=== PATIENT | female | born 1955 | race Two or more races ===

== ENCOUNTER 2024-04-14 12:42 | Emergency (ER) | payer OTHER, SELFPAY ==
--- NOTE | ~2024-04-14 | XR_ITS ---
EXAMINATION: XR CHEST CLINICAL INFORMATION: chest pain COMPARISON: None available. TECHNIQUE: Frontal view of the chest was obtained. FINDINGS: No significant abnormality is noted involving the heart, lungs, mediastinum, bony thorax or soft tissues. XR/XR chest 1V IMPRESSION: Unremarkable examination. Electronically signed by: Luis Flores MD 04/14/2024 04:04 PM [facility]
--- NOTE | ~2024-04-14 | XR_ITS ---
EXAMINATION: XR ABDOMEN KUB CLINICAL INDICATION: constipation COMPARISON: None available. TECHNIQUE: AP view of the abdomen. FINDINGS: The bowel gas pattern is normal with no evidence of ileus or obstruction. Minimal gaseous distention of the transverse colon. Moderate stool in the colon with very little stool in the rectum. No unusual soft tissue calcifications are noted. The bones are unremarkable. XR/XR KUB IMPRESSION: Moderate stool burden. No evidence of bowel obstruction. Electronically signed by: Richie Dahl MD 04/14/2024 07:40 PM [facility]
[2024-04-14 13:29] VITALS: BP 106/54; PULSE 66; RESP 18; TEMP 36.8; O2SAT 96; BMI 23.6
--- NOTE | 2024-04-14 13:37 | ECG_ITS ---
Test Reason : DIZZINESS Blood Pressure : / mmHG Vent. Rate : 060 BPM Atrial Rate : 060 BPM P-R Int : 144 ms QRS Dur : 086 ms QT Int : 396 ms P-R-T Axes : 065 013 017 degrees QTc Int : 396 ms Normal sinus rhythm Normal ECG No previous ECGs available Referred By: Generic ED Physician Electronically Signed By:BEN RIVAS MD
[2024-04-14 14:31] LABS: MANUAL DIFF FLAG NO
[2024-04-14 14:34] LABS: Basophils Percent Auto 0.6 % (0-2); Eosinophils Percent Auto 0.6 % (0-4); Hematocrit 33.6 % (37.0-47.0); Hemoglobin 11.8 g/dl (12.0-16.0); Imm Gran Abs Auto 0.02 X10*3/uL (0.00-0.03); Imm Gran Pct Auto 0.3 % (0.0-0.4); Lymphocytes Absolute Auto 1.7 X10*3/uL (1.2-4.9); Mean Corpuscular HGB Conc 35.1 g/dl (31.0-35.0); Mean Corpuscular Hemoglobin 31.1 pg (27.0-33.0); Mean Corpuscular Volume 88.4 fL (80.0-98.0); Monocytes Absolute Auto 0.6 X10*3/uL (0.1-1.2); Monocytes Percent Auto 8.6 % (2-11); Neutrophils Absolute Auto 4.4 x10*3/uL (2.0-8.3); Neutrophils Percent Auto 64.9 % (45-73); Platelet Count 246 X10*3/uL (160-400); Red Cell Distribution Width 12.9 % (11.0-16.0); White Blood Count 6.7 X10*3/uL (4.8-10.8)
[2024-04-14 14:49] LABS: Alanine Aminotransferase 20 U/L (0-31); Albumin Level 4.4 g/dL (3.5-5.0); Alkaline Phosphatase 87 U/L (39-117); Anion Gap 12 (12-20); Aspartate Amino Transferase 32 U/L (5-31); Bilirubin Total 0.3 mg/dL (0.0-1.0); Blood Urea Nitrogen 18 mg/dL (9-16); Calcium 10.1 mg/dL (8.4-10.2); Carbon Dioxide 26 mmol/L (22-29); Chloride 94 mmol/L (96-108); Estimated Glomerular Filt Rate 45; Glucose Random 99 mg/dL (60-115); Lipase 35 U/L (8-78); Magnesium 1.7 mg/dL (1.6-2.6); Potassium 3.9 mmol/L (3.3-5.1); Sodium 128 mmol/L (135-145); Total Protein 7.2 g/dL (6.5-8.0)
[2024-04-14 14:52] LABS: Troponin-I High Sensitivity 5.6 ng/L (<3.5-17.0)
[2024-04-14 15:14] LABS: Influenza A PCR NEGATIVE (Negative); Influenza B PCR NEGATIVE (Negative); Resp Syncy Virus RNA Qual PCR NEGATIVE (Negative); SARS COV2 PCR INHOUSE NEGATIVE (Negative)
[2024-04-14 18:18] VITALS: BP 122/59; PULSE 62; RESP 16; TEMP 36.1; O2SAT 98
--- NOTE | 2024-04-14 18:18 | ED_ITS ---
HPI - General Adult General Chief complaint: General Medical Stated complaint: headache, bp problem Time Seen by Provider: 04/14/24 20:55 Source: patient, family and old records reviewed Mode of arrival: ambulatory Limitations: no limitations History of Present Illness ED Provider: KVNG HARRELL narrative: 68 yo female with PMH of HLD, HTN managed by Lisinopril / HCTZ, metoprolol, amlodipine, edema on lasix 20mg, anxiety on lorazepam who has been dealing with headaches for months top of head and tingling. No associated n/v. She has been having issues where BP is fine during the day then up at night and family thought this was causing her headache. Her BP was low at a PCP appointment so 3 weeks ago they cut metoprololto 25mg daily. She still has the high BP at night but in the AM it is fine. Her headaches are at night - she has seen her PCP and has been given meds for it but it does not help she even had normal brain MRI. Family here today as they are worried about the BP also they tell me on average she drinks 5 bottles of 16 oz water a day to stay hydrated complaint: BP Onset (ago): month(s) Location: head Radiation: non-radiation Severity: moderate Quality: other Pain Consistency: intermittent Relieving factors: none Exacerbating factors: other (nighttime) Associated symptoms: denies other symptoms Treatments prior to arrival: other Related Data Allergies Allergy/AdvReac Type Severity Reaction Status Date / Time No Known Allergies Allergy Verified 04/14/24 13:37 Review of Systems 2 Review of Systems: Constitutional : No Fever, No Chills, No Fatigue ENT/Mouth : No sore throat, No Rhinorrhea Eyes: No Eye Pain, No Swelling, No Redness Cardiovascular : No Chest Pain, No SOB, No Dyspnea on Exertion Respiratory : No Cough, No Sputum Gastrointestinal : No Nausea, No Vomiting, No Diarrhea, No abdominal Pain Genitourinary : No Dysuria, No Urinary Frequency, No Hematuria, Musculoskeletal : No joint pain, No Myalgias, No Joint Swelling Skin : No Skin Lesions, No rash Neuro : No Weakness, No Numbness, No Dizziness, positive Headache All other systems reviewed and are negative PMFSH Social History Social History Smoked in Last 30 Days: No Use of substances other than those prescribed or required for medical reasons: No Advance Directives: No Advance Directives Information Provided: Yes Physical Exam ED Vital Signs: Vital Signs - 24 hr 04/14/24 13:29 04/14/24 18:18 04/14/24 20:58 Temperature 98.2 F 97 F 97.6 F Pulse Rate 66 62 61 Respiratory Rate 18 16 18 Blood Pressure 106/54 L 122/59 L 169/50 H Pulse Oximetry 96 98 98 Oxygen Delivery Method Room Air Room Air Room Air BMI result Body Mass Index 23.6 Appearance: Alert. Oriented X3. No acute distress. Eyes: Pupils equal, round and reactive to light. ENT: Pharynx normal. Neck: Normal inspection. Neck supple. CVS: Normal heart rate and rhythm. Pulses normal. Respiratory: No respiratory distress. Breath sounds normal. Abdomen: Soft and nontender. Skin: Skin warm and dry. Normal skin color. Normal skin turgor. Extremities: No lower extremity edema. No calf ttp Neuro: Oriented X 3. No motor deficit. No sensory deficit. Course Course Course Narrative: This is an RME: Additional HPI, ROS, PE not included below will be deferred to primary provider. RME assessment and note performed by: Mecca Ervin PA-C This is a 88-fcwn-fal-female, with hx of arthitis, HLD, HTN, peripheral edema, who presents to the ER with complaints of decreased appetite, dizziness, headaches fluctuation in blood pressure. Plan: Labs, UA, EKG, further ER evaluation needed. Medications Administered Generic Name Dose Route Start Last Admin Trade Name Freq PRN Reason Stop Dose Admin Sodium Chloride 500 mls @ 500 mls/hr 04/14/24 21:17 04/14/24 22:07 Ns IV 04/14/24 22:16 Not Given .Q1H ONE Medical Decision Making Medical Decision Making MDM Narrative: 68 yo female with PMH of HLD, HTN managed by Lisinopril / HCTZ, metoprolol, amlodipine, edema on lasix 20mg, anxiety on lorazepam here with c/o chronic headache though no fevers and given chronicity doubt SAH or mass or BAND SHOVER infection - she had normal MRI during the episodes. She also has fluctuating BP and I am concerned about her water intake. At this time her Na is low at 128 but she has no symptoms and I think just holding her water will correct it. She is not altered or clinically dry on exam. I am not going to repeat imaging given her MRI. I think cutting her water intake down and repeating Na in 2 days as well as taking amlodipine at dinner time might help Differential Diagnosis Differential Diagnoses: The differential diagnosis associated with the presentation includes too much water intake, med reconciliation, HTN Admission/Observation Consideration of admission/observation: Escalation of care including admission/observation considered no drop in NA can be managed closely as outpatient Lab Data MDM Lab Attestation statement: I reviewed the patient's lab results. 04/14/24 14:27 04/14/24 21:40 Labs: Lab Results 04/14/24 04/14/24 04/14/24 Range/Units 14:27 19:48 21:40 WBC 6.7 (4.8-10.8) X10*3/uL RBC 3.80 L (4.20-5.50) X10*6/uL Hgb 11.8 L (12.0-16.0) g/dl Hct 33.6 L (37.0-47.0) % MCV 88.4 (80.0-98.0) fL MCH 31.1 (27.0-33.0) pg MCHC 35.1 H (31.0-35.0) g/dl RDW 12.9 (11.0-16.0) % Plt Count 246 (160-400) X10*3/uL MPV 10.0 (9.4-12.3) fL Immature Gran % (Auto) 0.3 (0.0-0.4) % Neut % (Auto) 64.9 (45-73) % Lymph % (Auto) 25.0 (20-40) % [place] % (Auto) 8.6 (2-11) % Eos % (Auto) 0.6 (0-4) % Baso % (Auto) 0.6 (0-2) % Lymph # (Auto) 1.7 (1.2-4.9) X10*3/uL [place] # (Auto) 0.6 (0.1-1.2) X10*3/uL Eos # (Auto) 0.0 (0.0-0.4) X10*3/uL Baso # (Auto) 0.0 (0.0-0.2) X10*3/uL Abs Immat Gran (auto) 0.02 (0.00-0.03) X10*3/uL Absolute Neuts (auto) 4.4 (2.0-8.3) x10*3/uL Absolute Nucleated RBC 0.000 (0.0-0.012) X10*3/uL Nucleated RBC % (auto) 0.0 (0.0-0.2) /100WBC Sodium 128 L 128 L (135-145) mmol/L Potassium 3.9 (3.3-5.1) mmol/L Chloride 94 L (96-108) mmol/L Carbon Dioxide 26 (22-29) mmol/L Anion Gap 12 (12-20) BUN 18 H (9-16) mg/dL Creatinine 1.18 (0.5-1.4) mg/dL Estim Creat Clear Calc 35.0 Estimated GFR 45 Random Glucose 99 (60-115) mg/dL Calcium 10.1 (8.4-10.2) mg/dL Magnesium 1.7 (1.6-2.6) mg/dL Total Bilirubin 0.3 (0.0-1.0) mg/dL AST 32 H (5-31) U/L ALT 20 (0-31) U/L Alkaline Phosphatase 87 (39-117) U/L Troponin I High Sens 5.6 (<3.5-17.0) ng/L Total Protein 7.2 (6.5-8.0) g/dL Albumin 4.4 (3.5-5.0) g/dL Lipase 35 (8-78) U/L Urine Color Yellow Urine Appearance Clear Urine pH 5.0 (5.0-9.0) Ur Specific [place] 1.025 (1.005-1.025) Urine Protein Negative (Neg-Trace) mg/dL Urine Glucose (UA) Negative (Negative) mg/dL Urine Ketones Negative (Negative) mg/dL Urine Blood Negative (Negative) Urine Nitrite Negative (Negative) Ur Leukocyte Esterase Moderate (2+) H (Negative) Urine RBC 0-2 (0-2) /HPF Urine WBC 6-10 H (0-5) /HPF Ur Squamous Epith Cells 0-2 (0-2) /HPF Urine Bacteria None Seen (None Seen) Hyaline Casts 3-5 (0-2) /LPF Influenza Type A (PCR) NEGATIVE (Negative) Influenza Type B (PCR) NEGATIVE (Negative) RSV RNA Qual (PCR) NEGATIVE (Negative) SARS-CoV-2 RNA (RT-PCR) NEGATIVE (Negative) Independent Interpretation I performed an independent interpretation of an: EKG and Plain X-Ray (constipated) Interpretation: Rate: 60 Rhythm: NSR [place]: normal Normal P waves. Normal KRISTY. Normal QRS complex. ST T wave : inverted t waves V1 and III no ENDY qTC: 396 prior studies: no acute ischemia The study has been interpreted contemporaneously by me. . Radiology Impression Discussion of test interpretation with radiology: I have reviewed the radiologist's reading. Independent Historian Clinical information obtained from an independent historian. History obtained from or confirmed by: Other (daughter) External Record Review External record reviewed: Outpatient record Discharge Plan Discharge Clinical Impression: Fluctuating blood pressure, Acute hyponatremia Chronic headache Qualifiers: Headache type: unspecified Intractability: not intractable Qualified Code(s): R 51.9 - Headache, unspecified Patient Disposition: Home, Self-Care Instructions: Hyponatremia (ED), Chronic Hypertension (ED) Additional Instructions: labs other than drop in sodium which is due to your water intake ONLY DRINK 3 BOTTLES OF 16 OUNCES OF WATER START TAKING AMLODIPINE 5MG AT DINNER TIME FOLLOW UP WITH YOUR DOCTOR AND REPEAT YOUR SODIUM LEVEL ON FRIDAY PLEASE RETURN HERE FOR ANY WORSENING SYMPTOMS OR CONCERNS. Print Language: Tongan
[2024-04-14 19:58] LABS: Appearance Urine Clear; Color Urine Yellow; Glucose Urine UA Negative (Negative); Leukocyte Esterase Urine Moderate (2+) (Negative); Nitrite Urine Negative (Negative); Specific Gravity - Urine 1.025 (1.005-1.025); UMIC TRIGGER UACC YES; Urine Blood Negative (Negative); Urine Ketones Negative (Negative); Urine Protein Negative (Neg-Trace)
[2024-04-14 20:10] LABS: Bacteria Urine None Seen (None Seen); RBC Urine 0-2 /HPF (0-2); Squamous Epithelial Cell Urine 0-2 /HPF (0-2); UACC Culture Trigger YES
[2024-04-14 20:58] VITALS: BP 169/50; PULSE 61; RESP 18; TEMP 36.4; O2SAT 98
[2024-04-14 21:57] LABS: Sodium 128 mmol/L (135-145)
[2024-04-14 22:25] VITALS: BP 143/56; PULSE 62; RESP 18; TEMP 36.4; O2SAT 97
[2024-04-14 22:32] VITALS: BP 143/56; PULSE 62; RESP 18; TEMP 36.4; O2SAT 97
== END 2024-04-14 22:39 | disposition home or self-care (01) ==
PROVIDERS: Physician Assistant Medical; Emergency Provider Emergency Medicine; PCP Physician Assistant
DX: R51.9 Headache, unspecified (principal); E87.1 Hypo-osmolality and hyponatremia; I99.8 Other disorder of circulatory system; R60.0 Localized edema; Z03.818 Encounter for observation for suspected exposure to other biological agents ruled out; I10 Essential (primary) hypertension; E78.5 Hyperlipidemia, unspecified; Z79.899 Other long term (current) drug therapy
CPT/HCPCS: 0241U; 36415; 71045; 74018; 80053; 81001; 81003; 83690; 83735; 84295; 84484; 85025; 87086; 93005; 99283; 99284

== ENCOUNTER → 2024-04-14 13:37 | Outpatient (BNV) | payer OTHER, SELFPAY | PROVIDERS: PCP Physician Assistant; Visit Provider Internal Medicine Cardiovascular Disease | DX: R42 Dizziness and giddiness (principal) | CPT/HCPCS: 93010 ==

== ENCOUNTER 2024-04-19 12:23 | Outpatient (AMB) | payer OTHER, SELFPAY ==
--- NOTE | 2024-04-19 12:29 | MHC.OFFVIS ---
Vital Signs 04/19/24 12:34 Height 5 ft 2 in Weight 132 lb BMI 24.1 BP 98/60 Blood Pressure Location Lt brachial Position Sitting Pulse 77 Pulse Source Pulse Oximeter Pulse Oximetry (%) 98 Oxygen Delivery Method Room Air Intake Visit Reasons: [id number] / BP problem Ostomy Rn Required: No Accompanied by: Daughter Allergies No Known Allergies Allergy (Verified 04/19/24 12:35) Do you need a note to return to daycare/school/sports/work: No HPI Comments Details: 68y/o female comes here for evaluation of headaches and dizziness. It started about 4 - 6months ago. she describes the headaches are tingling in the parietal region and strong pressure . she saw her PCP at that time . MRI brain was normal as per patient.she says the headaches lasts the whole day. she has light sensitivity and nausea. she takes tylenol- helps for 2 hrs and recurs again.she was taking tylenol 1300mg q 2 hrs and has decreased to q 3 hrs. She was given sumatriptan but it makes her dizzy. she was recently in ER for hyponatremia . Her furosemide was stopped. Her sodium was 128 . she also had fluctuating BP as per ER notes. [facility] Medical History (Updated 04/19/24 @ 13:04 by Nadja Alcantara MD) Headache Cervicalgia Insomnia Depression Arthritis HTN (hypertension) Physical Exam Vital Signs: Last Vital Signs Pulse 77 04/19/24 12:34 BP 98/60 04/19/24 12:34 Pulse Ox 98 04/19/24 12:34 Oxygen Delivery Method Room Air 04/19/24 12:34 BMI result Body Mass Index 24.1 Const Other: patient has cough and clod. she says she was tested for COVID and was negative. General: cooperative and comfortable Nutritional Appearance: average body habitus Orientation/consciousness: patient oriented x3 Eyes Pupils: Equal, round and reactive pupils present Neuro Other: Neck - pain in the right splenius, occipitalis, semispinalis and trapezius. General: patient oriented x3, gait normal, tone normal, moves all extremities and no focal motor deficits Cranial nerves: Yes Facial sensation intact/muscles of mastication intact, Yes Equal, round and reactive pupils present, Yes Bilaterally intact EOM present, Yes Nystagmus not present, Yes Normal facial strength present, Yes Midline tongue present, Yes Symmetric palate elevation present and Yes Ability to bilaterally elevate shoulders present Cognition (Neuro): normal cognition Gait exam (Neuro): Normal gait present Motor exam (neuro): 5/5 motor strength present throughout and Normal motor muscle tone present throughout Deep tendon reflexes (DTR's): Right triceps reflex intensity grade: 1+, Left triceps reflex intensity grade: 1+, Rt Biceps (C5, C6): 1+, Left biceps reflex intensity grade: 1+, Right brachioradialis reflex intensity grade: 1+, Left brachioradialis reflex intensity grade: 1+, Right patellar reflex intensity grade: 1+ and Left patellar reflex intensity grade: 1+ Coordination: [id number] test normal Assessment & Plan Assessment & Plan (1) Cervicalgia: Code(s): M54.2 - Cervicalgia Category: Medical (2) Headache: Code(s): R51.9 - Headache, unspecified Category: Medical Qualifiers: Headache type: cervicogenic headache Qualified Code(s): G44.86 - Cervicogenic headache Plan Suggested to decrease tylenol use as it may be causing rebound headaches Increase baclofen 10 mg bid PT for myofascial release. will cosnider sleep study F/u PCP for her flu like symptoms Orders: Orders PT Evaluation and Treatment Today M54.2 - Cervicalgia Medications: New baclofen 10 mg PO BID 60 tabs 2RF Coding Level of Care Code New Pt Level 4 (28340) Diagnoses Cervicalgia M54.2 Cervicogenic headache G44.86 Headache type: cervicogenic headache
[2024-04-19 12:34] VITALS: BP 98/60; PULSE 77; O2SAT 98; BMI 24.1
== END 2024-04-19 13:15 | disposition home or self-care (01) ==
PROVIDERS: PCP Physician Assistant; Visit Provider Psychiatry & Neurology Neurology
DX: M54.2 Cervicalgia (principal); G44.86 Cervicogenic headache
CPT/HCPCS: 99204

== ENCOUNTER → 2024-04-19 12:23 | Outpatient (BNVA) | payer OTHER, SELFPAY | PROVIDERS: PCP Physician Assistant; Visit Provider Psychiatry & Neurology Neurology | DX: G44.86 Cervicogenic headache (principal); M54.2 Cervicalgia; R42 Dizziness and giddiness | CPT/HCPCS: 99202 ==

== ENCOUNTER 2024-07-22 09:33 | Outpatient (AMB) | payer OTHER, SELFPAY ==
--- NOTE | 2024-07-22 09:38 | MHC.OFFVIS ---
Vital Signs 07/22/24 09:39 Height 5 ft 2 in Weight 135 lb BMI 24.7 BP 140/78 H Blood Pressure Location Rt brachial Position Sitting Pulse 57 Pulse Source Pulse Oximeter Pulse Oximetry (%) 97 Oxygen Delivery Method Room Air Intake Visit Reasons: 3 mo follow up Intake Note: Patient presents for follow up med trial Baclofen and PT not done (daughter informed) Allergies No Known Allergies Allergy (Verified 07/22/24 09:40) Medication List - Last Reconciled 07/22/24 by Nadja Alcantara MD amlodipine 2.5 mg PO DAILY aspirin 81 mg PO DAILY baclofen 10 mg PO BID candesartan 16 mg PO DAILY diclofenac sodium 1% (Arthritis Pain (diclofenac)) 4 grams topical QID ferrous sulfate 325 mg PO DAILY fluoxetine 60 mg PO DAILY fluticasone furoate 50 mcg/actuation inhalation furosemide 20 mg PO DAILY hydrocortisone 2.5% 1 appl topical BID PRN hydroxyzine HCl 25 mg PO TID PRN metoprolol succinate ER 25 mg PO BID plecanatide (Trulance) 3 mg PO DAILY sumatriptan succinate 25 mg PO Q2-4H PRN zolpidem 5 mg PO BEDTIME HPI Comments Details: 69y/o female comes here for follow up of headaches and dizziness.She decreased tylenol use to 4 tablets a day. SHe did not do PT and her daughter was not able to take her.she was doing well until 2 weeks ago she started getting headaches again Dizziness improved with electrolyte water. History from initial visit-It started about 4 - 6months ago. she describes the headaches are tingling in the parietal region and strong pressure . she saw her PCP at that time . MRI brain was normal as per patient.she says the headaches lasts the whole day. she has light sensitivity and nausea. she takes tylenol- helps for 2 hrs and recurs again.she was taking tylenol 1300mg q 2 hrs and has decreased to q 3 hrs. She was given sumatriptan but it makes her dizzy. she was recently in ER for hyponatremia . Her furosemide was stopped. Her sodium was 128 . she also had fluctuating BP as per ER notes. [facility] Medical History (Updated 04/19/24 @ 13:04 by Nadja Alcantara MD) Headache Cervicalgia Insomnia Depression Arthritis HTN (hypertension) Physical Exam Vital Signs: Last Vital Signs Pulse 57 07/22/24 09:39 BP 140/78 H 07/22/24 09:39 Pulse Ox 97 07/22/24 09:39 Oxygen Delivery Method Room Air 07/22/24 09:39 BMI result Body Mass Index 24.7 Const Other: patient has cough and clod. she says she was tested for COVID and was negative. General: cooperative and comfortable Nutritional Appearance: average body habitus Orientation/consciousness: patient oriented x3 Eyes Pupils: Equal, round and reactive pupils present Neuro Other: Neck - pain in the right splenius, occipitalis, semispinalis and trapezius. General: patient oriented x3, gait normal, tone normal, moves all extremities and no focal motor deficits Cranial nerves: Yes Facial sensation intact/muscles of mastication intact, Yes Equal, round and reactive pupils present, Yes Bilaterally intact EOM present, Yes Nystagmus not present, Yes Normal facial strength present, Yes Midline tongue present, Yes Symmetric palate elevation present and Yes Ability to bilaterally elevate shoulders present Cognition (Neuro): normal cognition Gait exam (Neuro): Normal gait present Motor exam (neuro): 5/5 motor strength present throughout and Normal motor muscle tone present throughout Coordination: [id number] test normal Assessment & Plan Assessment & Plan (1) Cervicalgia: Code(s): M54.2 - Cervicalgia Category: Medical (2) Headache: Code(s): R51.9 - Headache, unspecified Category: Medical Qualifiers: Headache type: cervicogenic headache Qualified Code(s): G44.86 - Cervicogenic headache Plan Suggested to decrease tylenol use as it may be causing rebound headaches Increase baclofen 10 mg 2 tabs qhs Magnesium 250mg qhs PT for myofascial release. will consider sleep study F/u PCP for her flu like symptoms Medications: Changed From baclofen 10 mg PO BID 60 tabs 0RF To baclofen 20 mg (2 x 10 mg) PO .qhs 60 tabs 1RF Coding Level of Care Code Est Pt Level 4 (89207) Complex EM visit Add On G2211 Diagnoses Cervicalgia M54.2 Cervicogenic headache G44.86 Headache type: cervicogenic headache
[2024-07-22 09:39] VITALS: BP 140/78; PULSE 57; O2SAT 97; BMI 24.7
--- OUTSIDE RECORDS SUMMARY | 2024-07-22 10:31 | XMS_ITS | Encounter Summary ---
Author Organization [facility] Address [address] [place] [address] Care Team Providers Care Nuclear Licensing Engineer Name Role Phone Peter Evans PA-C Primary Care Provider + [phone] Reason for Referral * Care Coordination (Routine) - Authorized Specialty Diagnoses / Procedures Referred By Contjose t Referred To Contact Diagnoses Encounter for screening mammogram for malignant neoplasm of breast Procedures SCREENING MAMMOGRAM BILATERAL Peter Evans PA-C [address] [place] [address] Phone: tel: fax: [facility], [facility] Breast And [address] [place], [place] Phone: tel: fax: Referral ID Status Reason Start Date Expiration Date Visits Requested Visits Authorized [id number] Authorized Diagnostic Imaging 06/16/2024 06/16/2025 1 1 Reason for Visit * Reason Comments Coronary Artery Disease Encounter Details Date Type Department Care Team ([facility] st Contact Info) Description 06/16/2024 11:00 AM EST Office Visit [facility] [address] [place] [phone] Peter Evans PA-C [address] [place] [phone] Mixed headache (Primary Dx); Coronary artery disease involving [place] coronary artery of [place] heart with other form of angina pectoris (HCC-CMS); Hyperlipemia, mixed; Mild anemia; Encounter for screening mammogram for malignant neoplasm of breast; Mild vitamin D deficiency; Hypertension, essential, benign Social History Tobacco Use Types Packs/Day Years Used Date Smoking Tobacco: Former Cigarettes Q uit: 04/07/2013 Smokeless Tobacco: Never Tobacco Cessation:Counseling Given: Not Answered Alcohol Use Standard Drinks/Week Comments No 0 (1 standard drink = 0.6 oz pur e alcohol) Social Connections Answer Date Recorded Connectedness 1 10/29/2023 Financial Resource Strain Answer Date R ecorded Financial Resource Strain 1 2023 Stress Answer Date Recorded Stress 1 10/29/2023 Physical Activity Answer Date Recorded Physical Activity 0 12/26/2018 Food Insecurity Answer Date Recorded Food 1 10/29/2023 Transportation Needs Answer Date Record ed Transportation 1 10/29/2023 Housing Stability Answer Date Recorded Housing 1 10/29/2023 Safety and Environment Answer Date Ric rded Safety 1 10/29/2023 Utilities Answer Date Recorded Utilities 1 10/29/2023 Employment Answer Date Recorded Stress 0 10/02/2022 Comments No Sex and Gender Information Value Date Recorded Sex Assigned at Female 04/23/2017 5:41 PM PST Legal Sex Female 11:36 AM PDT Gender Identity Female 04/23/2017 5:41 PM PST Sexual Orientation Straight 04/23/2017 5: 41 PM PST documented as of this encounter Last Filed Vital Signs Vital Sign Reading Time Taken Comments Blood Pressure 112/60 06/16/2024 10:57 AM EST Pulse 80 06/16/2024 10:57 AM EST Temperature 36.5 ??C (97.7 ??F) 06/16/2024 10:[address] Respiratory Rate 16 06/16/2024 10:57 AM EST Oxygen Saturation 97% 06/16/2024 10:57 AM EST Inhaled Oxygen Concentration - - Weight 60.8 kg (134 lb) 06/16/2024 10:57 AM EST Height 157.5 cm (5' 2 ) 06/16/2024 10:57 AM EST Body Mass Index 24.51 06/16/2024 10:57 AM EST documented in this encounter Progress Notes * Peter Evans PA-C - 07/06/2024 10:13 AM ESTAddended by: PETER EVANS on: 07/06/2024 10:13 AM Modules accepted: Orders * Peter Evans PA-C - 06/16/2024 12:41 PM EST Subjective HPI Latricia Fernandes is a 69 year old female who presents for routine follow up on chronic conditions C/o DAILY headaches since Nov Reports that she usually has a headache 3 times of head Tends to be over the top of the head Mild alleviation with Tylenol Objective Vitals: 06/16/24 1057 BP: 112/60 BP Site: Right Arm BP Position: Sitting BP Cuff Size: Regular Adult Pulse: 80 Resp: 16 Temp: 97.7 ??F (36.5 ??C) TempSrc: Oral SpO2: 97% Weight: 134 lb (60.8 kg) Height: 5' 2 (1.575 m) Estimated body mass index is 24.51 kg/m?? as calculated from the following: Height as of this encounter: 5' 2 (1.575 m). Weight as of this encounter: 134 lb (60.8 kg). Facility age limit for growth %babar is 20 years. Physical Exam Vitals and nursing note reviewed. Constitutional: General: She is not in acute distress. Appearance: Normal appearance. She is well-developed. She is not ill-appearing or diaphoretic. HENT: Head: Normocephalic and atraumatic. Not macrocephalic. Right Ear: Tympanic membrane, ear canal and external ear normal. Left Ear: Tympanic membrane, ear canal and external ear normal. Nose: Nose normal. Mouth/Throat: Pharynx: Uvula midline. No oropharyngeal exudate. Eyes: General: Lids are normal. Right eye: No discharge. Left eye: No discharge. Conjunctiva/sclera: Conjunctivae normal. Pupils: Pupils are equal, round, and reactive to light. Neck: Thyroid: No thyroid mass or thyromegaly. Trachea: Trachea normal. No tracheal deviation. Cardiovascular: Rate and Rhythm: Normal rate and regular rhythm. Chest Wall: PMI is not displaced. Pulses: Normal pulses. Heart sounds: Normal heart sounds. No murmur heard. No friction rub. No gallop. Pulmonary: Effort: Pulmonary effort is normal. No accessory muscle usage or respiratory distress. Breath sounds: Normal breath sounds. No decreased breath sounds, wheezing, rhonchi or rales. Abdominal: General: Bowel sounds are normal. There is no distension. Palpations: Abdomen is soft. There is no hepatomegaly, splenomegaly or mass. Tenderness: There is no abdominal tenderness. There is no guarding or rebound. Musculoskeletal: General: No tenderness or deformity. Normal range of motion. Cervical back: Full passive range of motion without pain, normal range of motion and neck supple. No edema. Normal range of motion. Lymphadenopathy: Cervical: No cervical adenopathy. Skin: General: Skin is warm and dry. Coloration: Skin is not pale. Findings: No abrasion, erythema or rash. Neurological: Mental Status: She is alert and oriented to person, place, and time. Motor: No tremor, atrophy, abnormal muscle tone or seizure activity. Gait: Gait normal. Psychiatric: Speech: Speech normal. Behavior: Behavior normal. Behavior is cooperative. Assessment and Plan R51.9 Mixed headache (primary encounter diagnosis)--d/c lisinopril, start candesartan, rtc in 1 month. 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-CMS) Plan : BLOOD COUNT COMPLETE AUTO&AUTO DIFRNTL WBC COMPREHENSIVE METABOLIC PANEL TSH W/RFLX FREE T4 SEDIMENTATION RATE RBC AUTOMATED VITAMIN B12 & FOLATE ASSAY OF MAGNESIUM 25 HYDROXY INCLUDES FRACTIONS IF PERFORMED E78.2 Hyperlipemia, mixed Plan : BLOOD COUNT COMPLETE AUTO&AUTO DIFRNTL WBC COMPREHENSIVE METABOLIC PANEL TSH W/RFLX FREE T4 SEDIMENTATION RATE RBC AUTOMATED VITAMIN B12 & FOLATE ASSAY OF MAGNESIUM 25 HYDROXY INCLUDES FRACTIONS IF PERFORMED D64.9 Mild anemia Plan : BLOOD COUNT COMPLETE AUTO&AUTO DIFRNTL WBC COMPREHENSIVE METABOLIC PANEL TSH W/RFLX FREE T4 SEDIMENTATION RATE RBC AUTOMATED VITAMIN B12 & FOLATE ASSAY OF MAGNESIUM 25 HYDROXY INCLUDES FRACTIONS IF PERFORMED Z12.31 Encounter for screening mammogram for malignant neoplasm of breast Plan : SCREENING MAMMOGRAM BILATERAL BLOOD COUNT COMPLETE AUTO&AUTO DIFRNTL WBC COMPREHENSIVE METABOLIC PANEL TSH W/RFLX FREE T4 SEDIMENTATION RATE RBC AUTOMATED VITAMIN B12 & FOLATE ASSAY OF MAGNESIUM 25 HYDROXY INCLUDES FRACTIONS IF PERFORMED E55.9 Mild vitamin D deficiency Plan : BLOOD COUNT COMPLETE AUTO&AUTO DIFRNTL WBC COMPREHENSIVE METABOLIC PANEL TSH W/RFLX FREE T4 SEDIMENTATION RATE RBC AUTOMATED VITAMIN B12 & FOLATE ASSAY OF MAGNESIUM 25 HYDROXY INCLUDES FRACTIONS IF PERFORMED I10 Hypertension, essential, benign-- monitor for HYPOTENSION Plan : CANDESARTAN 16 MG TABLET - Take 1 Tablet by mouth nightly at bedtime D/c lisinopril documented in this encounter Miscellaneous Notes * Result Encounter Note - Peter Evans PA-C - 07/06/2024 10:13 AM EST Please let her know her labs show a mild anemia, I sent iron tabs to take together with vit C dailyto help with this. * Patient Instructions - Peter Evans PA-C - 06/16/2024 10:56 AM EST If you are not able to keep your appointment please call 24-48 hours before your appointment to cancel or reschedule. documented in this encounter Plan of Treatment Upcoming Encounters Date Type Department Care Team (Late st Contact Info) Description 09/29/2024 10:00 AM EDT Office Visit [address] [phone] Peter Evans PA-C [address] [place] [phone] Scheduled Orders Name Type Priority Associated Diagnoses Orde r Schedule SCREENING MAMMOGRAM BILATERAL Imaging Routine Encounter for screening mammogram for malignant neoplasm of breast Ordered: 06/16/2024 documented as of this encounter Goals Goal Patient Goal Type Associated Problems Recent Progress Patient-Stated? Author Blood Pressure < 130/80 Blood Pressure Hypertension, essential, benign 130/62( 025 10:10 AM EDT) No Brandin Fuentes, PharmD documented as of this encounter Procedures Procedure Name Priority Date/Time Associated Diagnosis Comments TSH W/RFLX FREE T4 Routine 06/16/2024 11 :21 AM EST Coronary artery disease involving [place] coronary artery of [place] heart with other form of angina pectoris (HCC-CMS) Hyperlipemia, mixed Mild anemia Encounter for screening mammogram for malignant neoplasm of breast Mixed headache Mild vitamin D deficiency VITAMIN B12 & FOLATE Routine 06/16/2024 11:21 AM EST Coronary artery disease involving [place] coronary artery of [place] heart with other form of angina pectoris (HCC-CMS) Hyperlipemia, mixed Mild anemia Encounter for screening mammogram for malignant neoplasm of breast Mixed headache Mild vitamin D deficiency SEDIMENTATION RATE RBC AUTOMATED Routine 06/16/2024 11:21 AM EST Coronary artery disease involving [place] coronary artery of [place] heart with other form of angina pectoris (HCC-CMS) Hyperlipemia, mixed Mild anemia Encounter for screening mammogram for malignant neoplasm of breast Mixed headache Mild vitamin D deficiency BLOOD COUNT COMPLETE AUTO&AUTO DIFRNTL WBC Routine 06/16/2024 11:21 AM EST Coronary artery disease involving [place] coronary artery of [place] heart with other form of angina pectoris (HCC-CMS) Hyperlipemia, mixed Mild anemia Encounter for screening mammogram for malignant neoplasm of breast Mixed headache Mild vitamin D deficiency ASSAY OF MAGNESIUM Routine 06/16/2024 11 :21 AM EST Coronary artery disease involving [place] coronary artery of [place] heart with other form of angina pectoris (HCC-CMS) Hyperlipemia, mixed Mild anemia Encounter for screening mammogram for malignant neoplasm of breast Mixed headache Mild vitamin D deficiency 25 HYDROXY INCLUDES FRACTIONS IF PERFORMED Routine 06/16/2024 11:21 AM EST Coronary artery disease involving [place] coronary artery of [place] heart with other form of angina pectoris (HCC-CMS) Hyperlipemia, mixed Mild anemia Encounter for screening mammogram for malignant neoplasm of breast Mixed headache Mild vitamin D deficiency COMPREHENSIVE METABOLIC PANEL Routine 06/16/2024 11:21 AM EST Coronary artery disease involving [place] coronary artery of [place] heart with other form of angina pectoris (HCC-CMS) Hyperlipemia, mixed Mild anemia Encounter for screening mammogram for malignant neoplasm of breast Mixed headache Mild vitamin D deficiency documented in this encounter Results * 25 HYDROXY INCLUDES FRACTIONS IF PERFORMED (06/16/2024 11:21 AM EST) VITAMIN D, 25-OH, TOTAL 36 30 - 100 ng/mL [facility] Comment: Vitamin D Status ? 25-OH Vitamin D: Deficiency: ?<20 ng/mL Insufficiency: ? 20 - 29 ng/mL Optimal: ? > or = 30 ng/mL For 25-OH Vitamin D testing on patients on D2-supplementation and patients for whom quantitation of D2 and D3 fractions is required, the QuestAssureD(TM) 25-OH VIT D, (D2,D3), LC/MS/MS is recommended: order code [id number] (patients >2yrs). COMMENT [facility] Blood Blood / Unknown 06/16/2024 1 1:21 AM EST 06/16/2024 11:22 AM EST Narrative [facility] - 06/17/2024 4:51 AM EST See Note 1 Note 1 For additional information, please refer to http://education.[employer]/faq/SRX189 (This link is being provided for informational/ educational purposes only.) us Peter Evans PA-C LAB - BLOOD DRAW Final Resul t [facility] [address] [address], [facility] [address] [place] [address] * ASSAY OF MAGNESIUM (06/16/2024 11:21 AM EST) [facility] MAGNESIUM 1.7 1.5 - 2.5 mg/dL [facility] Blood Blood / Unknown 06/16/2024 1 1:21 AM EST 06/16/2024 11:22 AM EST Peter Evans PA-C LAB - BLOOD DRAW Edited Resu lt - Final [facility] [address] [address], [facility] [address] [place] [address] * VITAMIN B12 & FOLATE (06/16/2024 11:21 AM EST) [facility] VITAMIN B12 357 200 - 1,100 pg/mL [facility] Comment: Please Note: Although the reference range for vitamin B12 is 200-1100 pg/mL, it has been reported that between 5 and 10% of patients with values between 200 and 400 pg/mL may experience neuropsychiatric and hematologic abnormalities due to occult B12 deficiency; less than 1% of patients with values above 400 pg/mL will have symptoms. FOLATE, SERUM 14.3 5.5 ng/mL [facility] Comment: ? Reference Range ? Low: ? <3.4 ? Borderline: ?3.4-5.4 ? Normal: ?>5.4 Blood Blood / Unknown 06/16/2024 1 1:21 AM EST 06/16/2024 11:22 AM EST Peter VALLEJO-C LAB - BLOOD DRAW Final Resul t Performing Organization Address [facility] [address]/[facility] Co de Phone Number [facility] [address] [address], [email or web address] [address] [phone] * SEDIMENTATION RATE RBC AUTOMATED (06/16/2024 11:21 AM EST) SED RATE BY MODIFIED WESTERGREN 17 0 - 30 mm/h [facility] Blood Blood / Unknown 06/16/2024 1 1:21 AM EST 06/16/2024 11:22 AM EST Peter VALLEJO-C LAB - BLOOD DRAW Final Resul t Performing Organization Address [facility] [address]/[facility] de Phone Number [facility] [place] [employer] [address] [place] [id number], [email or web address] [address] [phone] * TSH W/RFLX FREE T4 (06/16/2024 11:21 AM EST) TSH W/REFLEX TO FT4 1.65 0.40 - 4.50 mIU/L [facility] Blood Blood / Unknown 06/16/2024 1 1:21 AM EST 06/16/2024 11:22 AM EST Peter VALLEJO-C LAB - BLOOD DRAW Final Resul t Performing Organization Address [facility] [address]/[facility] de Phone Number [facility] [address] [address], [email or web address] [address] [phone] * (ABNORMAL) COMPREHENSIVE METABOLIC PANEL (06/16/2024 11:21 AM EST) GLUCOSE 100(H) 65 - 99 mg/dL [facility] Comment: ?Fasting reference interval For someone without known diabetes, a glucose value between 100 and 125 mg/dL is consistent with prediabetes and should be confirmed with a follow-up test. UREA NITROGEN (BUN) 18 7 - 25 mg/dL [facility] CREATININE (blood) 0.90 0.60 - 1.00 mg/dL [facility] EGFR 68 > OR = 60 mL/min/1. 73m2 [facility] BUN/CREATININE RATIO SEE NOTE: [facility] Comment: ?? Not Reported: BUN and Creatinine are within ?? reference range. ? SODIUM 137 135 - 146 mmol/L [facility] POTASSIUM 4.0 3.5 - 5.3 mmol/L [facility] CHLORIDE 98 98 - 110 mmol/L [facility] CARBON DIOXIDE 30 20 - 32 mmol/L [facility] CALCIUM 9.5 8.6 - 10.4 mg/dL [facility] PROTEIN, TOTAL 6.7 6.1 - 8.1 g/dL [facility] ALBUMIN 4.6 3.6 - 5.1 g/dL [facility] GLOBULIN 2.1 1.9 - 3.7 g/dL (calc) [facility] ALBUMIN/GLOBULI N RATIO 2.2 1.0 - 2.5 (calc) [facility] BILIRUBIN, TOTAL 0.4 0.2 - 1.2 mg/dL [facility] ALKALINE PHOSPHATASE 80 37 - 153 U/L [facility] AST 21 10 - 35 U/L [facility] ALT 10 6 - 29 U/L [facility] Blood Blood / Unknown 06/16/2024 1 1:21 AM EST 06/16/2024 11:22 AM EST us Peter Evans PA-C LAB - BLOOD DRAW Edited Resu lt - Final [facility] [address] [address], [facility] [address] [address] * (ABNORMAL) BLOOD COUNT COMPLETE AUTO&AUTO DIFRNTL WBC (06/16/2024 11:21 AM EST) WHITE BLOOD CELL COUNT 6.1 3.8 - 10.8 Thousand/ uL [facility] RED BLOOD CELL COUNT 3.46(L) 3.80 - 5.10 Million/u L [facility] HEMOGLOBIN 10.9(L) 11.7 - 15.5 g/dL [facility] HEMATOCRIT 32.8(L) 35.0 - 45.0 % [facility] MCV 94.8 80.0 - 100.0 fL [facility] MCH 31.5 27.0 - 33.0 pg [facility] MCHC 33.2 32.0 - 36.0 g/dL [facility] Comment: For adults, a slight decrease in the calculated MCHC value (in the range of 30 to 32 g/dL) is most likely not clinically significant; however, it should be interpreted with caution in correlation with other red cell parameters and the patient's clinical condition. RDW 12.9 11.0 - 15.0 % [facility] PLATELET COUNT 244 140 - 400 Thousand/ uL [facility] [place] [employer] MPV 10.7 7.5 - 12.5 fL [facility] ABSOLUTE NEUTROPHILS 4,502 1,500 - 7,800 cells/uL [facility] ABSOLUTE LYMPHOCYTES 1,141 850 - 3,900 cells/uL [facility] ABSOLUTE MONOCYTES 354 200 - 950 cells/uL [facility] ABSOLUTE EOSINOPHILS 61 15 - 500 cells/uL [facility] ABSOLUTE BASOPHILS 43 0 - 200 cells/uL [facility] NEUTROPHILS PCT 73.8 % QUES T [employer] [facility] LYMPHOCYTES 18.7 % [place] [facility] AGNFanplayr [facility] MONOCYTES 5.8 % [facility] [employer] [facility] EOSINOPHILS 1.0 % [place] [facility] [employer] [facility] BASOPHILS 0.7 % 66. com DIAG [employer] [facility] Blood Blood / Unknown 06/16/2024 1 1:21 AM EST 06/16/2024 11:22 AM EST us Peter Evans PA-C LAB - BLOOD DRAW Edited Resu lt - Final [employer] [address] [address], [facility] [address] [phone] documented in this encounter Visit Diagnoses Diagnosis Mixed headache- Primary Headache Coronary artery disease involving [place] coronary artery of [place] heart with other form of angina pectoris (HCC-CMS) Hyperlipemia, mixed Mixed hyperlipidemia Mild anemia Anemia, unspecified Encounter for screening mammogram for malignant neoplasm of breast Other screening mammogram Mild vitamin D deficiency Unspecified vitamin D deficiency Hypertension, essential, benign Essential hypertension, benign documented in this encounter Additional Health Concerns Assessment Noted Time PHQ-9 Depression Total Score: 0 06/16/19 25 10:57 AM PST documented as of this encounter Care Teams Nuclear Licensing Engineer Relationship Specialty Start Date End Date Peter Evans PA-C [address] [place] [phone] PCP - General 02/12/13 documented as of this encounter
--- OUTSIDE RECORDS SUMMARY | 2024-07-22 10:31 | XMS_ITS | Encounter Summary ---
Author Organization [facility] Address [address] [place] [address] Care Team Providers Care Ecological Technical Officer Name Role Phone JamRaymondDebbie PA-C Primary Care Provider + [phone] Reason for Visit * Reason Comments Correspondence Encounter Details Date Type Department Care Team (Late st Contact Info) Description 07/12/2024 Interim Notes [address] [phone] [address] Social History Tobacco Use Types Packs/Day Years Used Date Smoking Tobacco: Former Cigarettes Q uit: 04/07/2013 Smokeless Tobacco: Never Alcohol Use Standard Drinks/Week Comments No 0 [...] PM PST documented as of this encounter Progress Notes * Bess Cisneros MA - 07/12/2024 9:05 AM EDT Faxed to [facility] Rx: 4 wheel rollator with seat documented in this encounter Plan of Treatment Upcoming Encounters Date Type Department Care Team (Late st Contact Info) Description 09/29/2024 10:00 AM EDT Office Visit [facility] [address] [place] [phone] Debbie Polk PA-C [address] [place] [phone] documented as of this encounter Goals Goal Patient Goal Type Associated Problems Recent Progress Patient-Stated? Author Blood Pressure < 130/80 Blood Pressure Hypertension, essential, benign 130/62( 025 10:10 AM EDT) No Branidn Fuentes, PharmD documented as of this encounter Visit Diagnoses Not on filedocumented in this encounter Additional Health Concerns Assessment Noted Time PHQ-9 Depression Total Score: 0 06/16/19 25 10:57 AM PST documented as of this encounter Care Teams Ecological Technical Officer Relationship Specialty Start Date End Date Debbie Polk PA-C [address] [place] [phone] PCP - General 02/12/13 documented as of this encounter
--- OUTSIDE RECORDS SUMMARY | 2024-07-22 10:31 | XMS_ITS | Clinical Summary ---
Author Organization [facility] Address [address] [place] [address] Care Team Providers Care Cheese Cook Name Role Phone Debbie Polk PA-C Primary Care Provider [phone] Source Comments PLEASE NOTE, if this patient is a minor, it may be UNLAWFUL to discuss sensitive information that is contained in these records (such as FAMILY PLANNING, MENTAL HEALTH or SUBSTANCE ABUSE) with the minor patient's parent or other person without the patient's specific authorization.[facility] Allergies Active Allergy Reactions Criticality Noted Date Comments Varicella-Zoster [id number]-[id number] (Pf) Rash High 04/29/2023 SHINGRIX vaccine: rash Medications hydrocortisone 2.5 % creamIndicatio ns:Rash APLIQUE AL AREA AFECTADA DOS VECES AL WILDER 28 g 022 Active acetaminophen (MAPAP ARTHRITIS PAIN) 650 mg CR tabletIndicati ons:Thoracic disc disease TOME DENNY TABLETA ANDREW VECES AL WILDER 90 Tablet 6 022 Active diclofenac sodium (VOLTAREN) 1 % gelIndications :Arthritis of knee, right APPLY 4 GM TWICE DAILY TO BOTH KNEES 300 g 11 022 Active zolpidem (AMBIEN) 5 mg tablet Take 5 mg by mouth Active fluticasone (FLONASE) 50 mcg/actuation nasal sprayIndicatio ns:Viral upper respiratory tract infection TOME DENNY INHALACION INTO EACH NOSTRIL TODOS LOS FRYE 48 mL 1 022 Active LORazepam (ATIVAN) 1 mg tabletIndicati ons:Primary insomnia 023 Active MISCELLANEOUS MEDICAL SUPPLY MISCIndication s:Coronary artery disease involving [place] coronary artery of [place] heart with other form of angina pectoris (HCC-CMS) by miscellaneous route daily. Cool mist humidifier, disp 1, lifetime need, dx CAD 1 Each 023 Active diphenhydrAMIN E (BENADRYL) 25 mg capsuleIndicat ions:Adverse effect of vaccine, initial encounter,Xavi rgic reaction, initial encounter Take 1 Capsule by mouth every 6 (six) hours as needed for itching 15 Capsule 023 Active hydrOXYzine HCL (ATARAX) 25 mg tabletIndicati ons:Adverse effect of vaccine, initial encounter,Xavi rgic reaction, initial encounter TAKE 1 TABLET BY MOUTH 3 TIMES A DAY EVERY DAY. USE THIS MEDICINE NEEDED FOR ITCHING. 90 Tablet 2 024 Active melatonin 3 mg tabletIndicati ons:Primary insomnia Take 1 Tablet by mouth nightly at bedtime as needed for sleep 90 Tablet 1 024 Active aspirin [address] tabletIndicati ons:Coronary artery disease involving [place] coronary artery of [place] heart with other form of angina pectoris (HCC-CMS) TAKE 1 TABLET BY MOUTH DAILY 90 Tablet 3 024 Active atorvastatin (LIPITOR) 80 mg tabletIndicati ons:Hyperlipem ia, mixed TAKE 1 TABLET BY MOUTH DAILY AT BEDTIME 90 Tablet 3 024 Active pantoprazole (PROTONIX) 40 mg EC tabletIndicati ons:Epigastric pain,Nausea TAKE 1 TABLET BY MOUTH DAILY 90 Tablet 3 024 Active furosemide (LASIX) 20 mg tabletIndicati ons:Coronary artery disease involving [place] coronary artery of [place] heart with other form of angina pectoris (HCC-CMS),MALDONADO (dyspnea on exertion) TAKE 1 TABLET BY MOUTH DAILY. 90 Tablet 2 024 Active plecanatide (TRULANCE) 3 mg tab Take 1 Tablet by mouth daily. For constipation 90 Tablet 3 024 Active metoprolol succinate XL (TOPROL-XL) 25 mg 24 hr tabletIndicati ons:Coronary artery disease involving [place] coronary artery of [place] heart with other form of angina pectoris ([facility]-CMS) Take 1 Tablet by mouth 2 (two) times daily 180 Tablet 2 024 Active loratadine (CLARITIN) 10 mg tabletIndicati ons:Non-season al allergic rhinitis, unspecified trigger TOME DENNY TABLETA POR VIA ORAL TODOS LOS FRYE CUANDO SEA NECESARIO FOR ALLERGIES 90 Tablet 2 024 Active baclofen (LIORESAL) 10 mg tabletIndicati ons:Chronic midline low back pain without sciatica TAKE (12) TABLET BY MOUTH DAILY AT BEDTIME. 30 Tablet 2 024 Active MISCELLANEOUS MEDICAL SUPPLY MISC by miscellaneous route daily. OMRON automatic blood pressure monitor, disp1,lifetime need, dx labile BP, HTn 1 Each 025 Active gabapentin (NEURONTIN) 300 mg capsuleIndicat ions:Primary insomnia TAKE 1 CAPSULE BY MOUTH AT BEDTIME. 90 Capsule 1 025 Active candesartan (ATACAND) 16 mg tabletIndicati ons:Mixed headache,Hyper tension, essential, benign Take 1 Tablet by mouth nightly at bedtime 90 Tablet 3 025 Active ferrous sulfate 325 mg (65 mg iron) EC tabletIndicati ons:Mild anemia Take 1 Tablet by mouth once daily with breakfast 90 Tablet 1 025 Active ascorbic acid, vitamin C, (VITAMIN C) 250 mg tabletIndicati ons:Mild anemia Take 1 Tablet by mouth once daily with breakfast Take with the IRON tabs 90 Tablet 1 025 Active MISCELLANEOUS MEDICAL SUPPLY MISC by miscellaneous route daily 4 wheel rollator with seat, disp1, lifetime need, knee arthritis 1 Each 025 Active MISCELLANEOUS MEDICAL SUPPLY MISC by miscellaneous route daily SALONPAS, disp 90/month, dx low back pain 90 Each 11 025 Active amLODIPine (NORVASC) 2.5 mg tabletIndicati ons:Hypertensi on, essential, benign Take 1 Tablet by mouth once daily 90 Tablet 3 025 Active FLUoxetine (PROZAC) 20 mg capsuleIndicat ions:Primary insomnia TAKE 3 CAPSULES BY MOUTH DAILY IN THE MORNING FOR MMD/ANXIETY. 90 Capsule 025 Active MISCELLANEOUS MEDICAL SUPPLY MISC by miscellaneous route daily. SALONPAS, disp 90/month, dx low back pain 90 Each 11 023 2024 Discontinued(R eorder (E-Cancel Not Sent)) amLODIPine (NORVASC) 5 mg tabletIndicati ons:Hypertensi on, unspecified type TAKE 1 TABLET BY MOUTH DAILY. 90 Tablet 2 024 2024 Discontinued(R eorder (E-Cancel Not Sent)) FLUoxetine (PROZAC) 20 mg capsuleIndicat ions:Primary insomnia TAKE 3 CAPSULES BY MOUTH DAILY IN THE MORNING FOR MMD/ANXIETY. 90 Capsule 3 024 2024 Discontinued Active Problems Problem Noted Date Diagnosed Date Mixed headache 06/16/2024 Thoracic disc disease 01/26/2021 Right facial numbness 01/26/2021 01/26/2021 Mild anemia 01/13/2020 Functional constipation 11/10/2018 Hepatic cyst 08/2018, no follow up is needed Overview (07/02/2019): Result type: MRI Abdomen W+W/O Contrast Result date: August 29, 2018 10:55 EDT Result status: Auth (Verified) Result title: MRI Abdomen W+W/O Contrast Performed by: Carlos Shields MD on August 31, 2018 10:05 EDT Verified by: Carlos Shields MD on August 31, 2018 10:05 EDT Encounter info: [id number], [facility], One Time OP, 08/29/2018 - 08/29/2018 * Final Report * Reason For Exam LVIER LESION RESULT: MRI Abdomen W+W/O Contrast MRI Abdomen W+W/O Contrast CLINICAL INDICATION: Subcentimeter abnormality seen left lobe of liver on ultrasound examination 07/23/2018.. PRIOR EXAMS: No prior MRI.. TECHNIQUE: T1 fat saturation, in and out of phase, T2, T2 fat saturation, and DWI images. Coronal T2 images. Following intravenous administration of 17 cc Dotarem contrast, sequential T1 fat saturation images were obtained. FINDINGS: There is no pleural effusion. There is no pericardial effusion. LIVER: Diffuse fatty change. Normal morphology. A solitary 4 mm abnormality noted medial segment left lobe of liver. It is of low T1 signal and high T2 signal. It shows no enhancement. No other focal liver abnormality is seen. HEPATIC VEINS AND PORTAL VENOUS SYSTEM: The hepatic veins, portal veins, superior mesenteric vein, splenic vein are patent. GALLBLADDER: Normal including no gallstones. BILE DUCTS: No biliary dilatation. SPLEEN: Normal. PANCREAS: Normal. ADRENALS: Normal. RIGHT KIDNEY: Normal. LEFT KIDNEY: Normal. AORTA: Normal. LYMPH NODES: There is no adenopathy.. PERITONEUM, MESENTERY, AND RETROPERITONEUM: There is no ascites. BOWEL: There is no bowel dilatation. IMPRESSION: 1. Fatty liver. 2. Solitary left lobe abnormality seen measuring 4 mm and corresponding with the finding on ultrasound. MRI characteristics shown to be a cyst of no significance. 3. No focal worrisome abnormality seen. WSN: [id number] Signature Line Dictated By: Carlos Shields MD Dictated Date/Time: 08/31/18 10:05 a Reviewed By: Carlos Shields MD Signed By: Carlos Shields MD Signed Date/Time: 08/31/18 10:05 am Transcribed By: MARYSE Transcribed Date/Time: 08/31/18 9:44 am MRI Abdomen W+W/O Contrast This document has an image Primary insomnia 06/11/2018 History of echocardiogram 11/18/2016 02/03/2017 Overview (02/03/2017): Result type: Echocardiogram - Complete Result date: November 18, 2016 9:50 Result status: Modified Result title: Echo Complete Performed by: Joseph Chacko MD on November 18, 2016 9:50 Verified by: Joseph Chacko MD on November 18, 2016 9:50 Encounter info: [id number], [facility], One Time OP, 11/18/2016 - 11/18/2016 Contributor system: Anaplan * Final Report * Echo Complete-Doppler, Colorflow, M-Mode Transthoracic Echocardiography Report (TTE) Patient Demographics Patient Name PLACIDO FULLER Date of Study 11/18/2016 Corporate Gender Female Facility Race Ethnicity or Date of 1955 Height: 62 inches Age 61 year(s) Weight: 145 pounds Accession Number [id number] BSA: 1.67 m2 Room Number BMI: 26.52 kg/m2 Referring Physician Nayely VALLEJO Interpreting Joseph Chacko MD Physician Lock Installer Loyd Marquez RCS Indications Peripheral edema. Clinical History Hypertension. CAD. Hyperlipidemia. Hypercholesterolemia. Tobacco abuse NSTEMI Study Data Type of Study TTE procedure:Echo Complete-Doppler, Colorflow, M-Mode. Study Date11/18/2016 Start Time: 09:50 AM Study Location: 3300 Adult Echo Study Status: Echo lab Patient Status: Routine Technical Quality: Adequate Blood Pressure:110/57 mmHg EKG: Normal sinus rhythm HR: 63 bpm 2D Measurements LV Diastolic Dimension: 4.5 cm LV Systolic Dimension: 3.1 cm LV Septum Diastolic: 1 cm LV PW Diastolic: 1 cm AO Root Dimension: 2.7 cm LA Dimension: 3.2 cm LA ESV (BP):50 ml LVOT Stroke Volume: 62.66 ml LA ESV Index: 30 ml/m2 Stroke Volume Index37.52 ml/m2 LVOT: 2.1 cm Cardiac Index:2.37 l/min/m2 Doppler Measurements AV Peak Velocity: 133 cm/s MV Peak E-Wave: 49.9 cm/s AV Peak Gradient: 7.08 mmHg MV Peak A-Wave: 57.8 cm/s MV E/A Ratio: 0.86 LVOT VTI18.1 cm MV Deceleration Time: 405 msec Estimated RAP:3 mmHg E' Septal Velocity: 8.22 cm/s PV Peak Velocity: 79.1 cm/s E' Lateral Velocity: 6.91 cm/s PV Peak Gradient: 2.5 mmHg E/Med E':6.75095 E/Lat E':7.673916 Cardiac Anatomy Left Ventricle/Interventricular Septum The left ventricular size is normal. There is mild concentric left ventricular hypertrophy. Normal LV systolic function. Ejection fraction is 55-60%. There are no regional wall motion abnormalities. Normal diastolic function. Left Atrium/Interatrial Septum The left atrium is normal in size. Aortic Valve The aortic valve is trileaflet and normal in structure and function. There is no aortic stenosis or insufficiency. Mitral Valve There is mild mitral annular calcification. There is trace mitral regurgitation. There is no significant mitral stenosis. Aorta The aortic root and ascending aorta are normal in size. There is mild calcification in the ascending aorta. Right Ventricle The right ventricle is normal in size. Right ventricular systolic function appears preserved. Right Atrium The right atrium is normal in size. Pulmonic Valve There is trace pulmonic regurgitation. Tricuspid Valve There is no significant tricuspid valve regurgitation. Pumonary Artery The pulmonary artery systolic pressure estimation is within normal limits. Venous Structures There is normal pulmonary venous flow. The inferior vena cava size is normal with normal inspiratory collapse. The central venous pressure estimation is 3 mmHg. Pericardium/Extracardiac There is no pericardial effusion. Summary 1. The left ventricular size is normal. There is mild concentric left ventricular hypertrophy. Normal LV systolic function. Ejection fraction is 55-60%. There are no regional wall motion abnormalities. Normal diastolic function. 2. The right ventricle is normal in size. Right ventricular systolic function appears preserved. 3. Biatrial size is normal. 4. There is no hemodynamically significant valvular disease. Comparison Comparison is made to the study of May 04, 2013. Left ventricular systolic function is unchanged since previous study. Signature Echo Complete This document has an image Pulmonary nodule 06/2017, repeat 1 year 5 Overview (07/15/2016): Result type: CT Angio Chest Result date: 08 June 2014 23:17 Result status: Auth (Verified) Result title: CT Angio Chest Performed by: Richie Barnett MD on 08 June 2014 23:26 Verified by: Richie Barnett MD on 08 June 2014 23:26 Encounter info: [id number], [facility], [facility], 06/08/2014 - 06/10/2014 * Final Report * Reason For Exam Abdominal Pain;Other: RESULT: CT Angio Chest CT of the chest with CT pulmonary angiography dated June 08, 2014. History: Pain. Findings: CT imaging was performed with multislice acquisition from the thoracic inlet to the adrenal glands during to bolus infusion of 120 cc of Optiray-320 nonionic contrast material. The second bolus was necessary because the first bolus was missed. Hilar and mediastinal windows show no evidence of mass or lymphadenopathy. The visualized portions of the thyroid gland are unremarkable. No pleural or pericardial effusion is identified. The pulmonary arteries are normal in size without evidence of embolism. The thoracic aorta is normal in size without evidence of aneurysm or dissection. Pulmonary parenchymal windows show a 3 mm nodule in the anterior segment of the right lower lobe on image 27 of series 45. In addition, in the superior segment of the left lower lobe there is a faint 10 mm groundglass nodular opacity. The trachea and main bronchi are patent. Visualized abdominal viscera are unremarkable. Mild degenerative changes are seen in the spine. Impression: No evidence of pulmonary embolism. Groundglass nodular infiltrate in the superior segment of the left lower lobe. This may be infectious or inflammatory in etiology. I cannot completely exclude other etiologies I would suggest a followup chest CT to ensure this completely clears. A 3 mm nodule in the anterior segment of the right lower lobe is of less suspicion. If the patient is not high risk for lung cancer no additional followup for this would be recommended. If the patient is high risk for lung cancer a 12 month followup it would be recommended. Examination [id number]. Thank you for allowing me to participate in the care of this patient. Signature Line Dictated By: Richie Barnett MD Dictated Date/Time: 06/08/14 11:26 p Reviewed By: Richie Barnett MD Signed By: Richie Barnett MD Signed Date/Time: 06/08/14 11:26 pm Transcribed By: MARYSE Transcribed Date/Time: 06/08/14 11:[address] Angio Chest This document has an image Arthritis of knee, right on x-ray 10/22/2013 09/0 08/2013 CAD (coronary artery disease) s/p stent 03/30/20 13 Overview (01/20/2015): Result type: Cardiology Correspondence Result date: 18 November 2014 11:51 Result status: Preliminary Result title: Patient Letter Performed by: Imelda Garcia MD on 18 November 2014 11:51 Encounter info: [id number], [facility], Office Visit, 11/18/2014 - 11/25/2014 Contributor system: NUANCE * Preliminary Report * Patient Letter (Unverified) PATIENT LETTER DATE:11/18/[place] [address] Dear Debbie Diann was seen in cardiac clinic for follow-up with a track service person. As you know, she is a 59-year-old woman with coronary artery disease, status post NSTEMI in 02/2011, cardiac catheterization revealed 2-vessel coronary artery disease with 90% of proximal left circumflex lesion and 50% to 60% mid RCA tubular lesion over 15 mm long. She received 2 overlapping NUNU to the left circumflex. Her LVEF was preserved. She also has a history of hypertension, hyperlipidemia and tobacco use, which has been discontinued more than 2 years ago. There was one followup nuclear stress test in 2012 showing no evidence of perfusion defect, LVEF of 71%. She stated that she has been doing fine, denying any recurrence of chest pain or chest pressure, shortness of breath, palpitations, orthopnea or PND. The only complaint from her is back pain, which caused all body curve including the chest. She was told to have pinched nerves. Current Cardiac Medications: Aspirin 81 mg daily, atorvastatin 80 mg daily, lisinopril/hydrochlorothiazide 20/12.5 mg daily, metoprolol ER 100 mg daily. Physical Examination: Weight 157 pounds, blood pressure 130/70 mmHg, pulse is 67 and regular. Oxygen sat 98% on room air. She was in no apparent distress. There was no JVD or carotid bruits. Lungs were clear, no crackles or wheezing. Heart revealed a regular rate and rhythm, normal S1 and S2. No murmur or gallop. Abdomen: Soft, nontender. Extremities: No leg edema. Laboratory Study: There was only a lipid panel in 2013, showing total cholesterol greater than 300 with high non-HDL. Impression and Plan: Status post NSTEMI in 2010, had 2-vessel coronary artery disease, received 2 NUNU to the left circumflex, with 50% to 60% mid RCA lesion, left. Post-procedure, she denies any recurrence of symptoms and nuclear stress test in 2013 showing normal myocardial perfusion and normal EF. Currently, she has no symptoms. Therefore, I would continue her on current medication and follow up on a yearly basis. I also encouraged her to continue smoking cessation. Of note, she does not have follow-up lipid panel since 2012 in our [facility] recording. She is instructed to check up with you. Thank you for allowing me to partake in her care. Sincerely, Dictated by: Imelda Garcia M.D. Signing Clinician: Imelda Garcia M.D. Dictated: 11/18/2014 11:51:42 Transcribed: 11/18/2014 14:19:27 Transcribed by: ALLAN DocID: [id number] PRELIMINARY REPORT UNLESS MANUALLY/ELECTRONICALLY SIGNED CC:Debbie Polk [facility] [address] [place] [address], [id number] History of tobacco use, quit 201103/30/2013 Hypertension, essential, benign 03/30/2013 Hyperlipemia, mixed 03/30/2013 H/O colonoscopy 09/201508/13/2007 Overview (02/01/2016): Result type: Histology Result date: 19 Sep 2015 13:06 Result status: Auth (Verified) Result title: Performed by: Jarrell Amos MD on 19 Sep 2015 13:06 Verified by: Jarrell Amos MD on 19 Sep 2015 13:06 En[facility]: [id number][facility], 09/19/2015 - 09/19/2015 Contributor system: Transphorm * Final Report * Patient Name: PLACIDO FULLER Lab Patient : 1955 (Age: 60) Collection Date: 09/19/2015 Accession Date: 09/19/2015 Sign Out Date: 09/20/2015 Tissue Source: 1: SMALL BOWEL BIOPSY 2: GASTRIC BX 3: GASTRIC POLYP 4: RECTAL POLYP Final Diagnosis: 1. Small bowel biopsy: - Small bowel mucosa with focal surface gastric antral metaplasia (villous architecture otherwise normal). 2. Gastric biopsy: - Gastric mucosa, body/fundic type, without pathologic changes. 3. Gastric polyp biopsy: - Hyperplastic polyp of body/fundic mucosa. 4. Rectum, polyp, polypectomy: - Tubular adenoma. Primary Pathologist:Jarrell Amos M.D. electronically signed out by: Jarrell Amos M.D. / LEO Clinical History: Anemia, GERD, EGD-polyps, gastritis; colonoscopy-diverticulosis, rectal polyp Gross Description: Part 1. Labeled small bowel biopsy . Received in formalin are multiple portions of soft, [place] tissue ranging from 0.1 cm to 0.3 x 0.2 x 0.1 cm. The specimens are submitted in toto. 1 and 2- 3 and 4 pieces respectively, ? 3 , eoe. (VC)* Part 2. Labeled gastric biopsy . Received in formalin are 5 portions of soft, [place] tissue ranging from 0.3 x 0.2 x 0.1 cm to 0.6 x 0.2 x 0.1 cm. The specimens are submitted in toto. 1--5 pieces, ? 3 , eoe. (VC)* Part 3. Labeled gastric polyp . Received in formalin are 3 portions of soft, [place] tissue ranging from 0.2 x 0.1 x 0.1 cm to 0.4 x 0.2 x 0.1 cm. The specimens are submitted in toto. 1--3 pieces, ? 3 , eoe. (VC)* Part 4. Labeled rectal polyp . Received in formalin are 2 portions of [place], polypoid tissue measuring 0.2 x 0.1 x 0.1 cm and 0.5 x 0.3 x 0.1 cm. The specimens are submitted in toto. 1--2 pieces, ? 3 , eoe. (VC)* Phone #: [phone], On-Call Pathologist: [id number] Gastritis Overview (01/26/2021): Result type: Histology Result date: 12 August 2006 8:00 Result status: Auth (Verified) Result title: Performed by: [id number] -UNKNOWN, PERSONNEL on 12 August 2006 8:00 Verified by: [id number] -UNKNOWN, PERSONNEL on 12 August 2006 8:00 Encounter info: [id number], [facility], 08/12/2006 - 08/12/2006 Contributor system: Transphorm * Final Report * Patient Name: PLACIDO FULLER Lab Accesssion #: [id number] Patient : 1955 (Age: 51) Collection Date: 08/12/2006 Accession Date: 08/12/2006 Sign Out Date: 08/13/2006 Tissue Source: 1: ANTRUM BODY Final Diagnosis: Stomach, antrum/body, biopsies: - Gastric mucosa, antral and fundic types, demonstrating chronic H. pylori- associated gastritis with mild activity. - Few H. Pylori bacteria seen by immunohistochemistry. Comment: These immunohistochemistry and/or in-situ hybridization tests were developed and their performance characteristics determined by the immunohistochemistry and in- situ hybridization laboratories at [facility]. They may not have been cleared or approved by the U.S. Food and Drug Administration (FDA). However, the FDA has determined that such clearance or approval is not necessary. These tests are used for clinical purposes. They should not be regarded as investigational or for research. Gross Description: Labelled ? antrum/body? . Received in formalin are four pieces of soft [place] tissue that range in size from 0.2 x 0.2 x 0.2 cm to 0.4 x 0.1 x 0.1 cm. The specimens are submitted in toto. 1 - 4 pieces, x3, plus H. Pylori, eoe (BENNY) Primary Pathologist: Karen Potts M.D. Phone #: [phone], On-Call Pathologist: [id number] Chronic midline low back pain without sciatica Encounters Date Type Department Care Team Description 07/13/2024 10:00 AM EDT Office Visit [address] [phone] Debbie Polk PA-C Hypotension, unspecified hypotension type (Primary Dx); Mild anemia; Hypertension, essential, benign; Hyperlipemia, mixed; Mixed headache 07/12/2024 Interim Notes [address] [phone] Bess Cisneros MA 07/12/2024 Interim Notes [address] [phone] Bess Cisneros MA 06/16/2024 11:00 AM EST Office Visit [address] [phone] Debbie Polk PA-C Mixed headache (Primary Dx); Coronary artery disease involving ch[place] coronary artery of [place] heart with other form of angina pectoris (HCC-CMS); Hyperlipemia, mixed; Mild anemia; Encounter for screening mammogram for malignant neoplasm of breast; Mild vitamin D deficiency; Hypertension, essential, benign 05/31/2024 Interim Notes [address] [phone] Bess Cisneros ID from Last 3 Months Immunizations Name Administration Dates Next Due Flu, High Dose, 65y+, Fluzone High Dose 01/18/20 23 Flu, Preservative Free 02/03/2017 Influenza (FLUZONE), high-dose, trivalent, PF Moderna COVID-19 Vaccine, re d cap blue label, 12+ Primary Series 08/19/2020,07/21/2020 PFIZER COVID VACCINE, PURPLE CAP, 12+ 05/01/2021 PNEUMOCOCCAL CONJUGATE PCV 20 (Prevnar) 01/18/20 23 PNEUMOCOCCAL POLYSACCHARIDE PPV23 01/13/2016 Td(adult),2 Lf tetanus toxoid,preservative free 02/03/1996 ZOSTER VACCINE, RECOMBINANT (SHINGRIX) 2 Social History Tobacco Use Types Packs/Day Years [...] Orientation Straight 04/23/2017 5: 41 PM PST Last Filed Vital Signs Vital Sign Reading Time Taken Comments Blood Pressure 130/62 07/13/2024 10:10 AM EDT Pulse 96 07/13/2024 10:10 AM EDT Temperature 36.8 ??C (98.2 ??F) 07/13/2024 10:10 AM E DT Respiratory Rate 16 07/13/2024 10:10 AM EDT Oxygen Saturation 94% 07/13/2024 10:10 AM EDT Inhaled Oxygen Concentration - - Weight 60.3 kg (133 lb) 07/13/2024 10:10 AM EDT Height 157.5 cm (5' 2 ) 07/13/2024 10:10 AM EDT Body Mass Index 24.33 07/13/2024 10:10 AM EDT Plan of Treatment Upcoming Encounters Date Type Department Care Team (Late st Contact Info) Description 09/29/2024 10:00 AM EDT Office Visit [facility] [address] [place] [phone] Debbie Polk PA-C [address] [place] [phone] Health Maintenance Due Date Last Done Comments CT Colonography 1998 Fecal DNA 1998 Flexible Sigmoidoscopy 1998 FIT/gFOBT 07/09/2015 07/08/2014 (Decl ined), 05/11/2013 (Declined) Imm-DTaP/Tdap/Td (1 - Tdap) 10/13/2024 02/03/1996 Postponed from 02/04/1996 (Patient postponement) Imm-Zoster, Recombinant (2 of 2) 10/13/2024 06/12/2021 Postponed from 08/07/2021 (Patient postponement) Lipid Screening 01/26/2025 01/27/2024, 07/03, 01/17/2023, Additional history exists Medicare Annual Wellness Visit 01/26/2025 01/27/2024, 01/17/2023, 06/12/2021, Additional history exists Breast Cancer Screening (Mammogram) 05/15/2025 05/15/2023, 09/20/2020, 02/02/2019, Additional history exists Diabetes Screening 06/16/2025 06/16/2024, 0 05/13/2024, 04/23/2024, Additional history exists Falls Prevention 07/13/2025 07/13/2024 (Man aged by Outside Provider) Tobacco Screening 07/13/2025 07/13/2024 Colonoscopy 07/05/2027 07/04/2022, 09/19/2015 Colorectal Cancer Screening 07/05/2027 Hepatitis C Screening Completed 12/09/2018 Dci-KNZOQ-14 Discontinued 05/01/2021, 08/03, 07/21/2020 Imm-Influenza Discontinued 01/17/2023, 07/03, 02/03/2017, Additional history exists Imm-Pneumococcal 65+ Completed 01/17/2023, 01/13/20 16 Bone Density Screening Completed 05/15/2023 Alcohol and Drug Screen Completed 06/16/19 25, 10/29/2023, 10/02/2022, Additional history exists Depression Annual Screen Completed 025, 01/20/2015 (Managed by Outside Provider), 01/06/2014 (Managed by Outside Provider) Goals Goal Patient Goal Type Associated Problems Recent Progress Patient-Stated? Author Blood Pressure < 130/80 Blood Pressure Hypertension, essential, benign 130/62( 025 10:10 AM EDT) Brandin Carbajal, PharmD Procedures Procedure Name Priority Date/Time Associated Diagnosis Comments 25 HYDROXY INCLUDES FRACTIONS IF PERFORMED Routine 06/16/2024 11:21 AM EST Coronary artery disease involving [place] coronary artery of [place] heart with other form of angina pectoris (HCC-CMS) Hyperlipemia, mixed Mild anemia Encounter for screening mammogram for malignant neoplasm of breast Mixed headache Mild vitamin D deficiency ASSAY OF MAGNESIUM Routine 06/16/2024 11 :21 AM EST Coronary artery disease involving [place] coronary artery of [place] heart with other form of angina pectoris (HCC-CMS) Hyperlipemia, mixed Mild anemia Encounter for screening mammogram for malignant neoplasm of breast Mixed headache Mild vitamin D deficiency VITAMIN B12 & FOLATE Routine 06/16/2024 11:21 AM EST Coronary artery disease involving [place] coronary artery of [place] heart with other form of angina pectoris (HCC-CMS) Hyperlipemia, mixed Mild anemia Encounter for screening mammogram for malignant neoplasm of breast Mixed headache Mild vitamin D deficiency SEDIMENTATION RATE RBC AUTOMATED Routine 06/16/2024 11:21 AM EST Coronary artery disease involving [place] coronary artery of [place] heart with other form of angina pectoris (HCC-CMS) Hyperlipemia, mixed Mild anemia Encounter for screening mammogram for malignant neoplasm of breast Mixed headache Mild vitamin D deficiency TSH W/RFLX FREE T4 Routine 06/16/2024 11 :21 AM EST Coronary artery disease involving [place] coronary artery of [place] heart with other form of angina pectoris (HCC-CMS) Hyperlipemia, mixed Mild anemia Encounter for screening mammogram for malignant neoplasm of breast Mixed headache Mild vitamin D deficiency COMPREHENSIVE METABOLIC PANEL Routine 06/16/2024 11:21 AM EST Coronary artery disease involving [place] coronary artery of [place] heart with other form of angina pectoris (HCC-CMS) Hyperlipemia, mixed Mild anemia Encounter for screening mammogram for malignant neoplasm of breast Mixed headache Mild vitamin D deficiency BLOOD COUNT COMPLETE AUTO&AUTO DIFRNTL WBC Routine 06/16/2024 11:21 AM EST Coronary artery disease involving [place] coronary artery of [place] heart with other form of angina pectoris (HCC-CMS) Hyperlipemia, mixed Mild anemia Encounter for screening mammogram for malignant neoplasm of breast Mixed headache Mild vitamin D deficiency COMPREHENSIVE METABOLIC PANEL Routine 05/13/2024 12:20 PM EST Hyponatremia COMPREHENSIVE METABOLIC PANEL Routine 04/23/2024 4:01 PM EST Hyponatremia LIPID PANEL Routine 01/27/2024 11:53 AM EDT Routine general medical examination at a health care facility Mild anemia Hyperlipemia, mixed Hypertension, essential, benign Dizziness DXA BONE DENSITY STUDY 1/> SITES AXIAL SKEL Routine 05/15/2023 3:00 AM EST Osteoporosis screening MAMMO DIGITAL SCREEN YOSEF W CAD 3D Routine 05/15/2023 3:00 AM EST Breast cancer screening by mammogram HISTORIC COLONOSCOPY 07/04/2022 3:00 AM EST HEPATITIS A,B,C PANEL Routine 12/09/2018 11:11 AM EDT Pre-op exam from Last 3 Months or Most Recently Relevant to Health Maintenance Results * TSH W/RFLX FREE T4 (06/16/2024 11:21 AM EST) TSH W/REFLEX TO FT4 1.65 0.40 - 4.50 mIU/L [facility] Blood Blood / Unknown 06/16/2024 1 1:21 AM EST 06/16/2024 11:22 AM EST us Debbie Polk PA-C LAB - BLOOD DRAW Final Resul t [facility] [address] [place] [phone], [facility] [address] [place] [phone] * VITAMIN B12 & FOLATE (06/16/2024 11:21 AM EST) Pathologist [facility] VITAMIN B12 357 200 - 1,100 pg/mL [facility] Comment: Please Note: Although the reference range for vitamin B12 is 200-1100 pg/mL, it has been reported that between 5 and 10% of patients with values between 200 and 400 pg/mL may experience neuropsychiatric and hematologic abnormalities due to occult B12 deficiency; less than 1% of patients with values above 400 pg/mL will have symptoms. FOLATE, SERUM 14.3 5.5 ng/mL [facility] Comment: ? Reference Range ? Low: ? <3.4 ? Borderline: ?3.4-5.4 ? Normal: ?>5.4 Blood Blood / Unknown 06/16/2024 1 1:21 AM EST 06/16/2024 11:22 AM EST Debbie Polk PA-C LAB - BLOOD DRAW Final Resul t Performing Organization Address [facility]/ZIP Co de Phone Number [employer] [address] [address], [employer] [address] [phone] * SEDIMENTATION RATE RBC AUTOMATED (06/16/2024 11:21 AM EST) SED RATE BY MODIFIED WESTERGREN 17 0 - 30 mm/h [employer] [facility] Blood Blood / Unknown 06/16/2024 1 1:21 AM EST 06/16/2024 11:22 AM EST Debbie Polk PA-C LAB - BLOOD DRAW Final Resul t Performing Organization Address [facility] Co de Phone Number [employer] [address] [address], [employer] [address] [phone] * (ABNORMAL) BLOOD COUNT COMPLETE AUTO&AUTO DIFRNTL WBC (06/16/2024 11:21 AM EST) WHITE BLOOD CELL COUNT 6.1 3.8 - 10.8 Thousand/ uL [employer] [facility] RED BLOOD CELL COUNT 3.46(L) 3.80 - 5.10 Million/u L [employer] [facility] HEMOGLOBIN 10.9(L) 11.7 - 15.5 g/dL [employer] [facility] HEMATOCRIT 32.8(L) 35.0 - 45.0 % [employer] [facility] MCV 94.8 80.0 - 100.0 fL [facility] MCH 31.5 27.0 - 33.0 pg [employer] [facility] MCHC 33.2 32.0 - 36.0 g/dL [employer] [facility] Comment: For adults, a slight decrease in the calculated MCHC value (in the range of 30 to 32 g/dL) is most likely not clinically significant; however, it should be interpreted with caution in correlation with other red cell parameters and the patient's clinical condition. RDW 12.9 11.0 - 15.0 % [facility] PLATELET COUNT 244 140 - 400 Thousand/ uL [facility] MPV 10.7 7.5 - 12.5 fL [facility] ABSOLUTE NEUTROPHILS 4,502 1,500 - 7,800 cells/uL [facility] ABSOLUTE LYMPHOCYTES 1,141 850 - 3,900 cells/uL [facility] ABSOLUTE MONOCYTES 354 200 - 950 cells/uL [facility] ABSOLUTE EOSINOPHILS 61 15 - 500 cells/uL [facility] ABSOLUTE BASOPHILS 43 0 - 200 cells/uL [facility] NEUTROPHILS PCT 73.8 % [employer] LYMPHOCYTES 18.7 % [employer] [facility] MONOCYTES 5.8 % [facility] [employer] [facility] EOSINOPHILS 1.0 % [employer] [facility] BASOPHILS 0.7 % [employer] [facility] Blood Blood / Unknown 06/16/2024 1 1:21 AM EST 06/16/2024 11:22 AM EST Debbie Polk PA-C LAB - BLOOD DRAW Edited Resu lt - Final Performing Organization Address City/[facility]/ZIP Co de Phone Number [facility] [address] [place] [phone], [facility] [address] [phone] * ASSAY OF MAGNESIUM (06/16/2024 11:21 AM EST) MAGNESIUM 1.7 1.5 - 2.5 mg/dL [employer] [facility] Blood Blood / Unknown 06/16/2024 1 1:21 AM EST 06/16/2024 11:22 AM EST us Debbie Polk PA-C LAB - BLOOD DRAW Edited Resu lt - Final Performing Organization Address City/[facility]/ZIP Co de Phone Number [employer] [address] [address], [employer] [address] [phone] * 25 HYDROXY INCLUDES FRACTIONS IF PERFORMED (06/16/2024 11:21 AM EST) Pathologist [facility] VITAMIN D, 25-OH, TOTAL 36 30 - 100 ng/mL [facility] Comment: Vitamin D Status ? 25-OH Vitamin D: Deficiency: ?<20 ng/mL Insufficiency: ? 20 - 29 ng/mL Optimal: ? > or = 30 ng/mL For 25-OH Vitamin D testing on patients on D2-supplementation and patients for whom quantitation of D2 and D3 fractions is required, the QuestAssureD(TM) 25-OH VIT D, (D2,D3), LC/MS/MS is recommended: order code [id number] (patients >2yrs). COMMENT [employer] Blood Blood / Unknown 06/16/2024 1 1:21 AM EST 06/16/2024 11:22 AM EST Narrative [facility] - 06/17/2024 4:51 AM EST See Note 1 Note 1 For additional information, please refer to http://education.Click Bus/faq/VCM381 (This link is being provided for informational/ educational purposes only.) Debbie Polk PA-C LAB - BLOOD DRAW Final Resul t Performing Organization Address City/State/[facility] Co de Phone Number [facility] [address] [place] [phone], [facility] [address] [place] [phone] * (ABNORMAL) COMPREHENSIVE METABOLIC PANEL (06/16/2024 11:21 AM EST) Only the most recent of3 resultswithin the time period is included. Pathologist [facility] GLUCOSE 100(H) 65 - 99 mg/dL [facility] Comment: ?Fasting reference interval For someone without known diabetes, a glucose value between 100 and 125 mg/dL is consistent with prediabetes and should be confirmed with a follow-up test. UREA NITROGEN (BUN) 18 7 - 25 mg/dL [employer] [facility] CREATININE (blood) 0.90 0.60 - 1.00 mg/dL [employer] [facility] EGFR 68 > OR = 60 mL/min/1. 73m2 [employer] [facility] BUN/CREATININE RATIO SEE NOTE: [employer] [facility] Comment: ?? Not Reported: BUN and Creatinine are within ?? reference range. ? SODIUM 137 135 - 146 mmol/L [employer] [facility] POTASSIUM 4.0 3.5 - 5.3 mmol/L [employer] [facility] CHLORIDE 98 98 - 110 mmol/L [employer] [facility] CARBON DIOXIDE 30 20 - 32 mmol/L [employer] [facility] CALCIUM 9.5 8.6 - 10.4 mg/dL [employer] [facility] PROTEIN, TOTAL 6.7 6.1 - 8.1 g/dL [employer] [facility] ALBUMIN 4.6 3.6 - 5.1 g/dL [employer] [facility] GLOBULIN 2.1 1.9 - 3.7 g/dL (calc) [employer] [facility] ALBUMIN/GLOBULI N RATIO 2.2 1.0 - 2.5 (calc) [employer] [facility] BILIRUBIN, TOTAL 0.4 0.2 - 1.2 mg/dL [employer] [facility] ALKALINE PHOSPHATASE 80 37 - 153 U/L [employer] [facility] AST 21 10 - 35 U/L [employer] [facility] ALT 10 6 - 29 U/L [employer] [facility] Blood Blood / Unknown 06/16/2024 1 1:21 AM EST 06/16/2024 11:22 AM EST us Debbie Polk PA-C LAB - BLOOD DRAW Edited Resu lt - Final [employer] [facility] [address] [phone], [employer] [facility] [address] [place] [address] * (ABNORMAL) LIPID PANEL (01/27/2024 11:53 AM EDT) CHOLESTEROL, TOTAL 183 <200 mg/dL [employer] [facility] HDL CHOLESTEROL 55 > OR = 50 mg/dL [employer] [facility] TRIGLYCERIDES 142 <150 mg/dL [employer] [facility] LDL-CHOLESTEROL 104(H) 99 mg/dL (calc) [facility] Comment: Reference range: <100 Desirable range <100 mg/dL for primary prevention; ?? <70 mg/dL for patients with CHD or diabetic patients with > or = 2 CHD risk factors. LDL-C is now calculated using the Vasyl calculation, which is a validated novel method providing better accuracy than the Friedewald equation in the estimation of LDL-C. Farhan SS et al. LYN. 2013;310(19): 6915-2730 (http://education.Click Bus/faq/EJJ893) CHOL/HDLC RATIO 3.3 <5.0 (calc) [facility] NON-HDL CHOLESTEROL 128 <130 mg/dL (calc) [facility] Comment: For patients with diabetes plus 1 major ASCVD risk factor, treating to a non-HDL-C goal of <100 mg/dL (LDL-C of <70 mg/dL) is considered a therapeutic option. Blood Blood / Unknown 01/27/2024 1 1:53 AM EDT 01/27/2024 11:54 AM EDT Narrative [facility] - 01/29/2024 7:39 PM EDT FASTING:NO Debbie Polk PA-C LAB - BLOOD DRAW Final Resul t Performing Organization Address City/State/[facility] Co de Phone Number [facility] [address] [place] [phone], [facility] [address] [place] [phone] * MAMMO DIGITAL SCREEN YOSEF W CAD 3D (05/15/2023 3:00 AM EST) 05/15/2023 3:00 AM EST us Debbie Polk PA-C IMG MAMMO Edited Resul t - Final * DXA BONE DENSITY STUDY 1/> SITES AXIAL SKEL (05/15/2023 3:00 AM EST) 05/15/2023 3:00 AM EST us Debbie Polk PA-C IMG DXA Final Result * HISTORIC COLONOSCOPY (07/04/2022 3:00 AM EST) 07/04/2022 3:00 AM EST Debbie Polk PA-C PROCEDURES Edited Resul t - Final * (ABNORMAL) HEPATITIS A,B,C PANEL (12/09/2018 11:11 AM EDT) HEPATITIS B SURFACE ANTIGEN NEGATIVE NEGATIVE [facility] Comment: Over the counter supplements containing high doses of biotin may interfere with this assay. ??If interference is suspected, patients shoud be retested after refraining from biotin supplements for 72 hours. HEPATITIS B SURFACE ANTIBODY NEGATIVE NEGATIVE [facility] HEPATITIS C VIRUS DIAGNOSTIC NEGATIVE NEGATIVE [facility] HEPATITIS A ANTIBODY TOTAL POSITIVE(A) NEGATIVE [facility] Comment: Over the counter supplements containing high doses of biotin may interfere with this assay. ??If interference is suspected, patients shoud be retested after refraining from biotin supplements for 72 hours. HEPATITIS B CORE ANTIBODY NEGATIVE NEGATIVE [facility] Blood specimen (specimen) Blood / Unknown 12/09/2018 11:11 AM EDT 12/09/2018 11:15 AM EDT Narrative [facility] - 12/09/2018 4:05 PM EDT [employer], [place] [address] Gis Manager - Candice Holden [place] [id number] ORD# [id number] Debbie Polk PA-C LAB - BLOOD DRAW Edited Resu lt - Final [facility] [place] [address], from Last 3 Months or Most Recently Relevant to Health Maintenance Insurance [facility] Member Subscriber Plan / Payer (Ef fective 2018-Present) Name:Placido Roberts Relation to Subscriber:Self Name:Placido Roberts Payer ID:[id number] Group ID:Not on file Type:Indemnity Address: [facility] [address] [id number] Care Teams Cheese Cook Relationship Specialty Start Date End Date Debbie Polk PA-C [address] [place] [phone] PCP - General 02/12/13
--- OUTSIDE RECORDS SUMMARY | 2024-07-22 10:31 | XMS_ITS | Encounter Summary ---
Author Organization [facility] Address [address] [place] [address] Care Team Providers Care Ocular Care Technician Name Role Phone Debbie Polk PA-C Primary Care Provider + [phone] Reason for Visit * Reason Comments Lab Follow-Up Encounter Details Date Type Department Care Team (Late st Contact Info) Description 07/13/2024 10:00 AM EDT Office Visit [facility] [address] [place] [phone] Debbie Polk PA-C [address] [place] [phone] Hypotension, unspecified hypotension type (Primary Dx); Mild anemia; Hypertension, essential, benign; Hyperlipemia, mixed; Mixed headache Social History Tobacco Use Types Packs/Day Years [...] Mass Index 24.33 07/13/2024 10:10 AM EDT documented in this encounter Progress Notes * Debbie Polk PA-C - 07/13/2024 1:06 PM EDT S: Subjective Chief Complaint: Follow-up for hypertension History of Present Illness: Latricia Fernandes is a 69 year old female who presents for follow up on chronic conditions and for medication management. Reports ongoing LOW BLOOD PRESSURE, diastolic 40-60s Has a BP monitor from home. Review of Systems: General: Denies fatigue or weight changes. Cardiovascular: Denies chest pain, palpitations, or edema. Respiratory: Denies shortness of breath or cough. Gastrointestinal: Denies nausea, vomiting, or changes in bowel habits. Endocrine: No new polyuria, polydipsia, or polyphagia. Neurological: No headaches, dizziness, or numbness/tingling in extremities. Musculoskeletal: Denies joint pain or stiffness. Integumentary: Denies new skin changes or ulcers. Foot Exam Specific: Denies any foot pain, numbness, or sores. 06/16/2024 10:57 AM Little interest or pleasure in doing things Not at all Feeling down, depressed or hopeless [include irritable if under 18] Not at all Trouble falling or staying asleep, or sleeping too much Not at all Feeling tired or having little energy Not at all Poor appetite or overeating Not at all Feeling bad about yourself - or that you are a failure or have let yourself or your family down Notat all Trouble concentrating on things like school work, reading or watching TV? Not at all Moving or speaking so slowly that other people could have noticed? Or the opposite - being so fidgety or restless that you have been moving around a lot more than usual Not at all Thoughts you would be better off or of hurting yourself in some way Not at all If you checked off any problems, how difficult have these problems made it for you to do your work,take care of things at home, or get along with other people? Not difficult at all PHQ-9 Total Score (Auto Calculated) 0 Depression Severity: None-minimal O: Objective Vital Signs: Visit Vitals BP 130/62 (BP Site: Right Arm, BP Position: Sitting, BP Cuff Size: Regular Adult) Pulse 96 Temp 98.2 ??F (36.8 ??C) (Oral) Ht 5' 2 (1.575 m) Wt 133 lb (60.3 kg) SpO2 94% BMI 24.33 kg/m?? Vitals: 07/13/24 1010 Height: 5' 2 (1.575 m) Vitals: 07/13/24 1010 Weight: 133 lb (60.3 kg) General: Well-nourished, well-developed male in no acute distress. Cardiovascular: Regular rate and rhythm, no murmurs, gallops, or rubs. No peripheral edema. Respiratory: Clear to auscultation bilaterally. Abdomen: Soft, non-tender, non-distended. Normal bowel sounds. Extremities: No cyanosis, clubbing, or edema. Neurological: Alert and oriented x3, cranial nerves II-XII intact. Integumentary: Skin warm and dry, no rashes or lesions. A: Assessment I95.9 Hypotension, unspecified hypotension type (primary encounter diagnosis)--decrease dose of amlodipine from 5 to 2.5, cont to monitor D64.9 Mild anemia Plan : BLOOD COUNT COMPLETE AUTO&AUTO DIFRNTL WBC IRON, TIBC, FERRITIN PANEL VITAMIN B12 & FOLATE LACTATE DEHYDROGENASE LDH I10 Hypertension, essential, benign Plan : BLOOD COUNT COMPLETE AUTO&AUTO DIFRNTL WBC IRON, TIBC, FERRITIN PANEL VITAMIN B12 & FOLATE LACTATE DEHYDROGENASE LDH AMLODIPINE 2.5 MG TABLET - Take 1 Tablet by mouth once daily E78.2 Hyperlipemia, mixed Plan : BLOOD COUNT COMPLETE AUTO&AUTO DIFRNTL WBC IRON, TIBC, FERRITIN PANEL VITAMIN B12 & FOLATE LACTATE DEHYDROGENASE LDH R51.9 Mixed headache--cont to monitor PLAN: Continue current medications as Rx, encouraged continued compliance. 2. Encourage continued adherence to dietary and exercise regimen. 3. Schedule follow-up in 3 months for routine monitoring. Follow-up: Return in 3 months for routine follow-up, sooner if symptoms develop. Lifestyle measures:BMI follow up plan: The patient was counseled regarding nutrition and physical activity. Depression screening:DEPRESSION FU PROVIDED ([facility]-2): Counseling / education in visit There are no preventive care reminders to display for this patient. documented in this encounter Miscellaneous Notes * Patient Instructions - Debbie Polk PA-C - 07/13/2024 10:00 AM EDT If you are not able to keep your appointment please call 24-48 hours before your appointment to cancel or reschedule. documented in this encounter Plan of Treatment Upcoming Encounters Date Type Department Care Team (Late st Contact Info) Description 09/29/2024 10:00 AM EDT Office Visit [facility] [address] [place] [phone] Debbie Polk PA-C [address] [place] [phone] Scheduled Orders Name Type Priority Associated Diagnoses Orde r Schedule BLOOD COUNT COMPLETE AUTO&AUTO DIFRNTL WBC Lab Routine Mild anemia Hypertension, essential, benign Hyperlipemia, mixed Ordered: 07/13/2024 IRON, TIBC, FERRITIN PANEL Lab Routine Mild anemia Hypertension, essential, benign Hyperlipemia, mixed Ordered: 07/13/2024 VITAMIN B12 & FOLATE Lab Routine Mild anemia Hypertension, essential, benign Hyperlipemia, mixed Ordered: 07/13/2024 LACTATE DEHYDROGENASE LDH Lab Routine Mild anemia Hypertension, essential, benign Hyperlipemia, mixed Ordered: 07/13/2024 documented as of this encounter Goals Goal Patient Goal Type Associated Problems Recent Progress Patient-Stated? Author Blood Pressure < 130/80 Blood Pressure Hypertension, essential, benign 130/62( 025 10:10 AM EDT) No Brandin Fuentes, PharmD documented as of this encounter Visit Diagnoses Diagnosis Hypotension, unspecified hypotension type- Primary Mild anemia Anemia, unspecified Hypertension, essential, benign Essential hypertension, benign Hyperlipemia, mixed Mixed hyperlipidemia Mixed headache Headache documented in this encounter Additional Health Concerns Assessment Noted Time PHQ-9 Depression Total Score: 0 06/16/19 25 10:57 AM PST documented as of this encounter Care Teams Ocular Care Technician Relationship Specialty Start Date End Date Debbie Polk PA-C [facility] [place] [phone] PCP - General 02/12/13 documented as of this encounter
--- OUTSIDE RECORDS SUMMARY | 2024-07-22 10:31 | XMS_ITS | Encounter Summary ---
Author Organization [facility] Address [address] [place] [address] Care Team Providers Care Surveillance Monitor Name Role Phone JamRaymondDebbie PA-C Primary Care Provider + [phone] Reason for Visit * Reason Comments Correspondence Encounter Details Date Type Department Care Team (Late st Contact Info) Description 07/12/2024 Interim Notes [address] [phone] [address] Social History Tobacco Use Types Packs/Day Years [...] Notes * Bess Cisneros MA - 07/12/2024 9:04 AM EDT Faxed to Rx: [facility] documented in this encounter Plan of Treatment Upcoming Encounters Date Type Department Care Team (Late st Contact Info) Description 09/29/2024 10:00 AM EDT Office Visit [facility] [address] [phone] Debbie Polk PA-C [address] [place] [phone] documented as of this encounter Goals Goal [...] documented as of this encounter Care Teams Surveillance Monitor Relationship Specialty Start Date End Date Debbie Polk PA-C [address] [place] [phone] PCP - General 02/12/13 documented as of this encounter
== END 2024-07-22 10:01 | disposition home or self-care (01) ==
LOC: HO.HSMS 09:33
PROVIDERS: PCP Physician Assistant; Visit Provider Psychiatry & Neurology Neurology
DX: M54.2 Cervicalgia (principal); G44.86 Cervicogenic headache
CPT/HCPCS: 99214; G2211

== ENCOUNTER → 2024-07-22 09:33 | Outpatient (BNVA) | payer OTHER, SELFPAY | PROVIDERS: PCP Physician Assistant; Visit Provider Psychiatry & Neurology Neurology | DX: M54.2 Cervicalgia (principal); G44.86 Cervicogenic headache | CPT/HCPCS: 99212 ==

== ENCOUNTER 2024-09-16 10:07 | Outpatient (AMB) | payer OTHER, SELFPAY ==
--- NOTE | 2024-09-16 10:13 | A.OFFVIS_ITS ---
Intake Visit Reasons: EDUCATIONAL AID/Self-referral for BLE swelling Intake Note: New patient presents for BLE swelling. She had a knee replacement in 2019. Patient has pain, and tingling. Accompanied by: Daughter Allergies No Known Allergies Allergy (Verified 09/16/24 10:15) [facility] EDUCATIONAL AID/Self-referral for BLE swelling: Details: Pleasant 69-year-old female patient presents for painful varicose veins. Complaints include pain over varicosities, swelling of lower extremities, cramping, fatigue, and heaviness of the lower extremities. It has been affecting there daily activities including walking. It is noted more so in right leg. Patient denies any previous venous surgery or injections. Patient denies any history of DVT/ PE. Patient denies any history of phlebitis. Trial of compression includes - [id number] They now present for vascular evaluation regarding their varicose veins. [facility] Medical History Headache Cervicalgia Insomnia Depression Arthritis HTN (hypertension) Review of Systems Const Reports as per HPI ENT Reports no additional complaints Card Denies chest pain, Denies chest pain at rest and Denies chest pain with activity Resp Denies chest congestion and Denies cough GI Reports no additional complaints Musc Details: pain over varicosities, aching of lower extremities, swelling, cramping, heaviness and tiredness, itching Denies abnormal gait Skin/Breast Reports pruritus and Denies wounds Neuro Reports no additional complaints and Denies abnormal gait Psych Denies no additional complaints Physical Exam Const General: cooperative, healthy appearing and comfortable Orientation/consciousness: oriented to person, oriented to place and oriented to time Neck Carotids: no bruits Chest Chest palpation & inspection: normal inspection of the chest and normal palpation of entire chest wall Resp Effort & Inspection: normal respiratory effort and able to speak in complete sentences Cardio Rate: regular rate Heart sounds: S1 normal heart sound present and S2 normal heart sound present Peripheral pulses: Peripheral pulses 2+ throughout GI Inspection: Yes normal to inspection Skin Other: +2 edema, large rope-like varicosities greater than 4 mm CEAP Classification C4 - skin color changes Ep - Etiology Primary As - superficial veins P - reflux General skin exam: dry skin Neuro General: oriented to person, oriented to place and oriented to time Extrem Right lower extremity: full ROM, normal capillary refill and edema Left lower extremity: full ROM, normal capillary refill and edema Psych Mental Status: mental status grossly normal Assessment & Plan Assessment & Plan (1) Varicose veins of right lower extremity with inflammation: Code(s): I83.11 - Varicose veins of right lower extremity with inflammation Category: Medical Plan: In short, the patient has evidence of venous insufficiency. I have discussed the pathophysiology with the patient. In addition I have provided informational material regarding venous disease to the patient. We have discussed conservative measures including compression, elevation, and exercise. I have also provided a handout regarding appropriate use of compression stockings and where to purchase good compression stockings as well. I have taken the liberty of ordering venous insufficiency testing with the patient. They will follow up with me after testing. The patient had an opportunity to ask questions regarding the treatment plan. All questions were answered. Imaging studies, laboratory studies and physical exam results were discussed and reviewed in detail. No major barriers to understanding were identified. The patient expressed understanding and agreement with the above treatment plan. The patient is aware they should contact our office by phone for worsening of the current condition or the appearance of new symptoms. Thank you for allowing me to participate in the vascular care of this patient. If you have any questions or concerns regarding the treatment for the above condition please do not hesitate to contact me. The office telephone contact is [phone]. This note is constructed using voice recognition software. While every effort has been made to ensure accuracy, pin drafting machine operator errors may have been included. Thank you for allowing me to participate in the care of your patient. Yours sincerely, Joe Conner MD, FACS, R.P.V.I. Orders: Orders US venous duplex LE BI 1 Week I83.11 - Varicose veins of right lower extremity with inflammation Coding Level of Care Code New Pt Level 4 (56291) Diagnoses Varicose veins of right lower extremity with inflammation I83.11
--- OUTSIDE RECORDS SUMMARY | 2024-09-16 11:04 | XMS_ITS | Clinical Summary ---
Author Organization [facility] Address [address] [place] [address] Care Team Providers Care Textile Broker Name Role Phone Debbie Polk PA-C Primary Care Provider [phone] Source Comments PLEASE NOTE, if this patient [...] SHINGRIX vaccine: rash Medications hydrocortisone 2.5 % creamIndication s:Rash APLIQUE AL AREA AFECTADA DOS VECES AL WILDER 28 g 2 Active acetaminophen (MAPAP ARTHRITIS PAIN) 650 mg CR tabletIndicatio ns:Thoracic disc disease TOME DENNY TABLETA ANDREW VECES AL WILDER 90 Tablet 6 2 Active diclofenac sodium (VOLTAREN) 1 % gelIndications: Arthritis of knee, right APPLY 4 GM TWICE DAILY TO BOTH KNEES 300 g 11 2 Active zolpidem (AMBIEN) 5 mg tablet Take 5 mg by mouth 2 Active fluticasone (FLONASE) 50 mcg/actuation nasal sprayIndication s:Viral upper respiratory tract infection TOME DENNY INHALACION INTO EACH NOSTRIL TODOS LOS FRYE 48 mL 1 2 Active LORazepam (ATIVAN) 1 mg tabletIndicatio ns:Primary insomnia 3 Active MISCELLANEOUS MEDICAL SUPPLY MISCIndications :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 Cool mist humidifier, disp 1, lifetime need, dx CAD 1 Each 3 Active diphenhydrAMINE (BENADRYL) 25 mg capsuleIndicati ons:Adverse effect of vaccine, initial encounter,Aller gic reaction, initial encounter Take 1 Capsule by mouth every 6 (six) hours as needed for itching 15 Capsule 3 Active hydrOXYzine HCL (ATARAX) 25 mg tabletIndicatio ns:Adverse effect of vaccine, initial encounter,Aller gic reaction, initial encounter TAKE 1 TABLET BY MOUTH 3 TIMES A DAY EVERY DAY. USE THIS MEDICINE NEEDED FOR ITCHING. 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 90 Tablet 2 4 Active plecanatide (TRULANCE) 3 mg tab Take 1 Tablet by mouth daily. 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 30 Tablet 2 4 Active MISCELLANEOUS MEDICAL SUPPLY MISC by miscellaneous route daily. OMRON automatic blood pressure monitor, disp1,lifetime need, dx labile BP, HTn 1 Each 5 Active gabapentin (NEURONTIN) 300 mg capsuleIndicati ons:Primary insomnia TAKE 1 CAPSULE BY MOUTH AT BEDTIME. 90 Capsule 1 5 Active candesartan (ATACAND) 16 mg tabletIndicatio ns:Mixed headache,Hypert ension, essential, benign Take 1 Tablet by mouth nightly at bedtime 90 Tablet 3 5 Active ferrous sulfate 325 mg (65 mg iron) EC tabletIndicatio ns:Mild anemia Take 1 Tablet by mouth once daily with breakfast 90 Tablet 1 5 Active ascorbic acid, vitamin C, (VITAMIN C) 250 mg tabletIndicatio ns:Mild anemia Take 1 Tablet by mouth once daily with breakfast Take with the IRON tabs 90 Tablet 1 5 Active MISCELLANEOUS MEDICAL SUPPLY MISC by miscellaneous route daily 4 wheel rollator with seat, disp1, lifetime need, knee arthritis 1 Each 5 Active MISCELLANEOUS MEDICAL SUPPLY MISC by miscellaneous route daily SALONPAS, disp 90/month, dx low back pain 90 Each 11 5 Active amLODIPine (NORVASC) 2.5 mg tabletIndicatio ns:Hypertension , essential, benign Take 1 Tablet by mouth once daily 90 Tablet 3 5 Active FLUoxetine (PROZAC) 20 mg capsuleIndicati ons:Primary insomnia TAKE 3 CAPSULES BY MOUTH DAILY IN THE MORNING FOR MMD/ANXIETY. 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 No focal worrisome abnormality seen. WSN: [id number] Signature Line Dictated By: Carlos Shields MD [...] on November 18, 2016 9:50 Encounter info: [id number], [facility], One Time OP, 11/18/2016 - 11/18/2016 Contributor system: [employer] * Final Report * Echo Complete-Doppler, Colorflow, M-Mode Transthoracic Echocardiography Report (TTE) Patient Demographics Patient Name PLACIDO FULLER Date of Study 11/18/2016 Corporate Gender Female Facility Race Ethnicity or Date of 1955 Height: 62 inches Age 61 year(s) Weight: 145 pounds Accession Number [id number] BSA: 1.67 m2 Room Number BMI: 26.52 kg/m2 Referring Physician Nayely VALLEJO Interpreting Joseph Chacko MD Physician Hand Washer Loyd Marquez RCS Indications Peripheral edema. Clinical [...] cm/s PV Peak Gradient: 2.5 mmHg E/Med E':6.02659 E/Lat E':7.156818 Cardiac Anatomy Left Ventricle/Interventricular Septum The left [...] on 08 June 2014 23:26 Encounter info: [id number], [facility], Disch Obv, 06/08/2014 - 06/10/2014 * Final Report * [...] month followup it would be recommended. Examination 06016. Thank you for allowing me to participate [...] on 18 November 2014 11:51 Encounter info: [id number], [facility], Office Visit, 11/18/2014 - 11/25/2014 Contributor system: [employer] * Preliminary Report * Patient Letter (Unverified) PATIENT LETTER DATE:11/18/2014 [place] [address] Dear Diann Lewis was seen in cardiac clinic for follow-up with a solar site assessment specialist. As you know, she is a 59-year-old [...] was one followup nuclear stress test in 2013 showing no evidence of perfusion defect, LVEF [...] does not have follow-up lipid panel since 2013 in our [facility] recording. She is instructed to check up with you. Thank you for allowing me to partake in her care. Sincerely, Dictated by: Imelda Garcia M.D. Signing Clinician: Imelda Garcia M.D. Dictated: 11/18/2014 11:51:42 Transcribed: 11/18/2014 14:19:27 Transcribed by: LALAN DocID: [id number] PRELIMINARY REPORT UNLESS MANUALLY/ELECTRONICALLY SIGNED CC:Debbie Plok [address], [address] History of tobacco use, quit 2012 03/30/2013 Hypertension, essential, benign 03/30/2013 Hyperlipemia, mixed 03/30/2013 H/O colonoscopy 09/201508/13/2007 Overview (02/01/2016): Result type: Histology Result date: 19 Sep 2015 13:06 Result status: Auth (Verified) Result title: Performed by: Jarrell Amos MD on 19 Sep 2015 13:06 Verified by: Jarrell Amos MD on 19 Sep 2015 13:06 Encounter info: [id number], [facility], [facility], 09/19/2015 - 09/19/2015 Contributor system: [employer] * Final Report * Patient Name: PLACIDO [...] signed out by: Jarrell Amos M.D. / TACHO Clinical History: Anemia, GERD, EGD-polyps, gastritis; colonoscopy-diverticulosis, [...] ? 3 , eoe. (VC)* Phone #: [phone], On-Call Pathologist: [id number] Gastritis Overview (01/26/2021): Result type: Histology Result date: 12 August 2006 8:00 Result status: Auth (Verified) Result title: Performed by: [email or web address] -UNKNOWN, PERSONNEL on 12 August 2006 8:00 Verified by: [email or web address] -UNKNOWN, PERSONNEL on 12 August 2006 8:00 Encounter info: [id number], [facility] - 08/12/[facility] Contributor system: [employer] * Final Report * Patient Name: PLACIDO FULLER Lab Accesssion #: [id number] Patient : 1955 (Age: 51) Collection Date: [...] immunohistochemistry and in- situ hybridization laboratories at [facility]. They may not have been cleared or approved by the U.S. Food and Drug Administration (FDA). However, the FDA has determined that such clearance or approval is not necessary. These tests are used for clinical purposes. They should not be regarded as investigational or for research. Gross Description: Labelled ? antrum/body? . Received in formalin are four pieces of soft العر[place] tissue that range in size from 0.2 x 0.2 x 0.2 cm to 0.4 x 0.1 x 0.1 cm. The specimens are submitted in toto. 1 - 4 pieces, x3, plus H. Pylori, eoe (BENNY) Primary Pathologist: Karen Potts M.D. Phone #: [phone], On-Call Pathologist: [id number] Chronic midline low back pain without sciatica Encounters Date Type Department Care Team Description 07/13/2024 10:00 AM EDT Office Visit [address] [phone] Debbie Polk PA-C Hypotension, unspecified hypotension type (Primary Dx); Mild anemia; Hypertension, essential, benign; Hyperlipemia, mixed; Mixed headache 07/12/2024 Interim Notes [address] [phone] Bess Cisneros [place] 07/12/2024 Interim Notes [address] [phone] [facility] [place] from Last 3 Months Immunizations Immunization Administration Dates Next Due Flu, High Dose, 65y+, Fluzone High Dose 01/18/20 23 Flu, Preservative Free 02/03/2017 Influenza (FLUZONE), high-dose, trivalent, PF Moderna COVID-19 Vaccine, re d cap blue label, 12+ Primary Series 08/19/2020,07/21/2020 PFIZER COVID VACCINE, PURPLE CAP, 12+ 05/01/2021 PNEUMOCOCCAL CONJUGATE PCV 20 (Prevnar) 01/18/20 23 PNEUMOCOCCAL POLYSACCHARIDE PPV23 (Pneumovax 23) 01/13/2016 Td(adult),2 Lf tetanus toxoid,preservative free 02/03/1996 [...] 10:00 AM EDT Office Visit [facility] [address] [place] [address] Debbie Polk PA-C [address] [place] [address] Health Maintenance Due Date Last Done Comments [...] Screening 07/05/2027 Hepatitis C Screening Completed 12/09/2018 [id number] Discontinued 05/01/2021, 08/03, 07/21/2020 Imm-Influenza Discontinued 01/17/2023, [...] 025 10:10 AM EDT) No Brandin Fuentes, Bernabe Procedures Procedure Name Priority Date/Time Associated Diagnosis Comments OTHER ORDERS SCANNED DOCUMENT 08/10/2024 3:00 AM EDT REFERRAL SCANNED DOCUMENT 07/22/2024 3:00 AM EDT COMPREHENSIVE METABOLIC PANEL Routine 06/16/2024 11:21 AM EST 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 ([facility]) Hyperlipemia, mixed Mild anemia Encounter for screening mammogram for malignant neoplasm of breast Mixed headache Mild vitamin D deficiency LIPID PANEL Routine 01/27/2024 11:53 AM EDT Routine general medical examination at a health care facility Mild anemia Hyperlipemia, mixed Hypertension, essential, benign Dizziness DXA BONE DENSITY STUDY / SITES AXIAL SKEL Routine 05/15/2023 3:00 AM EST Osteoporosis screening MAMMO DIGITAL SCREEN YOSEF W CAD 3D Routine 05/15/2023 3:00 AM EST Breast cancer screening by mammogram HISTORIC COLONOSCOPY 07/04/2022 3:00 AM EST HEPATITIS A,B,C PANEL Routine 12/09/2018 11:11 AM EDT Pre-op exam from Last 3 Months or Most Recently Relevant to Health Maintenance Results * OTHER ORDERS SCANNED DOCUMENT (08/10/2024 3:00 AM EDT) 08/10/2024 3:00 AM EDT Debbie Polk PA-C SCAN OTHER ORDERS Final Resu lt * REFERRAL SCANNED DOCUMENT (07/22/2024 3:00 AM EDT) 07/22/2024 3:00 AM EDT Debbie Polk PA-C SCAN REFERRAL Final Result * (ABNORMAL) COMPREHENSIVE METABOLIC PANEL (06/16/2024 11:21 AM EST) GLUCOSE 100(H) 65 - 99 mg/dL [facility] Comment: ?Fasting reference interval For someone without known diabetes, a glucose value between 100 and 125 mg/dL is consistent with prediabetes and should be confirmed with a follow-up test. UREA NITROGEN (BUN) 18 7 - 25 mg/dL [facility] CREATININE (blood) 0.90 0.60 - 1.00 mg/dL [facility] EGFR 68 > OR = 60 mL/min/1. 73m2 [facility] BUN/CREATININE RATIO SEE NOTE: [facility] Comment: ?? Not Reported: BUN and Creatinine are within ?? reference range. ? SODIUM 137 135 - 146 mmol/L [facility] POTASSIUM 4.0 3.5 - 5.3 mmol/L [facility] CHLORIDE 98 98 - 110 mmol/L [facility] CARBON DIOXIDE 30 20 - 32 mmol/L [facility] CALCIUM 9.5 8.6 - 10.4 mg/dL [facility] PROTEIN, TOTAL 6.7 6.1 - 8.1 g/dL [facility] ALBUMIN 4.6 3.6 - 5.1 g/dL [facility] GLOBULIN 2.1 1.9 - 3.7 g/dL (calc) [facility] ALBUMIN/GLOBULI N RATIO 2.2 1.0 - 2.5 (calc) [facility] BILIRUBIN, TOTAL 0.4 0.2 - 1.2 mg/dL [facility] ALKALINE PHOSPHATASE 80 37 - 153 U/L [facility] AST 21 10 - 35 U/L [facility] ALT 10 6 - 29 U/L [facility] Blood Blood / Unknown 06/16/2024 1 1:21 AM EST 06/16/2024 11:22 AM EST us Debbie Polk PA-C LAB - BLOOD DRAW Edited Resu lt - Final [facility] [address] [address], [facility] [address] [place] [address] * (ABNORMAL) LIPID PANEL (01/27/2024 11:53 AM EDT) CHOLESTEROL, TOTAL 183 <200 mg/dL [facility] HDL CHOLESTEROL 55 > OR = 50 mg/dL [facility] TRIGLYCERIDES 142 <150 mg/dL [facility] LDL-CHOLESTEROL 104(H) 99 mg/dL (calc) [facility] Comment: Reference range: <100 Desirable range <100 mg/dL for primary prevention; ?? <70 mg/dL for patients with CHD or diabetic patients with > or = 2 CHD risk factors. LDL-C is now calculated using the Vasyl calculation, which is a validated novel method providing better accuracy than the Friedewald equation in the estimation of LDL-C. Farhan SS et al. LYN. 2013;310(19): 9952-2654 (http://education.tutoria [employer]/faq/HWT311) CHOL/HDLC RATIO 3.3 <5.0 (calc) [facility] NON-HDL CHOLESTEROL 128 <130 mg/dL (calc) [facility] Comment: For patients with diabetes plus 1 major ASCVD risk factor, treating to a non-HDL-C goal of <100 mg/dL (LDL-C of <70 mg/dL) is considered a therapeutic option. Blood Blood / Unknown 01/27/2024 1 1:53 AM EDT 01/27/2024 11:54 AM EDT Narrative [facility] - 01/29/2024 7:39 PM EDT FASTING:NO Debbie Polk PA-C LAB - BLOOD DRAW Final Resul t [facility] [address] [place] [id number], [facility] [address] [id number] * MAMMO DIGITAL SCREEN YOSEF W CAD 3D (05/15/2023 3:00 AM EST) 05/15/2023 3:00 AM EST Debbie Polk PA-C IMG MAMMO Edited Resul t - Final * DXA BONE DENSITY STUDY 1/> SITES AXIAL SKEL (05/15/2023 3:00 AM EST) 05/15/2023 3:00 AM EST Debbie Polk PA-C IMG DXA Final Result * HISTORIC COLONOSCOPY (07/04/2022 3:00 AM EST) 07/04/2022 3:00 AM EST Debbie Polk PA-C PROCEDURES Edited Resul t - Final * (ABNORMAL) HEPATITIS A,B,C PANEL (12/09/2018 11:11 AM EDT) HEPATITIS B SURFACE ANTIGEN NEGATIVE NEGATIVE [facility] Comment: Over the counter supplements containing high doses of biotin may interfere with this assay. ??If interference is suspected, patients shoud be retested after refraining from biotin supplements for 72 hours. HEPATITIS B SURFACE ANTIBODY NEGATIVE NEGATIVE [facility] HEPATITIS C VIRUS DIAGNOSTIC NEGATIVE NEGATIVE [facility] HEPATITIS A ANTIBODY TOTAL POSITIVE(A) NEGATIVE [facility] Comment: Over the counter supplements containing high doses of biotin may interfere with this assay. ??If interference is suspected, patients shoud be retested after refraining from biotin supplements for 72 hours. HEPATITIS B CORE ANTIBODY NEGATIVE NEGATIVE [facility] Blood specimen (specimen) Blood / Unknown 12/09/2018 11:11 AM EDT 12/09/2018 11:15 AM EDT Narrative [facility] - 12/09/2018 4:05 PM EDT [employer], [place] [address] Dress Operator - Candice Holden MD [place] ID [id number] ORD# [id number] us Debbie Polk PA-C LAB - BLOOD DRAW Edited Resu lt - Final [facility] [place] [place] [address], [place] [phone] from Last 3 Months or Most Recently Relevant to Health Maintenance Insurance [facility] Member Subscriber Plan / Payer (Ef fective 2018-Present) Name:Placido Roberts Relation to Subscriber:Self Name:Placido Roberts Payer ID:[id number] Group ID:Not on file Type:Indemnity Address: [place] [address] [address] [place] [address] Care Teams Textile Broker Relationship Specialty Start Date End Date Debbie Polk PA-C [address] [place] [address] PCP - General 02/12/13
== END 2024-09-16 10:31 | disposition home or self-care (01) ==
LOC: HO.HVS 10:07
PROVIDERS: PCP Physician Assistant; Visit Provider Surgery Vascular Surgery
DX: I83.11 Varicose veins of right lower extremity with inflammation (principal)
CPT/HCPCS: 99204

== ENCOUNTER → 2024-09-16 10:07 | Outpatient (BNVA) | payer OTHER, SELFPAY | PROVIDERS: PCP Physician Assistant; Visit Provider Surgery Vascular Surgery | DX: I83.11 Varicose veins of right lower extremity with inflammation (principal); I83.811 Varicose veins of right lower extremity with pain | CPT/HCPCS: 99202 ==

== ENCOUNTER 2024-10-08 13:34 | Outpatient (REF) | payer OTHER, SELFPAY ==
--- NOTE | ~2024-10-08 | US_ITS ---
EXAMINATION: US LOWER EXTREMITY VENOUS (REFLUX EXAM), BILATERAL CLINICAL INFORMATION: Right lower extremity varicose veins with inflammation COMPARISON: None. TECHNIQUE: Color flow triplex imaging and compression Doppler was performed to evaluate both the deep and the superficial systems bilaterally. To evaluate the superficial system, the examination was performed in the upright position. Color-flow Doppler ultrasound and compression ultrasound were utilized. In addition, maneuvers were utilized to demonstrate reflux. FINDINGS: 1. DEEP VENOUS ULTRASOUND OF THE RIGHT LOWER EXTREMITY: Common Femoral Vein: Compressible, normal respiratory variation and augmented flow. Femoral Vein: Compressible, normal color flow and augmentation. Popliteal Vein: Compressible, normal augmentation. Deep Reflux: There is no evidence of reflux in the deep system in either the common femoral vein, superficial femoral or the popliteal vein. 2. SUPERFICIAL ULTRASOUND WITH DOPPLER OF RIGHT LOWER EXTREMITY: GREAT SAPHENOUS VEIN: Saphenofemoral Junction: 0.6 cm; Reflux: 0 ms Proximal Thigh: 0.4 cm; Reflux: 0 ms Mid Thigh: 0.3 cm; Reflux: 0 ms Distal Thigh: 0.3 cm; Reflux: 0 ms At Knee: 0.2 cm; Reflux: 0 ms Proximal Calf: 0.2 cm; Reflux: >2428 ms Mid Calf: 0.3 cm; Reflux: 2460 ms Distal Calf: 0.2 cm; Reflux: >2604 ms DUPLICATED MEDIAL GREAT SAPHENOUS VEIN: Diameter: None imaged Reflux: NA DUPLICATED LATERAL GREAT SAPHENOUS VEIN: Diameter: None imaged Reflux: NA SMALL SAPHENOUS VEIN: Thigh drainage Saphenopopliteal Junction: 0.2 cm; Reflux: 0 ms Proximal: 0.1 cm; Reflux: 0 ms Distal: 0.2 cm; Reflux: > 2696 ms VEIN OF GIACOMINI: Size: NA Reflux: NA PERFORATORS: Location: Small saphenous vein mid, perforators into varicose vein Size: 0.3 cm Reflux: 0 ms Location: Small saphenous vein into varicose vein, 25 cm cephalad to calcaneus Size: 0.2 cm Reflux: > 2344 ms Location: Greater saphenous vein, proximal calf Size: 0.1 cm Reflux: 0 ms Location: Greater saphenous vein, distal calf Size: 0.1 cm Reflux: 0 ms VARICOSITIES >3mm: Location: Small saphenous vein, mid Size: 0.3 cm Reflux: > 2548 ms Location: Small saphenous vein, mid Size: 0.3 cm Reflux: > 2604 ms 3. DEEP VENOUS ULTRASOUND OF THE LEFT LOWER EXTREMITY: Common Femoral Vein: Compressible, normal respiratory variation and augmented flow. Femoral Vein: Compressible, normal color flow and augmentation. Popliteal Vein: Compressible, normal augmentation. Deep Reflux: There is no evidence of reflux in the deep system in either the common femoral vein, superficial femoral or the popliteal vein. There is no evidence of a Vaughn's cyst. 4. SUPERFICIAL ULTRASOUND WITH DOPPLER OF LEFT LOWER EXTREMITY: GREAT SAPHENOUS VEIN: Saphenofemoral Junction: 0.8 cm; Reflux: 0 ms Proximal Thigh: 0.5 cm; Reflux: 0 ms Mid Thigh: 0.2 cm; Reflux: > 2332 ms Distal Thigh: 0.3 cm; Reflux: 0 ms At Knee: 0.3 cm; Reflux: > 2368 ms Proximal Calf: 0.2 cm; Reflux: 0 ms Mid Calf: 0.2 cm; Reflux: > 2340 ms Distal Calf: 0.2 cm; Reflux: > 2204 ms Lateral accessory great saphenous vein Saphenofemoral Junction: 4 cm; Reflux: 0 ms Mid Thigh: 0.2 cm; Reflux: > 2716 ms DUPLICATED MEDIAL GREAT SAPHENOUS VEIN: Diameter: None imaged Reflux: NA DUPLICATED LATERAL GREAT SAPHENOUS VEIN: Diameter: None imaged. Reflux: NA SMALL SAPHENOUS VEIN: Popliteal vein drainage. Short linear echogenic focus without posterior acoustic shadowing is present on the posterior wall of the proximal vessel near the popliteal vein. It is nonocclusive. Saphenopopliteal Junction: 0.3 cm; Reflux: 704 ms Proximal: 0.3 cm; Reflux: 0 ms Distal: 0.3 cm; Reflux: 0 ms VEIN OF GIACOMINI: Size: 0.2 Reflux: 0 PERFORATORS: Location: Greater saphenous vein, mid thigh, 54 cm cephalad to the calcaneus Size: 0.4 cm Reflux: > 2560 ms Location: Greater saphenous vein, and into varicose vein, 35 cm cephalad to calcaneus Size: 0.3 cm Reflux: 2876 ms Location: Greater saphenous vein, proximal calf Size: 0.2 cm Reflux: 0 ms Location: Posterior saphenous vein, distal calf into varicose vein Size: 0.3 cm Reflux: > 2716 ms VARICOSITIES >3mm: Location: Greater saphenous vein, 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 Varicosities are also noted. Left: There is venous reflux consistent with incompetence of valves. Varicosities as noted. 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 Electronically signed by: Bernardino Thompson MD 10/08/2024 04:13 PM EDT
--- OUTSIDE RECORDS SUMMARY | 2024-10-08 13:38 | XMS_ITS | Clinical Summary ---
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 90 Tablet 2 4 Active plecanatide (TRULANCE) 3 mg tab Take 1 Tablet by mouth daily. 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 ([facility] V24) TAKE 1 TABLET BY MOUTH ONCE DAILY 90 Tablet 3 5 Active Active Problems Problem Noted Date Diagnosed Date Mixed headache 06/16/2024 Thoracic disc disease 01/26/2021 Right facial numbness 01/26/2021 01/26/2021 Normocytic anemia 01/13/2020 Functional constipation 11/10/2018 Hepatic cyst 08/2018, no follow up is needed Overview (07/02/2019): Result type: MRI Abdomen W+W/O Contrast Result date: August 29, 2018 10:55 EDT Result status: Auth (Verified) Result title: MRI Abdomen W+W/O Contrast Performed by: Carlos Shields MD on August 31, 2018 10:05 EDT Verified by: Carlos Shields MD on August 31, 2018 10:05 EDT Encounter info: [id number], [facility] One [facility] OP, 08/29/2018 - 08/29/2018 * [...] 3. No focal worrisome abnormality seen. WSN: [id number] Signature Line Dictated By: Carlos Shields MD [...] on November 18, 2016 9:50 Encounter info: [id number], [facility] One Time OP, 11/18/2016 - 11/18/2016 Contributor system: [employer] * Final Report * Echo Complete-Doppler, Colorflow, M-Mode Transthoracic Echocardiography Report (TTE) Patient Demographics Patient Name PLACIDO FULLER Date of Study 11/18/2016 Corporate Gender Female Facility Race Ethnicity or Date of 1955 Height: 62 inches Age 61 year(s) Weight: 145 pounds Accession Number [id number] BSA: 1.67 m2 Room Number BMI: 26.52 kg/m2 Referring Physician Nayely VALLEJO Interpreting Joseph Chacko MD Physician Jelly Maker Loyd Marquez RCS Indications Peripheral edema. Clinical [...] cm/s PV Peak Gradient: 2.5 mmHg E/Med E':6.84830 E/Lat E':7.173696 Cardiac Anatomy Left Ventricle/Interventricular Septum The left [...] on 08 June 2014 23:26 Encounter info: [id number], [facility], Disch Obv, 06/08/2014 - 06/10/2014 * [...] month followup it would be recommended. Examination 17923. Thank you for allowing me to participate [...] on 18 November 2014 11:51 Encounter info: [id number], [facility], Office Visit, 11/18/2014 - 11/25/2014 Contributor system: [employer] * Preliminary Report * Patient Letter (Unverified) PATIENT LETTER DATE:11/18/2014 [place] [address] Dear Diann Lewis was seen in cardiac clinic for follow-up with a high value associate. As you know, she is a 59-year-old [...] Transcribed: 11/18/2014 14:19:27 Transcribed by: ALLAN DocID: [id number] PRELIMINARY REPORT UNLESS MANUALLY/ELECTRONICALLY SIGNED CC:Debbie Polk [address] [place], [address] History of tobacco use, quit 2012 03/30/2013 Hypertension, essential, benign 03/30/2013 Hyperlipemia, mixed 03/30/2013 H/O colonoscopy 09/201508/13/2007 Overview (02/01/2016): Result type: Histology Result date: 19 Sep 2015 13:06 Result status: Auth (Verified) Result title: Performed by: Jarrell Amos MD on 19 Sep 2015 13:06 Verified by: Jarrell Amos MD on 19 Sep 2015 13:06 Encounter info: [id number], [facility], [facility], 09/19/2015 - 09/19/2015 Contributor system: [employer] * Final Report * Patient Name: PLACIDO [...] ? 3 , eoe. (VC)* Phone #: [phone], On-Call Pathologist: [id number] Gastritis Overview (01/26/2021): Result type: Histology Result date: 12 August 2006 8:00 Result status: Auth (Verified) Result title: Performed by: [email or web address] -UNKNOWN, PERSONNEL on 12 August 2006 8:00 Verified by: [email or web address] -UNKNOWN, PERSONNEL on 12 August 2006 8:00 Encounter info: [id number], [facility], [facility], 08/12/2006 - 08/12/2006 Contributor system: [employer] * Final Report * Patient Name: PLACIDO FULLER Lab Accesssion #: [id number] Patient : 1955 (Age: 51) Collection Date: [...] immunohistochemistry and in- situ hybridization laboratories at [facility]. They may not have been cleared or [...] Primary Pathologist: Karen Potts M.D. 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 ([facility] V24) (Primary Dx); Hyperlipemia, mixed; Hypertension, essential, benign; Normocytic anemia; Mild vitamin D deficiency; Elevated glucose; Chronic right shoulder pain 07/13/2024 10:00 AM EDT Office Visit [address] [address] Debbie Polk PA-C Hypotension, unspecified hypotension type (Primary Dx); Mild anemia; Hypertension, essential, benign; Hyperlipemia, mixed; Mixed headache 07/12/2024 Interim Notes [address] [address] Bess Cisneros [place] 07/12/2024 Interim Notes [address] [address] Bess Cisneros [place] from Last 3 Months Immunizations Immunization Administration [...] toxoid,preservative free 02/03/1996 ZOSTER VACCINE, RECOMBINANT ([place]RIX) Social History Tobacco Use Types Packs/Day Years [...] Sign Reading Time Taken Comments Blood Pressure 132/74 09/29/2024 9:55 AM EDT Pulse 81 09/29/2024 9:55 AM EDT Temperature 36.7 ??C (98.1 ??F) 09/29/2024 9:55 AM ED T Respiratory Rate 16 09/29/2024 9:55 AM EDT Oxygen Saturation 95% 09/29/2024 9:55 AM EDT Inhaled Oxygen Concentration - - Weight 65.3 kg (144 lb) 09/29/2024 9:55 AM EDT Height 157.5 cm (5' 2 ) 09/29/2024 9:55 AM EDT Body Mass Index 26.34 09/29/2024 9:55 AM EDT Plan of Treatment Health Maintenance Due Date Last Done Comments Medicare Annual Wellness Visit 1971 CT Colonography 1998 Fecal DNA 1998 Flexible Sigmoidoscopy 1998 FIT/gFOBT 07/09/2015 07/08/2014 (Decl ined), 05/11/2013 (Declined) Imm-DTaP/Tdap/Td (1 - Tdap) 10/13/2024 02/03/1996 Postponed from 02/04/1996 (Patient postponement) Imm-Zoster, Recombinant (2 of 2) 10/13/2024 06/12/2021 Postponed from 08/07/2021 (Patient postponement) [id number] ( season) 2024 05/01/2021, 08/19/2020, 07/21/2020 Postponed from 01/04/2024 (Patient postponement) Imm-Influenza (Season Ended) 2025 01/17/2023, 07/14/2019, 02/03/2017, Additional history exists Lipid Screening 01/26/2025 01/27/2024, 07/03, 01/17/2023, Additional history exists Falls Prevention 07/13/2025 07/13/2024 (Man aged by Outside Provider) Diabetes Screening 09/29/2025 09/29/2024, 0 06/16/2024, 05/13/2024, Additional history exists Tobacco Screening 09/29/2025 09/29/2024 Breast Cancer Screening (Mammogram) 09/15/2026 09/15/2024, 05/15/2023, 09/20/2020, Additional history exists Colonoscopy 07/05/2027 07/04/2022, 09/19/2015 Colorectal Cancer Screening 07/05/2027 Hepatitis C Screening Completed 12/09/2018 Imm-Pneumococcal 65+ Completed 01/17/2023, 01/13/20 16 Bone Density Screening Completed 05/15/2023 Alcohol and Drug Screen Completed 06/16/19 25, 10/29/2023, 10/02/2022, Additional history exists Depression Annual Screen Completed 025, 01/20/2015 (Managed by Outside Provider), 01/06/2014 (Managed by Outside Provider) Goals Goal Patient Goal Type Associated Problems Recent Progress Patient-Stated? 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 ([facility] V24) Hyperlipemia, mixed Hypertension, essential, benign Normocytic anemia Mild vitamin D deficiency Elevated glucose BLOOD COUNT RETICULOCYTE AUTOMATED Routine 09/29/2024 10:22 AM EDT 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 ([facility] V24) Hyperlipemia, mixed Hypertension, essential, benign Normocytic anemia Mild vitamin D deficiency Elevated glucose VITAMIN B12 & FOLATE Routine 09/29/2024 10:22 AM EDT 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 ([facility] V24) Hyperlipemia, mixed Hypertension, essential, benign Normocytic anemia Mild vitamin D deficiency Elevated glucose IRON, TIBC, FERRITIN PANEL Routine 09/29/2024 10:22 AM EDT 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 ([facility] V24) Hyperlipemia, mixed Hypertension, essential, benign Normocytic anemia Mild vitamin D deficiency Elevated glucose BLOOD COUNT COMPLETE AUTO&AUTO DIFRNTL WBC Routine 09/29/2024 10:22 AM EDT 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 ([facility] V24) Hyperlipemia, mixed Hypertension, essential, benign Normocytic anemia Mild vitamin D deficiency Elevated glucose IMAGING SCANNED DOCUMENT 09/16/2024 3:00 AM EDT SCREENING MAMMOGRAM BILATERAL Routine 09/15/2024 3:00 AM EDT Encounter for screening mammogram for malignant neoplasm of breast OTHER ORDERS SCANNED DOCUMENT 08/10/2024 3:00 AM EDT REFERRAL SCANNED DOCUMENT 07/22/2024 3:00 AM EDT LIPID PANEL Routine 01/27/2024 11:53 AM EDT Routine general [facility] Mild anemia Hyperlipemia, mixed Hypertension, essential, benign Dizziness DXA BONE DENSITY STUDY 1/ SITES AXIAL SKEL Routine 05/15/2023 3:00 AM EST Osteoporosis screening HISTORIC COLONOSCOPY 07/04/2022 3:00 AM EST HEPATITIS A,B,C PANEL Routine 12/09/2018 11:11 AM EDT Pre-op exam from Last 3 Months or Most Recently Relevant to Health Maintenance Results * (ABNORMAL) HGA1C W/EAG Routine (09/29/2024 10:22 AM EDT) HEMOGLOBIN A1C 5.8(H) <5.7 % [facility] [employer] [facility] Comment: For someone without known diabetes, a hemoglobin A1c value between 5.7% and 6.4% is consistent with prediabetes and should be confirmed with a follow-up test. For someone with known diabetes, a value <7% indicates that their diabetes is well controlled. A1c targets should be individualized based on duration of diabetes, age, comorbid conditions, and other considerations. This assay result is consistent with an increased risk of diabetes. Currently, no consensus exists regarding use of hemoglobin A1c for diagnosis of diabetes for children. EAG (MG/DL) 120 mg/dL [facility] EAG (MMOL/L) 6.6 mmol/L [facility] Blood Blood / Unknown 09/29/2024 1 0:22 AM EDT 09/29/2024 10:23 AM EDT Narrative [facility] - 09/30/2024 7:37 AM EDT SPECIALIZED COLLECTION. PATIENT REFERRED TO ALTERNATE SITE. Debbie Polk PA-C LAB - BLOOD DRAW Edited Resu lt - Final [facility] [address] [place] [address], [facility] [place] [facility] [address] [place] [phone] * (ABNORMAL) IRON, TIBC, FERRITIN PANEL Routine (09/29/2024 10:22 AM EDT) Pathologist [facility] FERRITIN 26 16 - 288 ng/mL [facility] IRON, TOTAL 44(L) 45 - 160 mcg/dL [facility] IRON BINDING CAPACITY 303 250 - 450 mcg/dL (calc) [facility] % SATURATION 15(L) 16 - 45 % (calc) [facility] Blood Blood / Unknown 09/29/2024 1 0:22 AM EDT 09/29/2024 10:23 AM EDT Narrative [facility] - 09/30/2024 7:37 AM EDT SPECIALIZED COLLECTION. PATIENT REFERRED TO ALTERNATE SITE. Debbie Polk PA-C LAB - BLOOD DRAW Final Resul t Performing Organization Address City/[facility]/ZIP Co de Phone Number [facility] [address] [place] [address], [facility] [address] [place] [phone] * VITAMIN B12 & FOLATE Routine (09/29/2024 10:22 AM EDT) Pathologist [facility] VITAMIN B12 304 200 - 1,100 pg/mL [facility] Comment: Please Note: Although the reference range for vitamin B12 is 200-1100 pg/mL, it has been reported that between 5 and 10% of patients with values between 200 and 400 pg/mL may experience neuropsychiatric and hematologic abnormalities due to occult B12 deficiency; less than 1% of patients with values above 400 pg/mL will have symptoms. FOLATE, SERUM 14.1 5.5 ng/mL [facility] Comment: ? Reference Range ? Low: ? <3.4 ? Borderline: ?3.4-5.4 ? Normal: ?>5.4 Blood Blood / Unknown 09/29/2024 1 0:22 AM EDT 09/29/2024 10:23 AM EDT Narrative [facility] - 09/30/2024 7:37 AM EDT SPECIALIZED COLLECTION. PATIENT REFERRED TO ALTERNATE SITE. Debbie Polk PA-C LAB - BLOOD DRAW Edited Resu lt - Final Performing Organization Address [facility] de Phone Number [facility] [address] [place] [address], [facility] [address] [phone] * BLOOD COUNT RETICULOCYTE AUTOMATED Routine (09/29/2024 10:22 AM EDT) RETICULOCYTE COUNT, AUTOMATED 1.2 % [facility] RETICULOCYTE, ABSOLUTE 42,120 20,000 - 80,000 cells/uL [facility] Blood Blood / Unknown 09/29/2024 1 0:22 AM EDT 09/29/2024 10:23 AM EDT Narrative [facility] - 09/30/2024 7:37 AM EDT SPECIALIZED COLLECTION. PATIENT REFERRED TO ALTERNATE SITE. us Debbie Polk PA-C LAB - BLOOD DRAW Final Resul t Performing Organization Address [facility] de Phone Number [facility] [address] [place] [address], [address] [phone] * (ABNORMAL) BLOOD COUNT COMPLETE AUTO&AUTO DIFRNTL WBC Routine (09/29/2024 10:22 AM EDT) WHITE BLOOD CELL COUNT 5.8 3.8 - 10.8 Thousand/ uL [facility] RED BLOOD CELL COUNT 3.51(L) 3.80 - 5.10 Million/u L [facility] HEMOGLOBIN 10.9(L) 11.7 - 15.5 g/dL [facility] HEMATOCRIT 32.9(L) 35.0 - 45.0 % [facility] MCV 93.7 80.0 - 100.0 fL [facility] MCH 31.1 27.0 - 33.0 pg [facility] MCHC 33.1 32.0 - 36.0 g/dL [facility] Comment: For adults, a slight decrease in the calculated MCHC value (in the range of 30 to 32 g/dL) is most likely not clinically significant; however, it should be interpreted with caution in correlation with other red cell parameters and the patient's clinical condition. RDW 13.1 11.0 - 15.0 % [facility] PLATELET COUNT 179 140 - 400 Thousand/ uL [facility] MPV 10.9 7.5 - 12.5 fL [facility] ABSOLUTE NEUTROPHILS 4,043 1,500 - 7,800 cells/uL [facility] ABSOLUTE LYMPHOCYTES 1,067 850 - 3,900 cells/uL [facility] ABSOLUTE MONOCYTES 470 200 - 950 cells/uL [facility] ABSOLUTE EOSINOPHILS 191 15 - 500 cells/uL [facility] ABSOLUTE BASOPHILS 29 0 - 200 cells/uL [facility] [place] [facility] NEUTROPHILS PCT 69.7 % [facility] [employer] [facility] LYMPHOCYTES 18.4 % [facility] MONOCYTES 8.1 % [facility] [employer] [facility] EOSINOPHILS 3.3 % [facility] BASOPHILS 0.5 % [facility] [employer] [facility] Blood Blood / Unknown 09/29/2024 1 0:22 AM EDT 09/29/2024 10:23 AM EDT Narrative [facility] - 09/30/2024 7:37 AM EDT SPECIALIZED COLLECTION. PATIENT REFERRED TO ALTERNATE SITE. Debbie Polk PA-C LAB - BLOOD DRAW Edited Resu lt - Final [facility] [address] [address], [facility] [address] [place] [address] * LACTATE DEHYDROGENASE LDH Routine (09/29/2024 10:22 AM EDT) [facility] LD 159 120 - 250 U/L [facility] 09/29/2024 10:2 2 AM EDT 09/29/2024 10:23 AM EDT Narrative [facility] - 09/30/2024 7:37 AM EDT SPECIALIZED COLLECTION. PATIENT REFERRED TO ALTERNATE SITE. us Debbie Polk PA-C LAB - BLOOD DRAW Final Resul t [facility] [address] [address], [facility] [address] [place] [address] * HEPATIC FUNCTION PANEL Routine (09/29/2024 10:22 AM EDT) [facility] PROTEIN, TOTAL 6.3 6.1 - 8.1 g/dL [facility] ALBUMIN 3.9 3.6 - 5.1 g/dL [facility] GLOBULIN 2.4 1.9 - 3.7 g/dL (calc) [facility] ALBUMIN/GLOBULIN RATIO 1.6 1.0 - 2.5 (calc) [facility] BILIRUBIN, TOTAL 0.4 0.2 - 1.2 mg/dL [facility] BILIRUBIN, DIRECT 0.1 0.0 - 0.2 mg/dL [facility] BILIRUBIN, INDIRECT 0.3 0.2 - 1.2 mg/dL (calc) [facility] ALKALINE PHOSPHATASE 79 37 - 153 U/L [facility] AST 20 10 - 35 U/L [facility] ALT 12 6 - 29 U/L [facility] Blood Blood / Unknown 09/29/2024 1 0:22 AM EDT 09/29/2024 10:23 AM EDT [facility] - 09/30/2024 7:37 AM EDT SPECIALIZED COLLECTION. PATIENT REFERRED TO ALTERNATE SITE. us Debbie Lukin PA-C LAB - BLOOD DRAW Final Resul t [facility] [address] [address], [facility] [address] [place] [address] * IMAGING SCANNED DOCUMENT (09/16/2024 3:00 AM EDT) 09/16/2024 3:00 AM EDT us Debbie Lukin PA-C SCAN IMAGING Final Result * SCREENING MAMMOGRAM BILATERAL (09/15/2024 3:00 AM EDT) 09/15/2024 3:00 AM EDT us Debbie Lukin PA-C IMG MAMMO Final Result * OTHER ORDERS SCANNED DOCUMENT (08/10/2024 3:00 AM EDT) 08/10/2024 3:00 AM EDT us Debbie Lukin PA-C SCAN OTHER ORDERS Final Resu lt * REFERRAL SCANNED DOCUMENT (07/22/2024 3:00 AM EDT) 07/22/2024 3:00 AM EDT us Debbie Lukin PA-C SCAN REFERRAL Final Result * (ABNORMAL) LIPID PANEL (01/27/2024 11:53 AM EDT) CHOLESTEROL, TOTAL 183 <200 mg/dL [facility] HDL CHOLESTEROL 55 > OR = 50 mg/dL [facility] TRIGLYCERIDES 142 <150 mg/dL [facility] LDL-CHOLESTEROL 104(H) 99 mg/dL (calc) [facility] Comment: Reference range: <100 Desirable range <100 mg/dL for primary prevention; ?? <70 mg/dL for patients with CHD or diabetic patients with > or = 2 CHD risk factors. LDL-C is now calculated using the Vasyl calculation, which is a validated novel method providing better accuracy than the Friedewald equation in the estimation of LDL-C. Farhan LEMUS et al. LYN. 2013;310(19): 6677-3417 (http://education.ApeSoft/faq/HMG426) CHOL/HDLC RATIO 3.3 <5.0 (calc) [facility] NON-HDL CHOLESTEROL 128 <130 mg/dL (calc) [facility] Comment: For patients with diabetes plus 1 major ASCVD risk factor, treating to a non-HDL-C goal of <100 mg/dL (LDL-C of <70 mg/dL) is considered a therapeutic option. Blood Blood / Unknown 01/27/2024 1 1:53 AM EDT 01/27/2024 11:54 AM EDT Narrative [facility] - 01/29/2024 7:39 PM EDT FASTING:NO us Debbie Polk PA-C LAB - BLOOD DRAW Final Resul t [facility] [address] [place] [address], [facility] [address] [place] [phone] * DXA BONE DENSITY STUDY 1/> SITES AXIAL SKEL (05/15/2023 3:00 AM EST) 05/15/2023 3:00 AM EST us Debbie Polk PA-C IMG DXA Final Result * HISTORIC COLONOSCOPY (07/04/2022 3:00 AM EST) 07/04/2022 3:00 AM EST us Debbie Polk PA-C PROCEDURES Edited Resul t - Final * (ABNORMAL) HEPATITIS A,B,C PANEL (12/09/2018 11:11 AM EDT) Pathologist [facility] HEPATITIS B SURFACE ANTIGEN NEGATIVE NEGATIVE [facility] Comment: Over the counter supplements containing high doses of biotin may interfere with this assay. ??If interference is suspected, patients shoud be retested after refraining from biotin supplements for 72 hours. HEPATITIS B SURFACE ANTIBODY NEGATIVE NEGATIVE [facility] HEPATITIS C VIRUS DIAGNOSTIC NEGATIVE NEGATIVE [facility] HEPATITIS A ANTIBODY TOTAL POSITIVE(A) NEGATIVE [facility] Comment: Over the counter supplements containing high doses of biotin may interfere with this assay. ??If interference is suspected, patients shoud be retested after refraining from biotin supplements for 72 hours. HEPATITIS B CORE ANTIBODY NEGATIVE NEGATIVE [facility] Blood specimen (specimen) Blood / Unknown 12/09/2018 11:11 AM EDT 12/09/2018 11:15 AM EDT Narrative [facility] - 12/09/2018 4:05 PM EDT [email or web address], [place] [address] Residential Direct Support Professional - Candice Holden MD [place] [id number] ORD# [id number] Debbie Polk PA-C LAB - BLOOD [place] [address], from Last 3 Months or Most Recently Relevant to Health Maintenance Insurance [facility] Care Teams Senior Enlisted Advisor Relationship Specialty Start Date End Date Debbie Polk PA-C [address] [place] [phone] PCP - General 02/12/13
== END 2024-10-08 13:35 | disposition home or self-care (01) ==
LOC: HO.US 13:34
PROVIDERS: PCP Physician Assistant; Visit Provider Surgery Vascular Surgery
DX: I83.11 Varicose veins of right lower extremity with inflammation (principal)
CPT/HCPCS: 93970

== ENCOUNTER → 2024-10-08 13:36 | Outpatient (BNV) | payer OTHER, SELFPAY | PROVIDERS: PCP Physician Assistant; Visit Provider Radiology Diagnostic Radiology | DX: I83.813 Varicose veins of bilateral lower extremities with pain (principal) | CPT/HCPCS: 93970 ==

== ENCOUNTER 2024-10-19 11:11 | Outpatient (AMB) | payer OTHER, SELFPAY ==
--- NOTE | 2024-10-19 11:21 | A.OFFVIS_ITS ---
Intake Visit Reasons: follow up s/p 10/08/24 Intake Note: Patient presents for follow up US. No complaints. Accompanied by: Daughter Allergies No Known Allergies Allergy (Verified 10/19/24 11:22) HPI HPI follow up s/p 10/08/24: Details: Very pleasant 69-year-old female presents for evaluation regarding lower extremity swelling. She had initially presented because of swelling and balance issues. At the current time she appears to be doing well and has had a follow- up with ENT. She does have some lower extremity mild swelling. She now presents for follow-up with venous insufficiency testing. COUNT INCLUDES THE [facility] Medical History Headache Cervicalgia Insomnia Depression Arthritis HTN (hypertension) Review of Systems Const All systems reviewed & are unremarkable except as noted in HPI and below Reports no additional complaints ENT Reports Normal hearing present Card Denies chest pain, Denies chest pain at rest, Denies chest pain with activity and Denies pedal edema Resp Denies cough GI Denies abdominal pain Musc Denies abnormal gait, Denies muscle cramps and Denies radiating pain into limb Skin/Breast Denies skin ulcer and Denies wounds Neuro Reports Normal hearing present and Denies abnormal gait Psych Reports no additional complaints Physical Exam Const General: cooperative, healthy appearing and comfortable Orientation/consciousness: oriented to person, oriented to place and oriented to time HEENT Head: Yes normal to inspection Neck Neck: Yes normal visual inspection Carotids: no bruits Chest Chest palpation & inspection: normal inspection of the chest Resp Effort & Inspection: normal respiratory effort and able to speak in complete sentences Auscultation: clear to auscultation bilaterally, no crackles, no rales, no rhonchi and no wheezes Cardio Rate: regular rate Rhythm: regular rhythm Heart sounds: S1 normal heart sound present and S2 normal heart sound present Bruits: no carotid bruits Peripheral pulses: Peripheral pulses 2+ throughout GI Inspection: Yes normal to inspection Skin Wounds: no wounds Hair: normal Neuro General: oriented to person, oriented to place and oriented to time Cranial nerves: Yes CN's II-XII intact bilaterally and Yes Normal hearing present Cognition (Neuro): normal cognition Motor exam (neuro): 5/5 motor strength present throughout Extrem Other: venous exam: No significant superficial varicosities or spider telangie ctasias, minimal edema General: No clubbing, No cyanosis and No edema Psych Appearance: grossly normal Mental Status: mental status grossly normal Speech and movement: Normal speech and movement present Results Reviewed Results Reviewed: Brief summary of venous insufficiency testing is as follows: right great saphenous vein: Mildly positive but vein small in caliber at calf right small saphenous vein: negative right accessory vein: none present left great saphenous vein: Mildly positive but vein small in caliber left small saphenous vein: negative left accessory vein: none present Please note there is no evidence of any venous aneurysms or significant tortuosity Assessment & Plan Assessment & Plan (1) Varicose veins of right lower extremity with inflammation: Code(s): I83.11 - Varicose veins of right lower extremity with inflammation Category: Medical Plan: In short patient does have some lower extremity swelling but her veins appeared to be mildly refluxing although small in caliber. Unfortunately this is too small to be amenable to treatment. At the current time would only recommend conservative measures including compression elevation and exercise. The patient will follow up with us on an as-needed basis. Thank you for allowing us to assist in her care. If there are any questions or concerns please do not hesitate to contact us. Coding Level of Care Code Est Pt Level 4 (00305) Diagnoses Varicose veins of right lower extremity with inflammation I83.11
--- OUTSIDE RECORDS SUMMARY | 2024-10-19 12:49 | XMS_ITS | Clinical Summary ---
Author Organization [facility] Address [address] [place] [address] Care Team Providers Care Camera Operator Name Role Phone Debbie Polk PA-C Primary Care Provider [phone] Source Comments PLEASE NOTE, if this patient [...] AFECTADA DOS VECES AL WILDER 28 g 10/16/19 22 Active acetaminophen (MAPAP ARTHRITIS PAIN) 650 mg CR tabletIndicati ons:Thoracic disc disease TOME DENNY TABLETA ANDREW VECES AL WILDER 90 Tablet 6 03/25/20 22 Active diclofenac sodium (VOLTAREN) 1 % gelIndications :Arthritis of knee, right APPLY 4 GM TWICE DAILY TO BOTH KNEES 300 g 11 03/25/20 22 Active zolpidem (AMBIEN) 5 mg tablet Take 5 mg by mouth 10/24/19 22 Active fluticasone (FLONASE) 50 mcg/actuation nasal sprayIndicatio ns:Viral upper respiratory tract infection TOME DENNY INHALACION INTO EACH NOSTRIL TODOS [place] FRYE 48 mL 1 04/15/20 22 Active LORazepam (ATIVAN) 1 mg tabletIndicati ons:Primary insomnia 08/21/19 23 Active MISCELLANEOUS MEDICAL SUPPLY MISCIndication s:Coronary artery disease involving [place] coronary artery of [place] heart with other form of angina pectoris ([facility] V24) by miscellaneous route daily. Cool mist humidifier, disp 1, lifetime need, dx CAD 1 Each 01/18/20 23 Active diphenhydrAMIN E (BENADRYL) 25 mg capsuleIndicat ions:Adverse effect of vaccine, initial encounter,Xavi rgic reaction, initial encounter Take 1 Capsule by mouth every 6 (six) hours as needed for itching 15 Capsule 01/23/20 23 Active hydrOXYzine HCL (ATARAX) 25 mg tabletIndicati ons:Adverse effect of vaccine, initial encounter,Xavi rgic reaction, initial encounter TAKE 1 TABLET BY MOUTH 3 TIMES A DAY EVERY DAY. USE THIS MEDICINE NEEDED FOR ITCHING. 90 Tablet 2 07/28/19 24 Active melatonin 3 mg tabletIndicati ons:Primary insomnia Take 1 Tablet by mouth nightly at bedtime as needed for sleep 90 Tablet 1 07/28/19 24 Active atorvastatin (LIPITOR) 80 mg tabletIndicati ons:Hyperlipem ia, mixed TAKE 1 TABLET BY MOUTH DAILY AT BEDTIME 90 Tablet 3 11/28/19 24 Active pantoprazole (PROTONIX) 40 mg EC tabletIndicati ons:Epigastric pain,Nausea TAKE 1 TABLET BY MOUTH DAILY 90 Tablet 3 11/28/19 24 Active plecanatide (TRULANCE) 3 mg tab Take 1 Tablet by mouth daily. 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 30 Tablet 2 03/26/20 24 Active MISCELLANEOUS MEDICAL SUPPLY MISC by miscellaneous route daily. OMRON automatic blood pressure monitor, disp1,lifetime need, dx labile BP, HTn 1 Each 05/18/19 25 Active gabapentin (NEURONTIN) 300 mg capsuleIndicat ions:Primary insomnia TAKE 1 CAPSULE BY MOUTH AT BEDTIME. 90 Capsule 1 05/25/19 25 Active candesartan (ATACAND) 16 mg tabletIndicati ons:Mixed headache,Hyper tension, essential, benign Take 1 Tablet by mouth nightly at bedtime 90 Tablet 3 06/16/19 25 Active ferrous sulfate 325 mg (65 mg iron) EC tabletIndicati ons:Mild anemia Take 1 Tablet by mouth once daily with breakfast 90 Tablet 1 07/07/19 25 Active ascorbic acid, vitamin C, (VITAMIN C) 250 mg tabletIndicati ons:Mild anemia Take 1 Tablet by mouth once daily with breakfast Take with the IRON tabs 90 Tablet 1 07/07/19 25 Active MISCELLANEOUS MEDICAL SUPPLY MISC by miscellaneous route daily 4 wheel rollator with seat, disp1, lifetime need, knee arthritis 1 Each 07/07/19 25 Active MISCELLANEOUS MEDICAL SUPPLY MISC by miscellaneous route daily SALONPAS, disp 90/month, dx low back pain 90 Each 11 07/07/19 25 Active amLODIPine (NORVASC) 2.5 mg tabletIndicati ons:Hypertensi on, essential, benign Take 1 Tablet by mouth once daily 90 Tablet 3 07/14/19 25 Active FLUoxetine (PROZAC) 20 mg capsuleIndicat ions:Primary insomnia TAKE 3 CAPSULES BY MOUTH DAILY IN THE MORNING FOR MMD/ANXIETY. 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 ([facility] V24) TAKE 1 TABLET BY MOUTH ONCE DAILY 90 Tablet 3 08/13/19 25 Active furosemide (LASIX) 20 mg tabletIndicati ons:Coronary artery disease involving [place] coronary artery of [place] heart with other form of angina pectoris ([facility] V24),MALDONADO (dyspnea on exertion) TAKE 1 TABLET BY MOUTH ONCE DAILY 90 Tablet 2 10/11/19 25 Active furosemide (LASIX) 20 mg tabletIndicati ons:Coronary artery disease involving [place] coronary artery of [place] heart with other form of angina pectoris (PACE-HCC V24),MALDONADO (dyspnea on exertion) TAKE 1 TABLET BY MOUTH DAILY. 90 Tablet 2 01/30/20 24 2024 Discontinued Active Problems Problem Noted Date [...] August 31, 2018 10:05 EDT Encounter info: [id number], [facility], One Time OP, 08/29/2018 [...] 3. No focal worrisome abnormality seen. WSN: [id number] Signature Line Dictated By: Carlos Shields MD [...] on November 18, 2016 9:50 Encounter info: [id number], [facility], One Time OP, 11/18/2016 - 11/18/2016 Contributor system: Hyglos * Final Report * Echo Complete-Doppler, Colorflow, M-Mode Transthoracic Echocardiography Report (TTE) Patient Demographics Patient Name PLACIDO FULLER Date of Study 11/18/2016 Corporate Gender Female Facility Race Ethnicity or Date of 1955 Height: 62 inches Age 61 year(s) Weight: 145 pounds Accession Number [id number] BSA: 1.67 m2 Room Number BMI: 26.52 kg/m2 Referring Physician Nayely VALLEJO Interpreting Joseph Chacko MD Physician Outpatient Program Coordinator Loyd Marquez RCS Indications Peripheral edema. Clinical [...] cm/s PV Peak Gradient: 2.5 mmHg E/Med E':6.80777 E/Lat E':7.153616 Cardiac Anatomy Left Ventricle/Interventricular Septum The left [...] on 08 June 2014 23:26 Encounter info: [id number], [facility], Disch Obv, 06/08/2014 - 06/10/2014 * [...] month followup it would be recommended. Examination 88445. Thank you for allowing me to participate [...] on 18 November 2014 11:51 Encounter info: [id number], [facility], Office Visit, 11/18/2014 - 11/25/2014 Contributor system: NUANCE * Preliminary Report * Patient Letter (Unverified) PATIENT LETTER DATE:11/18/2014 [place] [address] Dear Diann Lewis was seen in cardiac clinic for follow-up with a historic interpreter. As you know, she is a 59-year-old [...] Transcribed: 11/18/2014 14:19:27 Transcribed by: ALLAN DocID: [id number] PRELIMINARY REPORT UNLESS MANUALLY/ELECTRONICALLY SIGNED CC:Debbie Polk [facility] [address] [place], [address] History of tobacco use, quit 201103/30/2013 Hypertension, essential, benign 03/30/2013 Hyperlipemia, mixed 03/30/2013 H/O colonoscopy 09/201508/13/2007 Overview (02/01/2016): Result type: Histology Result date: 19 Sep 2015 13:06 Result status: Auth (Verified) Result title: Performed by: Jarrell Amos MD on 19 Sep 2015 13:06 Verified by: Jarrell Amos MD on 19 Sep 2015 13:06 Encounter info: [id number], [facility] 09/19/2015 - 09/19/2015 Contributor system: Open-Xchange * Final Report * Patient Name: PLACIDO [...] ? 3 , eoe. (VC)* Phone #: [phone], On-Call Pathologist: [id number] Gastritis Overview (01/26/2021): Result type: Histology Result date: 12 August 2006 8:00 Result status: Auth (Verified) Result title: Performed by: [email or web address] -UNKNOWN, PERSONNEL on 12 August 2006 8:00 Verified by: [email or web address] -UNKNOWN, PERSONNEL on 12 August 2006 8:00 Encounter info: [id number], [facility], 08/12/2006 - 08/12/2006 Contributor system: Open-Xchange * Final Report * Patient Name: PLACIDO FULLER Lab Accesssion #: [id number] Patient : 1955 (Age: 51) Collection Date: [...] immunohistochemistry and in- situ hybridization laboratories at [facility]. They may not have been cleared [...] Primary Pathologist: Karen Potts M.D. Phone #: [phone], On-Call Pathologist: [id number] Chronic midline low back pain without sciatica Encounters Date Type Department Care Team Description 09/29/2024 10:00 AM EDT Office Visit [address] [address] Debbie Polk PA-C Coronary artery disease involving [place] coronary artery of [place] heart with other form of angina pectoris (PACE-HCC V24) (Primary Dx); Hyperlipemia, mixed; Hypertension, essential, benign; Normocytic anemia; Mild vitamin D deficiency; Elevated glucose; Chronic right shoulder pain from Last 3 Months Immunizations Immunization Administration [...] Done Comments Medicare Annual Wellness Visit 1971 Imm-DTaP/Tdap/Td (1 - Tdap) 02/04/1996 02/03/1996 CT Colonography 1998 Fecal DNA 1998 Flexible Sigmoidoscopy 1998 FIT/gFOBT 07/09/2015 07/08/2014 (Decl ined), 05/11/2013 (Declined) Imm-Zoster, Recombinant (2 of 2) 08/07/2021 06/12/2021 [id number] ( season) 2024 05/01/2021, 08/19/2020, 07/21/2020 Postponed [...] 025 9:55 AM EDT) No Brandin Fuentes, PharmD Procedures Procedure Name Priority Date/Time Associated Diagnosis Comments IMAGING SCANNED DOCUMENT 10/08/2024 3:00 AM EDT LACTATE DEHYDROGENASE LDH Routine 09/29/2024 10:22 AM EDT HGA1C W/EAG Routine 09/29/2024 10:22 AM EDT Coronary artery disease involving [place] coronary artery of [place] heart with other form of angina pectoris (PACE-HCC V24) Hyperlipemia, mixed Hypertension, essential, benign Normocytic anemia Mild vitamin D deficiency Elevated glucose HEPATIC FUNCTION PANEL Routine 10:22 AM EDT Coronary artery disease involving [place] coronary artery of [place] heart with other form of angina pectoris (PACE-HCC V24) Hyperlipemia, mixed Hypertension, essential, benign Normocytic anemia Mild vitamin D deficiency Elevated glucose BLOOD COUNT RETICULOCYTE AUTOMATED Routine 09/29/2024 10:22 AM EDT Coronary artery disease involving [place] coronary artery of [place] heart with other form of angina pectoris (PACE-HCC V24) Hyperlipemia, mixed Hypertension, essential, benign Normocytic anemia Mild vitamin D deficiency Elevated glucose VITAMIN B12 & FOLATE Routine 09/29/2024 10:22 AM EDT Coronary artery disease involving [place] coronary artery of [place] heart with other form of angina pectoris (PACE-HCC V24) Hyperlipemia, mixed Hypertension, essential, benign Normocytic anemia Mild vitamin D deficiency Elevated glucose IRON, TIBC, FERRITIN PANEL Routine 09/29/2024 10:22 AM EDT Coronary artery disease involving [place] coronary artery of [place] heart with other form of angina pectoris (PACE-HCC V24) Hyperlipemia, mixed Hypertension, essential, benign Normocytic anemia Mild vitamin D deficiency Elevated glucose BLOOD COUNT COMPLETE AUTO&AUTO DIFRNTL WBC Routine 09/29/2024 10:22 AM EDT Coronary artery 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 10/08/2024 3:00 AM EDT us Debbie Polk PA-C SCAN IMAGING Final Result * (ABNORMAL) HGA1C W/EAG Routine (09/29/2024 10:22 AM EDT) HEMOGLOBIN A1C 5.8(H) <5.7 % [facility] Comment: For someone without known diabetes, a [...] diabetes for children. EAG (MG/DL) 120 mg/dL [facility] EAG (MMOL/L) 6.6 mmol/L [facility] Blood Blood / Unknown 09/29/2024 1 0:22 AM EDT 09/29/2024 10:23 AM EDT Narrative [employer] - 09/30/2024 7:37 AM EDT SPECIALIZED COLLECTION. PATIENT REFERRED TO ALTERNATE SITE. us Debbie Polk PA-C LAB - BLOOD DRAW Edited Resu lt - Final Performing Organization Address [facility] Co de Phone Number [employer] [address] [address], [employer] [address] [phone] * (ABNORMAL) IRON, TIBC, FERRITIN PANEL Routine (09/29/2024 10:22 AM EDT) [facility] FERRITIN 26 16 - 288 ng/mL [facility] IRON, TOTAL 44(L) 45 - 160 mcg/dL [facility] IRON BINDING CAPACITY 303 250 - 450 mcg/dL (calc) [facility] % SATURATION 15(L) 16 - 45 % (calc) [facility] Blood Blood / Unknown 09/29/2024 1 0:22 AM EDT 09/29/2024 10:23 AM EDT Narrative [employer] - 09/30/2024 7:37 AM EDT SPECIALIZED COLLECTION. PATIENT REFERRED TO ALTERNATE SITE. Debbie Polk PA-C LAB - BLOOD DRAW Final Resul t Performing Organization Address [facility] Co de Phone Number [employer] [address] [address], [employer] [address] [place] [phone] * VITAMIN B12 & FOLATE Routine (09/29/2024 10:22 AM EDT) [facility] VITAMIN B12 304 200 - 1,100 pg/mL [facility] Comment: Please Note: Although the reference range for vitamin B12 is 200-1100 pg/mL, it has been reported that between 5 and 10% of patients with values between 200 and 400 pg/mL may experience neuropsychiatric and hematologic abnormalities due to occult B12 deficiency; less than 1% of patients with values above 400 pg/mL will have symptoms. FOLATE, SERUM 14.1 5.5 ng/mL [facility] Comment: ? Reference Range ? Low: ? <3.4 ? Borderline: ?3.4-5.4 ? Normal: ?>5.4 Blood Blood / Unknown 09/29/2024 1 0:22 AM EDT 09/29/2024 10:23 AM EDT Narrative [employer] - 09/30/2024 7:37 AM EDT SPECIALIZED COLLECTION. PATIENT REFERRED TO ALTERNATE SITE. Debbie Polk PA-C LAB - BLOOD DRAW Edited Resu lt - Final Performing Organization Address [facility] Co de Phone Number [employer] [address] [place] [phone], [employer] [place] [employer] [address] [place] [phone] * BLOOD COUNT RETICULOCYTE AUTOMATED Routine (09/29/2024 10:22 AM EDT) RETICULOCYTE COUNT, AUTOMATED 1.2 % [employer] RETICULOCYTE, ABSOLUTE 42,120 20,000 - 80,000 cells/uL [facility] Blood Blood / Unknown 09/29/2024 1 0:22 AM EDT 09/29/2024 10:23 AM EDT Narrative [employer] - 09/30/2024 7:37 AM EDT SPECIALIZED COLLECTION. PATIENT REFERRED TO ALTERNATE SITE. us Debbie Polk PA-C LAB - BLOOD DRAW Final Resul t Performing Organization Address [facility] Co de Phone Number [employer] [address] [place] [phone], [place] [address] [place] [phone] * (ABNORMAL) BLOOD COUNT COMPLETE AUTO&AUTO DIFRNTL WBC Routine (09/29/2024 10:22 AM EDT) WHITE BLOOD CELL COUNT 5.8 3.8 - 10.8 Thousand/ uL [facility] RED BLOOD CELL COUNT 3.51(L) 3.80 - 5.10 Million/u L [facility] HEMOGLOBIN 10.9(L) 11.7 - 15.5 g/dL [facility] HEMATOCRIT 32.9(L) 35.0 - 45.0 % [employer] MCV 93.7 80.0 - 100.0 fL [employer] MCH 31.1 27.0 - 33.0 pg [facility] MCHC 33.1 32.0 - 36.0 g/dL [facility] Comment: For adults, a slight decrease in the calculated MCHC value (in the range of 30 to 32 g/dL) is most likely not clinically significant; however, it should be interpreted with caution in correlation with other red cell parameters and the patient's clinical condition. RDW 13.1 11.0 - 15.0 % [facility] PLATELET COUNT 179 140 - 400 Thousand/ uL [employer] MPV 10.9 7.5 - 12.5 fL [employer] ABSOLUTE NEUTROPHILS 4,043 1,500 - 7,800 cells/uL [employer] [employer] ABSOLUTE LYMPHOCYTES 1,067 850 - 3,900 cells/uL [employer] ABSOLUTE MONOCYTES 470 200 - 950 cells/uL [employer] ABSOLUTE EOSINOPHILS 191 15 - 500 cells/uL [employer] ABSOLUTE BASOPHILS 29 0 - 200 cells/uL [employer] NEUTROPHILS PCT 69.7 % [employer] [facility] LYMPHOCYTES 18.4 % [place] [facility] [employer] [facility] MONOCYTES 8.1 % [place] [facility] [employer] [facility] EOSINOPHILS 3.3 % [facility] AGNS[employer] BASOPHILS 0.5 % [employer] DIAG [employer] [facility] Blood Blood / Unknown 09/29/2024 1 0:22 AM EDT 09/29/2024 10:23 AM EDT Narrative [employer] - 09/30/2024 7:37 AM EDT SPECIALIZED COLLECTION. PATIENT REFERRED TO ALTERNATE SITE. Debbie Polk PA-C LAB - BLOOD DRAW Edited Resu lt - Final [employer] [facility] [address] [address], [employer] [address] [phone] * LACTATE DEHYDROGENASE LDH Routine (09/29/2024 10:22 AM EDT) Pathologist [facility] LD 159 120 - 250 U/L [employer] 09/29/2024 10:2 2 AM EDT 09/29/2024 10:23 AM EDT Narrative [employer] [facility] - 09/30/2024 7:37 AM EDT SPECIALIZED COLLECTION. PATIENT REFERRED TO ALTERNATE SITE. us Debbie Polk PA-C LAB - BLOOD DRAW Final Resul t Performing Organization Address City/[facility] de Phone Number [employer] [address] [address], [employer] [address] [phone] * HEPATIC FUNCTION PANEL Routine (09/29/2024 10:22 AM EDT) [facility] PROTEIN, TOTAL 6.3 6.1 - 8.1 g/dL [facility] ALBUMIN 3.9 3.6 - 5.1 g/dL [employer] GLOBULIN 2.4 1.9 - 3.7 g/dL (calc) [employer] ALBUMIN/GLOBULIN RATIO 1.6 1.0 - 2.5 (calc) [employer] BILIRUBIN, TOTAL 0.4 0.2 - 1.2 mg/dL [employer] BILIRUBIN, DIRECT 0.1 0.0 - 0.2 mg/dL [employer] BILIRUBIN, INDIRECT 0.3 0.2 - 1.2 mg/dL (calc) [employer] ALKALINE PHOSPHATASE 79 37 - 153 U/L [employer] AST 20 10 - 35 U/L [employer] ALT 12 6 - 29 U/L [employer] Blood Blood / Unknown 09/29/2024 1 0:22 AM EDT 09/29/2024 10:23 AM EDT Narrative [employer] [facility] - 09/30/2024 7:37 AM EDT SPECIALIZED COLLECTION. PATIENT REFERRED TO ALTERNATE SITE. us Debbie Polk PA-C LAB - BLOOD DRAW Final Resul t Performing Organization Address City/[facility]/ZIP Co de Phone Number [facility] [address] [place] [address], [facility] [address] [place] [phone] * SCREENING MAMMOGRAM BILATERAL (09/15/2024 3:00 AM EDT) 09/15/2024 3:00 AM EDT Debbie Sotelowali PA-C IMG MAMMO Final Result * OTHER ORDERS SCANNED DOCUMENT (08/10/2024 3:00 AM EDT) 08/10/2024 3:00 AM EDT Debbie Sotelokin PA-C SCAN OTHER ORDERS Final Resu lt * REFERRAL SCANNED DOCUMENT (07/22/2024 3:00 AM EDT) 07/22/2024 3:00 AM EDT [employer] Debbie Lukin PA-C SCAN REFERRAL Final Result * (ABNORMAL) LIPID PANEL (01/27/2024 11:53 AM EDT) CHOLESTEROL, TOTAL 183 <200 mg/dL [facility] HDL CHOLESTEROL 55 > OR = 50 mg/dL [facility] TRIGLYCERIDES 142 <150 mg/dL [facility] LDL-CHOLESTEROL 104(H) 99 mg/dL (calc) [facility] Comment: Reference range: <100 Desirable range <100 mg/dL for primary prevention; ?? <70 mg/dL for patients with CHD or diabetic patients with > or = 2 CHD risk factors. LDL-C is now calculated using the Vasyl calculation, which is a validated novel method providing better accuracy than the Friedewald equation in the estimation of LDL-C. Farhan LEMUS et al. LYN. 2013;310(19): 7839-2694 (http://education.Gennio.DocSpera/faq/ITP107) CHOL/HDLC RATIO 3.3 <5.0 (calc) [facility] NON-HDL CHOLESTEROL 128 <130 mg/dL (calc) [facility] Comment: For patients with diabetes plus 1 major ASCVD risk factor, treating to a non-HDL-C goal of <100 mg/dL (LDL-C of <70 mg/dL) is considered a therapeutic option. Blood Blood / Unknown 01/27/2024 1 1:53 AM EDT 01/27/2024 11:54 AM EDT Narrative [employer] [facility] [place] - 01/29/2024 7:39 PM EDT FASTING:NO us Debbie Polk PA-C LAB - BLOOD DRAW Final Resul t [facility] [address] [place] [address], [facility] [address] [place] [phone] * DXA BONE DENSITY STUDY 1/> SITES AXIAL SKEL (05/15/2023 3:00 AM EST) 05/15/2023 3:00 AM EST us Debbie Polk PA-C IMG DXA Final Result * HISTORIC COLONOSCOPY (07/04/2022 3:00 AM EST) 07/04/2022 3:00 AM EST us Debbie Polk PA-C PROCEDURES Edited Resul t - Final * (ABNORMAL) HEPATITIS A,B,C PANEL (12/09/2018 11:11 AM EDT) HEPATITIS B SURFACE ANTIGEN NEGATIVE NEGATIVE [facility] Comment: Over the counter supplements containing high doses of biotin may interfere with this assay. ??If interference is suspected, patients shoud be retested after refraining from biotin supplements for 72 hours. HEPATITIS B SURFACE ANTIBODY NEGATIVE NEGATIVE [facility] HEPATITIS C VIRUS DIAGNOSTIC NEGATIVE NEGATIVE [facility] HEPATITIS A ANTIBODY TOTAL POSITIVE(A) NEGATIVE [facility] Comment: Over the counter supplements containing high doses of biotin may interfere with this assay. ??If interference is suspected, patients shoud be retested after refraining from biotin supplements for 72 hours. HEPATITIS B CORE ANTIBODY NEGATIVE NEGATIVE [facility] [employer] [facility] Blood specimen (specimen) Blood / Unknown 12/09/2018 11:11 AM EDT 12/09/2018 11:15 AM EDT Narrative [facility] [employer] - 12/09/2018 4:05 PM EDT [employer], a member of [address] [address] Language Pathologist - Candice Holden MD [place] ID [id number] ORD# [id number] us Debbie Polk PA-C LAB - BLOOD DRAW Edited Resu lt - Final [facility] [employer] [address], from Last 3 Months or Most Recently Relevant to Health Maintenance [facility] Care Teams Camera Operator Relationship Specialty Start Date End Date Debbie Polk PA-C [address] [place] [phone] PCP - General 02/12/13
== END 2024-10-19 11:39 | disposition home or self-care (01) ==
LOC: HO.HVS 11:12
PROVIDERS: PCP Physician Assistant; Visit Provider Surgery Vascular Surgery
DX: I83.11 Varicose veins of right lower extremity with inflammation (principal)
CPT/HCPCS: 99214

== ENCOUNTER → 2024-10-19 11:11 | Outpatient (BNVA) | payer OTHER, SELFPAY | PROVIDERS: PCP Physician Assistant; Visit Provider Surgery Vascular Surgery | DX: I83.11 Varicose veins of right lower extremity with inflammation (principal) | CPT/HCPCS: 99212 ==

== ENCOUNTER 2024-11-25 17:37 | Emergency (ER) | payer OTHER, SELFPAY ==
[2024-11-25] VITALS (8 sets, daily range): BP systolic 177–197; BP diastolic 64–86; PULSE 55–72; RESP 11–18; TEMP 36.4–36.6; O2SAT 96–99; BMI 27.4
--- NOTE | 2024-11-25 | ECG_ITS ---
Test Reason : cp Blood Pressure : */* mmHG Vent. Rate : 62 BPM Atrial Rate : 62 BPM P-R Int : 144 ms QRS Dur : 88 ms QT Int : 374 ms P-R-T Axes : 40 39 37 degrees QTcB Int : 379 ms Normal sinus rhythm Normal ECG When compared with ECG of 14-Apr-2024 14:31, No significant change was found Referred By: Generic ED Physician Electronically Signed By: Jatin Vidales
--- NOTE | ~2024-11-25 | XR_ITS ---
CLINICAL HISTORY: chest pain 1 view chest x-ray Comparison: CR/SR - XR CHEST 1 VIEW - 04/14/24 14:20 EST Findings: The lungs are clear. Normal size heart. No acute fracture. IMPRESSION: 1. No acute findings. This document has been electronically signed by: Nancie Hammond MD on 11/25/2024 18:46:18
--- NOTE | 2024-11-25 17:57 | ED.CHESTPAIN ---
HPI - Chest Pain General Chief Complaint: Chest Pain Stated Complaint: chest pain / normal ekg 1 hour ago Time Seen by Provider: 11/25/24 18:05 Source: patient Mode of arrival: ambulatory Limitations: language barrier ([employer] Supervisor services utilized) History of Present Illness ED Provider: Ovi VALLEJO HPI narrative: The patient is a 69-year-old female with history of CAD with 2 previous stents placed in 2010 who presents to the ED for evaluation of chest pain. The patient reports she woke this morning with back pain which radiated into her chest, patient was seen by her recoater and reported ongoing chest pain for approximately 2 hours at which time patient's recoater referred her to the ED for anginal rule out. The patient reports pain has now subsided, denies any acute somatic complaint. The patient reports when the pain was occurring it was exacerbated by movement, denies associated diaphoresis, nausea, vomiting, cough, hemoptysis, pleurisy, abdominal pain, urinary symptoms or other associated complaint. The patient denies recent fever/chills, URI symptoms, sick contacts, fall, or other trauma. The patient reports 4 or 5 days ago she experienced some nausea without associated pain. Patient reports she suffers from chronic constipation but did move her bowels well yesterday. The patient is noted to be hypertensive upon arrival to the ED, the patient reports she receives her medications in blister pack cards, reports she recently lost her medications and has been without any of her blood pressure medications since Friday of this week. The patient contacted her pharmacy and did receive refills of her medications today around 14:00. Related Data Home Medications ?Medication ?Instructions ?Recorded ?Confirmed aspirin 81 mg tablet,delayed 81 mg PO DAILY 04/19/24 07/22/24 release diclofenac sodium 1 % topical gel 4 g topical QID 04/19/24 07/22/24 (Arthritis Pain (diclofenac)) fluoxetine 20 mg capsule 60 mg PO DAILY 04/19/24 07/22/24 fluticasone furoate 50 inhalation 04/19/24 07/22/24 mcg/actuation blister powder for inhalation furosemide 20 mg tablet 20 mg PO DAILY 04/19/24 07/22/24 hydrocortisone 2.5 % topical cream 1 appl topical BID PRN 04/19/24 07/22/24 hydroxyzine HCl 25 mg tablet 25 mg PO TID PRN 04/19/24 07/22/24 plecanatide 3 mg tablet (Trulance) 3 mg PO DAILY 04/19/24 07/22/24 sumatriptan succinate 25 mg tablet 25 mg PO Q2-4H PRN 04/19/24 07/22/24 zolpidem 5 mg tablet 5 mg PO BEDTIME 04/19/24 amlodipine 5 mg tablet 2.5 mg PO DAILY 07/22/24 07/22/24 candesartan 16 mg tablet 16 mg PO DAILY 07/22/24 07/22/24 ferrous sulfate 325 mg (65 mg 325 mg PO DAILY 07/22/24 07/22/24 iron) tablet,delayed release metoprolol succinate 25 mg 25 mg PO BID 07/22/24 07/22/24 tablet,extended release 24 hr Previous Rx's ?Medication ?Instructions ?Recorded baclofen 10 mg tablet 20 mg (2 x 10 mg) PO BEDTIME #60 11/03/24 tabs Allergies Allergy/AdvReac Type Severity Reaction Status Date / Time No Known Allergies Allergy Verified 11/25/24 17:59 Review of Systems Review of Systems: Yes all other systems are reviewed and are negative PMFSH Past Medical History Medical History Headache Cervicalgia Insomnia Depression Arthritis HTN (hypertension) Social History Social History Smoked in Last 30 Days: No Use of substances other than those prescribed or required for medical reasons: No Advance Directives: Yes Advance Directives Information Provided: No Advance Directives on File: No Do you have a plan to hurt others: No Plan Physical Exam Vital Signs: Vital Signs: Last Vital Signs Temp 97.8 F 11/25/24 21:46 Pulse 57 11/25/24 22:14 Resp 12 11/25/24 22:14 BP 186/78 H 11/25/24 22:14 Pulse Ox 96 11/25/24 22:14 O2 Del Method Room Air 11/25/24 22:14 BMI result Body Mass Index 27.4 CONSTITUTIONAL: The patient appears non-toxic, well nourished and in no acute distress. Vital signs as documented. HEAD: Atraumatic, normocephalic. EYES: EOMs grossly intact, pupils equal, conjunctiva clear, no exudate. ENT: Nares patent, no discharge. Airway patent, no audible stridor, visible mucosa is pink and moist without noted lesions. NECK: Trachea is midline, no obvious masses or gross abnormalities. CHEST: Symmetric movement, normal appearance. No tenderness to palpation or crepitus. LUNGS: LS present and CTAB, no w/r/r. Non-labored work of breathing. CARDIAC: Regular Rhythm, S1/S2 appreciated, no murmurs, rubs or gallops. ABDOMEN: Abdomen soft and non-tender x4 quadrants, no palpable masses or organomegaly. No CVAT bilaterally. BACK: No midline or other bony tenderness. No crepitus. Back pain is reproduced with pushing against resistance with the upper extremities, denies reproduction of chest pain. : Deferred. EXTREMITIES: Normal tone, moves all extremities spontaneously without reported pain. No obvious acute injury or deformity noted. NEURO: Alert and oriented x3, CN II-XII appear grossly intact. Cerebellar Functioning grossly intact. No obvious sensory or motor deficits. Speech clear and appropriate. PSYCH: normal affect, appropriate eye contact, fluid speech, with appropriate response to questioning. No reported suicidality or homicidality. SKIN: Warm, dry, color appropriate, normal turgor. No rashes noted. Course Course Course Narrative: This is an RME: Additional HPI, ROS, PE not included below will be deferred to primary provider. RME assessment and note performed by: Mecca Dejesus PA-C 68 yo female with PMH of HLD, HTN managed by Lisinopril / HCTZ, metoprolol, amlodipine, edema on lasix 20mg, anxiety on lorazepam who presents to the ED with complaints of chest pain and back pain started today at 11:00AM, lasted for 2-3 hours. Got better after getting to Dr. Zepeda. I received an expect from [facility], and spoke to Dr. Zepeda who stated that she does have a history of PID with multiple vessel disease, catheterization in 2010. Patient presented to the office complaining of 2 hours of chest pain with involvement of her Beau neck. He is concerned for possible 2 hours of unstable angina versus musculoskeletal pain. She was pain-free in his office. EKG was normal. He does admit that the story was changing throughout the visit. He advised her to go to the ER at [facility] however she wanted to come here. Plan: Labs, EKG, chest x-ray, further ER evaluation needed. Medications Administered Discontinued Medications Generic Name Dose Route Start Last Admin Trade Name Wanda PRN Reason Stop Dose Admin Amlodipine Besylate 5 mg 11/25/24 19:22 11/25/24 19:41 Amlodipine Besylate 5 Mg Tablet PO 11/25/24 19:23 5 mg ONCE ONE Administration Protocol Metoprolol Succinate 25 mg 11/25/24 19:22 11/25/24 19:40 Metoprolol Succinate Er 25 Mg Tab.Er.24h PO 11/25/24 19:23 25 mg ONCE ONE Administration Protocol Medical Decision Making Medical Decision Making MDM Narrative: 7:04 PM 11/25/2024 (Tevin VALLEJO): The patient is a 69-year-old female with history of CAD presenting to the ED for evaluation of back pain and chest pain which began this morning but has since resolved after taking ibuprofen. The patient is chest pain-free in the ED. of note the patient has been without her regular medications for the past 4 days after losing or blister packs. The patient arrives to the ED hypertensive but without complaint. The patient's exam is reassuring, back pain he is reproduced with pushing against resistance with the upper extremities, patient's chest pain is not reproduced during the exam. The patient's EKG is nonischemic, chest x-ray shows no focal consolidation or other acute cardiopulmonary process. Patient's initial laboratory evaluation shows negative troponin, no anemia, leukocytosis, ZACK, or electrolyte abnormality. The patient will be monitored and a repeat troponin will be obtained, pending unremarkable repeat troponin the patient will be appropriate for discharge home. We will treat the patient's hypertension with her nighttime medications including metoprolol 25 mg ER, amlodipine 5 mg, and candesartan 16 mg. 7:24 PM 11/25/2024 (Tevin VALLEJO): Candesartan not available on formulary, we will treat with amlodipine and metoprolol. 9:32 PM 11/25/2024 (Tevin VALLEJO): The patient's repeat troponin has a delta change of 10 from 5 to 15. The patient reported she had 1 approximately 15 seconds twinge of pain in her chest which resolved spontaneously and has not returned, is currently chest pain-free. The patient has agreed to remain in the ED for a 3rd troponin at 22:45, if there is no increase in troponin noted on repeat exam, and no additional pain, the patient will be discharged home to follow up outpatient. If there is any additional uptrend in troponin the patient has been advised she will be admitted for additional cardiac workup. 11:10 PM 11/25/2024 (Tevin VALLEJO): Patient's 3rd troponin is flat at 16, no additional delta increased. The patient will be discharged to follow up with Cardiology and PCP. Admission/Observation Consideration of admission/observation: Escalation of care including admission/observation considered Lab Data MDM Lab Attestation statement: I reviewed the patient's lab results. 11/25/24 18:18 11/25/24 18:18 Labs: Lab Results 11/25/24 11/25/24 11/25/24 Range/Units 18:18 20:45 22:41 WBC 8.2 (4.8-10.8) X10*3/uL RBC 4.12 L (4.20-5.50) X10*6/uL Hgb 12.3 (12.0-16.0) g/dl Hct 37.1 (37.0-47.0) % MCV 90.0 (80.0-98.0) fL MCH 29.9 (27.0-33.0) pg MCHC 33.2 (31.0-35.0) g/dl RDW 13.2 (11.0-16.0) % Plt Count 172 D (160-400) X10*3/uL MPV 9.8 (9.4-12.3) fL Immature Gran % (Auto) 0.4 (0.0-0.4) % Neut % (Auto) 75.2 H (45-73) % Lymph % (Auto) 18.2 L (20-40) % [place] % (Auto) 4.5 (2-11) % Eos % (Auto) 1.2 (0-4) % Baso % (Auto) 0.5 (0-2) % Lymph # (Auto) 1.5 (1.2-4.9) X10*3/uL [place] # (Auto) 0.4 (0.1-1.2) X10*3/uL Eos # (Auto) 0.1 (0.0-0.4) X10*3/uL Baso # (Auto) 0.0 (0.0-0.2) X10*3/uL Abs Immat Gran (auto) 0.03 (0.00-0.03) X10*3/uL Absolute Neuts (auto) 6.1 (2.0-8.3) x10*3/uL Absolute Nucleated RBC 0.000 (0.0-0.012) X10*3/uL Nucleated RBC % (auto) 0.0 (0.0-0.2) /100WBC Sodium 141 (135-145) mmol/L Potassium 4.0 (3.3-5.1) mmol/L Chloride 107 (96-108) mmol/L Carbon Dioxide 24 (22-29) mmol/L Anion Gap 14 (12-20) BUN 17 H (9-16) mg/dL Creatinine 0.75 (0.5-1.4) mg/dL Estim Creat Clear Calc 59.8 Estimated GFR > 60 Random Glucose 95 (60-115) mg/dL Calcium 9.5 (8.4-10.2) mg/dL Magnesium 2.1 (1.6-2.6) mg/dL Total Bilirubin 0.3 (0.0-1.0) mg/dL Direct Bilirubin 0.1 (0.0-0.5) mg/dL AST 34 H (5-31) U/L ALT 13 (0-31) U/L Alkaline Phosphatase 92 (39-117) U/L Troponin I High Sens 5.7 15.1 D 16.8 (<3.5-17.0) ng/L B-Natriuretic Peptide 181 H (<100) pg/mL Total Protein 7.4 (6.5-8.0) g/dL Albumin 4.6 (3.5-5.0) g/dL Independent Interpretation I performed an independent interpretation of an: EKG (The patient's EKG shows sinus rhythm with a rate of 62, no evidence of acute ischemia, no ST elevation, no ectopy. QTC 379. Compared to previous on 04/14/2024 there are no acute morphology changes. ) Radiology Impression Discussion of test interpretation with radiology: I have reviewed the radiologist's reading. Radiologist Impression: 1 view chest x-ray Comparison: CR/SR - XR CHEST 1 VIEW - 04/14/24 14:20 EST Findings: The lungs are clear. Normal size heart. No acute fracture. IMPRESSION: 1. No acute findings. This document has been electronically signed by: Nancie Hammond MD on 11/25/2024 18:46:18 External Record Review External record reviewed: Outpatient record Prescription Management I considered prescription management with: Pain Medication Chronic Conditions Patient?s care impacted by: Hypertension Discharge Plan Discharge Clinical Impression: Atypical chest pain Patient Disposition: Home, Self-Care Instructions: Chest Pain (ED), Chest Wall Pain (ED) Additional Instructions: Thank you for choosing [facility]'s Emergency Department for your care today. Thankfully your laboratory evaluation, EKG, chest x-ray, and exam today are reassuring, there was no evidence of an acute cardiac, infectious, pulmonary, or metabolic cause for your pain. Seeing as your pain was worse with movement, and improved after ibuprofen, it is likely your pain was related to a musculoskeletal strain of your chest wall and/or back. At this time there is no indication for admission to the hospital or continued ED observation, and it is safe to discharge you home. You may take alternating (staggered) doses of ibuprofen 600mg and Tylenol 1000mg every 4 hours as needed for any additional pain. Please stay well hydrated and get plenty of rest. Please follow up with your recoater and your primary care physician for re-evaluation, additional management of your symptoms, and continued preventative care. If you do not have a primary care physician, please call the [facility] at [phone] to establish a new primary care physician. While waiting to establish your new primary care physician, you can call our Walk[facility]in [facility] at [phone] for non-emergency needs. Please return to the emergency department if you develop a severe or sudden change in your symptoms, a fever over 100.4 that does not improve with Tylenol or Ibuprofen, recurrent vomiting, or any other new or worsening symptoms or concerns. Prescriptions: No Action baclofen 10 mg tablet 20 mg PO BEDTIME Qty: 60 0RF aspirin 81 mg tablet,delayed release (DR/EC) 81 mg PO DAILY diclofenac sodium [Arthritis Pain (diclofenac)] 1 % gel 4 g topical QID Rx Instructions: apply to single knee, ankle, foot; for foot includes sole/toes/top of foot fluoxetine 20 mg capsule 60 mg PO DAILY fluticasone furoate 50 mcg/actuation blister with device inhalation furosemide 20 mg tablet 20 mg PO DAILY hydrocortisone 2.5 % cream 1 appl topical BID PRN hydroxyzine HCl 25 mg tablet 25 mg PO TID PRN sumatriptan succinate 25 mg tablet 25 mg PO Q2-4H PRN Rx Instructions: do not exceed 8 doses per 24 hrs Trulance 3 mg tablet 3 mg PO DAILY zolpidem 5 mg tablet 5 mg PO BEDTIME amlodipine 5 mg tablet 2.5 mg PO DAILY ferrous sulfate 325 mg (65 mg iron) tablet,delayed release (DR/EC) 325 mg PO DAILY metoprolol succinate 25 mg tablet extended release 24 hr 25 mg PO BID candesartan 16 mg tablet 16 mg PO DAILY Referrals: Debbie Polk PA [Primary Care Provider, Internal Medicine] Clinical Impression: Atypical chest pain Petar Zepeda MD [Physician, Cardiology] Clinical Impression: Atypical chest pain Print Language: Colombian
--- NOTE | 2024-11-25 18:02 | ECG_ITS ---
Test Reason : CP Blood Pressure : */* mmHG Vent. Rate : 64 BPM Atrial Rate : 64 BPM P-R Int : 168 ms QRS Dur : 80 ms QT Int : 386 ms P-R-T Axes : 54 38 38 degrees QTcB Int : 398 ms Normal sinus rhythm Normal ECG When compared with ECG of 25-Nov-2024 17:52, No significant change was found Referred By: Ovi Serra Electronically Signed By: Jatin Vidales
--- OUTSIDE RECORDS SUMMARY | 2024-11-25 18:13 | XMS_ITS | Clinical Summary ---
Author Organization [facility] Address [address] [place] [address] Care Team Providers Care Dope Firer Name Role Phone Debbie Polk PA-C Primary Care Provider [phone] Source Comments PLEASE NOTE, if this patient [...] MEDICAL SUPPLY MISCIndication s:Coronary artery disease involving muckleshoot coronary artery of muckleshoot heart with other form of angina pectoris ([facility] V24) by miscellaneous route daily. Cool mist [...] sleep 90 Tablet 1 07/28/19 24 Active plecanatide (TRULANCE) 3 mg tab Take 1 Tablet by mouth daily. For constipation 90 Tablet 3 03/01/20 24 Active loratadine (CLARITIN) 10 mg tabletIndicati [...] bedtime 90 Tablet 3 06/16/19 25 Active MISCELLANEOUS MEDICAL SUPPLY MISC by [...] mg DR tabletIndicati ons:Coronary artery disease involving muckleshoot coronary artery of muckleshoot heart with other form of angina pectoris ([facility]) TAKE 1 TABLET BY MOUTH ONCE DAILY 90 Tablet 3 08/13/19 25 Active furosemide (LASIX) 20 mg tabletIndicati ons:Coronary artery disease involving muckleshoot coronary artery of muckleshoot heart with other form of angina pectoris ([facility]),MALDONADO (dyspnea on exertion) TAKE 1 TABLET BY MOUTH ONCE DAILY 90 Tablet 2 10/11/19 25 Active atorvastatin (LIPITOR) 80 mg tabletIndicati ons:Hyperlipem ia, mixed TAKE 1 TABLET BY MOUTH DAILY AT BEDTIME 90 Tablet 3 11/04/19 25 Active pantoprazole (PROTONIX) 40 mg EC tabletIndicati ons:Epigastric pain,Nausea TAKE 1 TABLET BY MOUTH ONCE DAILY 90 Tablet 3 11/04/19 25 Active metoprolol succinate XL (TOPROL-XL) 25 mg 24 hr tabletIndicati ons:Coronary artery disease involving muckleshoot coronary artery of muckleshoot heart with other form of angina pectoris ([facility]) TAKE 1 TABLET BY MOUTH TWICE DAILY 180 Tablet 2 11/04/19 25 Active ferrous sulfate 325 mg (65 mg iron) EC tabletIndicati ons:Mild anemia TAKE 1 TABLET BY MOUTH DAILY WITH BREAKFAST. 90 Tablet 3 11/04/19 25 Active ascorbic acid, vitamin C, (VITAMIN C) 250 mg tabletIndicati ons:Mild anemia TAKE 1 TABLET BY MOUTH DAILY WITH BREAKFAST. TAKE WITH IRON. 90 Tablet 3 11/04/19 25 Active atorvastatin (LIPITOR) 80 mg tabletIndicati ons:Hyperlipem ia, mixed TAKE 1 TABLET BY MOUTH DAILY AT BEDTIME 90 Tablet 3 11/28/19 24 2024 Discontinued pantoprazole (PROTONIX) 40 mg EC tabletIndicati ons:Epigastric pain,Nausea TAKE 1 TABLET BY MOUTH DAILY 90 Tablet 3 11/28/19 24 2024 Discontinued metoprolol succinate XL (TOPROL-XL) 25 mg 24 hr tabletIndicati ons:Coronary artery disease involving muckleshoot coronary artery of muckleshoot heart with other form of angina pectoris ([facility] V24) Take 1 Tablet by mouth 2 (two) times daily 180 Tablet 2 03/22/20 24 2024 Discontinued ferrous sulfate 325 mg (65 mg iron) EC tabletIndicati ons:Mild anemia Take 1 Tablet by mouth once daily with breakfast 90 Tablet 1 07/07/19 25 2024 Discontinued ascorbic acid, vitamin C, (VITAMIN C) 250 mg tabletIndicati ons:Mild anemia Take 1 Tablet by mouth once daily with breakfast Take with the IRON tabs 90 Tablet 1 07/07/19 25 2024 Discontinued Active Problems Problem Noted Date [...] August 31, 2018 10:05 EDT Encounter info: [id number][place] [facility] [place] [...] 3. No focal worrisome abnormality seen. WSN: [id number] Signature Line Dictated By: Carlos Shields MD [...] on November 18, 2016 9:50 Encounter info: [id number], [facility] [place], 11/18/2016 - 11/18/2016 Contributor system: [employer] * Final Report * Echo Complete-Doppler, Colorflow, M-Mode Transthoracic Echocardiography Report (TTE) Patient Demographics Patient Name PLACIDO FULLER Date of Study 11/18/2016 Corporate Gender Female Facility Race Ethnicity or Date of 1955 Height: 62 inches Age 61 year(s) Weight: 145 pounds Accession Number [id number] BSA: 1.67 m2 Room Number BMI: 26.52 kg/m2 Referring Physician Nayely VALLEJO Interpreting Joseph Chacko MD Physician Release And Technical Records Clerk Loyd Marquez RCS Indications Peripheral edema. Clinical [...] cm/s PV Peak Gradient: 2.5 mmHg E/Med E':6.46093 E/Lat E':7.101825 Cardiac Anatomy Left Ventricle/Interventricular Septum The left [...] on 08 June 2014 23:26 Encounter info: [id number], TONI, Ana Obv, 06/08/2014 - 06/10/2014 * Final Report [...] month followup it would be recommended. Examination 25794. Thank you for allowing me to participate in the care of this patient. Signature Line Dictated By: Richie Barnett MD Dictated Date/Time: 06/08/14 11:26 p Reviewed By: Richie Barnett MD Signed By: Richie Barnett MD Signed Date/Time: 06/08/14 11:26 pm Transcribed By: MARYSE Transcribed Date/Time: 06/08/14 11:[address] Angio Chest This document has an image Arthritis of knee, right on x-ray 10/22/2013/0 08/2013 CAD (coronary artery disease) s/p stent 03/30/20 13 Overview (01/20/2015): Result type: Cardiology Correspondence Result date: 18 November 2014 11:51 Result status: Preliminary Result title: Patient Letter Performed by: Imelda Garcia MD on 18 November 2014 11:51 Encounter info: [id number], [facility], Office Visit, 11/18/2014 - 11/25/2014 Contributor system: NUANCE * Preliminary Report * Patient Letter (Unverified) PATIENT LETTER DATE:11/18/2014 [place] [address] Dear Diann Lewis was seen in cardiac clinic for follow-up with a historical interpreter. As you know, she is a [...] There was only a lipid panel in 2012, showing total cholesterol greater than 300 with [...] Transcribed: 11/18/2014 14:19:27 Transcribed by: ALLAN DocID: [id number] PRELIMINARY REPORT UNLESS MANUALLY/ELECTRONICALLY SIGNED CC:Debbie VALLEJO [address], [address] History of tobacco use, quit 201103/30/2013 Hypertension, essential, benign 03/30/2013 Hyperlipemia, mixed 03/30/2013 H/O colonoscopy 09/201508/13/2007 Overview (02/01/2016): Result type: Histology Result date: 19 Sep 2015 13:06 Result status: Auth (Verified) Result title: Performed by: Jarrell Amos MD on 19 Sep 2015 13:06 Verified by: Jarrell Amos MD on 19 Sep 2015 13:06 Encounter info: [id number], [facility], 09/19/2015 - 09/19/2015 Contributor system: [employer] * Final Report * Patient Name: PLACIDO [...] and 2- 3 and 4 pieces respectively, 3, eoe. (VC)* Part 2. Labeled gastric biopsy . Received in formalin are 5 portions of soft, العرايق tissue ranging from 0.3 x 0.2 x 0.1 cm to 0.6 x 0.2 x 0.1 cm. The specimens are submitted in toto. 1--5 pieces, 3, eoe. (VC)* Part 3. Labeled gastric polyp . Received in formalin are 3 portions of soft, العراقي tissue ranging from 0.2 x 0.1 x 0.1 cm to 0.4 x 0.2 x 0.1 cm. The specimens are submitted in toto. 1--3 pieces, 3, eoe. (VC)* Part 4. Labeled rectal polyp . Received in formalin are 2 portions of العراقي, polypoid tissue measuring 0.2 x 0.1 x 0.1 cm and 0.5 x 0.3 x 0.1 cm. The specimens are submitted in toto. 1--2 pieces, 3, eoe. (VC)* Phone #: [phone], On-Call Pathologist: [id number] Gastritis Overview (01/26/2021): Result type: Histology Result date: 12 August 2006 8:00 Result status: Auth (Verified) Result title: [id number] Performed by: [email or web address] -UNKNOWN, PERSONNEL on 12 August 2006 8:00 Verified by: [email or web address] -UNKNOWN, PERSONNEL on 12 August 2006 8:00 Encounter info: [id number], TONI, Ana Villanueva, 08/12/2006 - 08/12/2006 Contributor system: [employer] * Final Report * [id number] Patient Name: PLACIDO FULLER Accesssion #: [id number] Patient : 1955 (Age: 51) Collection Date: [...] immunohistochemistry and in- situ hybridization laboratories at [facility]. They may not have been cleared or approved by the U.S. Food and Drug Administration (FDA). However, the FDA has determined that such clearance or approval is not necessary. These tests are used for clinical purposes. They should not be regarded as investigational or for research. Gross Description: Labelled a ntrum/body . Received in formalin are four pieces of soft العراقي tissue that range in size from 0.2 x 0.2 x 0.2 cm to 0.4 x 0.1 x 0.1 cm. The specimens are submitted in toto. 1 - 4 pieces, x3, plus H. Pylori, eoe (BENNY) Primary Pathologist: Karen Potts M.D. Phone #: [phone], On-Call Pathologist: [id number] Chronic midline low back pain without sciatica Encounters Date Type Department Care Team Description 09/29/2024 10:00 AM EDT Office Visit [address] [id number] Debbie Polk PA-C from Last 3 Months Immunizations Immunization Administration Dates Next Due Flu, High Dose, 65y+, Fluzone High Dose 01/18/20 23 Flu, Preservative Free 02/03/2017 Influenza (FLUZONE), high-dose, trivalent, PF Moderna COVID-19 Vaccine, re d cap blue label, 12+ Primary Series 08/19/2020,07/21/2020 PFIZER COVID VACCINE, PURPLE CAP, 12+ 05/01/2021 PNEUMOCOCCAL CONJUGATE PCV 20 (Prevnar 20) 01/17 PNEUMOCOCCAL POLYSACCHARIDE PPV23 (Pneumovax 23) 01/13/2016 Td (adult),2 Lf tetanus toxo id (TDVAX), preservative free 02/03/1996 ZOSTER VACCINE, RECOMBINANT (SHINGRIX) Social [...] 81 09/29/2024 9:55 AM EDT Temperature 36.7 C (98.1 F) 09/29/2024 9:55 AM EDT Respiratory Rate 16 09/29/2024 9:55 AM EDT [...] Imm-Zoster, Recombinant (2 of 2) 08/07/2021 06/12/2021 [id number] ( season) 2024 05/01/2021, 08/19/2020, 07/21/2020 Postponed from 01/04/2024 (Patient postponement) Imm-Influenza (#1) 2025 01/17/2023, 0 07/14/2019, 02/03/2017, Additional history exists Lipid Screening 01/26/2025 01/27/2024, 07/03, 01/17/2023, Additional history exists Falls Prevention 07/13/2025 07/13/2024 (Man aged by Outside Provider) Diabetes Screening 09/29/2025 09/29/2024, 0 06/16/2024, 05/13/2024, Additional history exists Tobacco Screening 09/29/2025 09/29/2024 Breast Cancer Screening (Mammogram) 09/15/2026 09/15/2024, 05/15/2023, 09/20/2020, Additional history exists Colonoscopy 07/05/2027 07/04/2022, 09/19/2015 Colorectal Cancer Screening 07/05/2027 Hepatitis C Screening Completed 12/09/2018 Imm-Pneumococcal 50+ Completed 01/17/2023, 01/13/20 16 Bone Density Screening [...] Procedure Name Priority Date/Time Associated Diagnosis Comments REFERRAL SCANNED DOCUMENT 10/19/2024 3:00 AM EDT IMAGING SCANNED DOCUMENT 10/08/2024 3:00 AM EDT LACTATE DEHYDROGENASE LDH Routine 09/29/2024 10:22 AM EDT HGA1C W/EAG Routine 09/29/2024 10:22 AM EDT Coronary artery disease involving muckleshoot coronary artery of muckleshoot heart with other form of angina pectoris ([facility]) Hyperlipemia, mixed Hypertension, essential, benign Normocytic anemia Mild vitamin D deficiency Elevated glucose HEPATIC FUNCTION PANEL Routine 10:22 AM EDT Coronary artery disease involving muckleshoot coronary artery of muckleshoot heart with other form of angina pectoris ([facility] V24) Hyperlipemia, mixed Hypertension, essential, benign Normocytic anemia Mild vitamin D deficiency Elevated glucose BLOOD COUNT RETICULOCYTE AUTOMATED Routine 09/29/2024 10:22 AM EDT Coronary artery disease involving muckleshoot coronary artery of muckleshoot heart with other form of angina pectoris ([facility] V24) Hyperlipemia, mixed Hypertension, essential, benign Normocytic anemia Mild vitamin D deficiency Elevated glucose VITAMIN B12 & FOLATE Routine 09/29/2024 10:22 AM EDT Coronary artery disease involving muckleshoot coronary artery of muckleshoot heart with other form of angina pectoris ([facility] V24) Hyperlipemia, mixed Hypertension, essential, benign Normocytic anemia Mild vitamin D deficiency Elevated glucose IRON, TIBC, FERRITIN PANEL Routine 09/29/2024 10:22 AM EDT Coronary artery disease involving muckleshoot coronary artery of muckleshoot heart with other form of angina pectoris ([facility] V24) Hyperlipemia, mixed Hypertension, essential, benign Normocytic anemia Mild vitamin D deficiency Elevated glucose BLOOD COUNT COMPLETE AUTO&AUTO DIFRNTL WBC Routine 09/29/2024 10:22 AM EDT Coronary artery disease involving muckleshoot coronary artery of muckleshoot heart with other form of angina pectoris ([facility]-HCC V24) Hyperlipemia, mixed Hypertension, essential, benign Normocytic anemia Mild vitamin D deficiency Elevated glucose IMAGING SCANNED DOCUMENT 09/16/2024 3:00 AM EDT SCREENING MAMMOGRAM BILATERAL Routine 09/15/2024 3:00 AM EDT Encounter for screening mammogram for malignant neoplasm of breast LIPID PANEL Routine 01/27/2024 11:53 AM EDT Routine general medical examination at a [facility] care facility Mild anemia Hyperlipemia, mixed Hypertension, essential, benign Dizziness DXA BONE DENSITY STUDY / SITES AXIAL SKEL Routine 05/15/2023 3:00 AM EST Osteoporosis screening HISTORIC COLONOSCOPY 07/04/2022 3:00 AM EST HEPATITIS A,B,C PANEL Routine 12/09/2018 11:11 AM EDT Pre-op exam from Last 3 Months or Most Recently Relevant to Health Maintenance Results * REFERRAL SCANNED DOCUMENT (10/19/2024 3:00 AM EDT) 10/19/2024 3:00 AM EDT [employer] PA-C SCAN REFERRAL Final Result * IMAGING SCANNED DOCUMENT (10/08/2024 3:00 AM EDT) Only the most recent of2 resultswithin the time period is included. 10/08/2024 3:00 AM EDT [employer] Lukin PA-C SCAN IMAGING Final Result * (ABNORMAL) HGA1C W/EAG Routine (09/29/2024 10:22 AM EDT) HEMOGLOBIN A1C 5.8(H) <5.7 % [employer] Comment: For someone without known diabetes, a [...] diabetes for children. EAG (MG/DL) 120 mg/dL [employer] [facility] EAG (MMOL/L) 6.6 mmol/L [employer] [facility] Blood Blood / Unknown 09/29/2024 1 0:22 AM EDT 09/29/2024 10:23 AM EDT Narrative [employer] - 09/30/2024 7:37 AM EDT SPECIALIZED COLLECTION. PATIENT REFERRED TO ALTERNATE SITE. us Debbie Polk PA-C LAB - BLOOD DRAW Edited Resu lt - Final Performing Organization Address [facility] de Phone Number [employer] [address] [address], [employer] [address] [address] * (ABNORMAL) IRON, TIBC, FERRITIN PANEL Routine (09/29/2024 10:22 AM EDT) FERRITIN 26 16 - 288 ng/mL [employer] [facility] IRON, TOTAL 44(L) 45 - 160 mcg/dL [employer] [facility] IRON BINDING CAPACITY 303 250 - 450 mcg/dL (calc) [employer] [facility] % SATURATION 15(L) 16 - 45 % (calc) [employer] [facility] Blood Blood / Unknown 09/29/2024 1 0:22 AM EDT 09/29/2024 10:23 AM EDT Narrative [employer] - 09/30/2024 7:37 AM EDT SPECIALIZED COLLECTION. PATIENT REFERRED TO ALTERNATE SITE. us Debbie Polk PA-C LAB - BLOOD DRAW Final Resul t Performing Organization Address [facility] de Phone Number [employer] [address] [address], [employer] [address] [address] * VITAMIN B12 & FOLATE Routine (09/29/2024 10:22 AM EDT) Pathologist [facility] VITAMIN B12 304 200 - 1,100 pg/mL [employer] Comment: Please Note: Although the reference range for vitamin B12 is 200-1100 pg/mL, it has been reported that between 5 and 10% of patients with values between 200 and 400 pg/mL may experience neuropsychiatric and hematologic abnormalities due to occult B12 deficiency; less than 1% of patients with values above 400 pg/mL will have symptoms. FOLATE, SERUM 14.1 5.5 ng/mL [employer] [facility] Comment: Reference Range Low: <3.4 Borderline: 3.4-5.4 Normal: >5.4 Blood Blood / Unknown 09/29/2024 1 0:22 AM EDT 09/29/2024 10:23 AM EDT Narrative [employer] - 09/30/2024 7:37 AM EDT SPECIALIZED COLLECTION. PATIENT REFERRED TO ALTERNATE SITE. us Debbie Polk PA-C LAB - BLOOD DRAW Edited Resu lt - Final Performing Organization Address [facility] Co de Phone Number [employer] [address] [place] [phone], [employer] [address] [place] [phone] * BLOOD COUNT RETICULOCYTE AUTOMATED Routine (09/29/2024 10:22 AM EDT) [facility] RETICULOCYTE COUNT, AUTOMATED 1.2 % [employer] [facility] RETICULOCYTE, ABSOLUTE 42,120 20,000 - 80,000 cells/uL [employer] [facility] Blood Blood / Unknown 09/29/2024 1 0:22 AM EDT 09/29/2024 10:23 AM EDT Narrative [employer] - 09/30/2024 7:37 AM EDT SPECIALIZED COLLECTION. PATIENT REFERRED TO ALTERNATE SITE. us Debbie Polk PA-C LAB - BLOOD DRAW Final Resul t Performing Organization Address [facility] Co de Phone Number [employer] [address] [place] [address], [employer] [address] [place] [phone] * (ABNORMAL) BLOOD COUNT COMPLETE AUTO&AUTO DIFRNTL WBC Routine (09/29/2024 10:22 AM EDT) WHITE BLOOD CELL COUNT 5.8 3.8 - 10.8 Thousand/ uL [facility] RED BLOOD CELL COUNT 3.51(L) 3.80 - 5.10 Million/u L [facility] HEMOGLOBIN 10.9(L) 11.7 - 15.5 g/dL [facility] HEMATOCRIT 32.9(L) 35.0 - 45.0 % [facility] MCV 93.7 80.0 - 100.0 fL [employer] [facility] MCH 31.1 27.0 - 33.0 pg [facility] [facility] MCHC 33.1 32.0 - 36.0 g/dL [employer] [facility] Comment: For adults, a slight decrease in the calculated MCHC value (in the range of 30 to 32 g/dL) is most likely not clinically significant; however, it should be interpreted with caution in correlation with other red cell parameters and the patient's clinical condition. RDW 13.1 11.0 - 15.0 % [facility] [facility] PLATELET COUNT 179 140 - 400 Thousand/ uL [employer] [facility] MPV 10.9 7.5 - 12.5 fL [facility] [facility] ABSOLUTE NEUTROPHILS 4,043 1,500 - 7,800 cells/uL [facility] ABSOLUTE LYMPHOCYTES 1,067 850 - 3,900 cells/uL [facility] ABSOLUTE MONOCYTES 470 200 - 950 cells/uL [facility] ABSOLUTE EOSINOPHILS 191 15 - 500 cells/uL [facility] ABSOLUTE BASOPHILS 29 0 - 200 cells/uL [facility] NEUTROPHILS PCT 69.7 % [facility] LYMPHOCYTES 18.4 % [facility] MONOCYTES 8.1 % [facility] [employer] EOSINOPHILS 3.3 % [facility] BASOPHILS 0.5 % [facility] Blood Blood / Unknown 09/29/2024 1 0:22 AM EDT 09/29/2024 10:23 AM EDT Narrative [employer] - 09/30/2024 7:37 AM EDT SPECIALIZED COLLECTION. PATIENT REFERRED TO ALTERNATE SITE. us Debbie Polk PA-C LAB - BLOOD DRAW Edited Resu lt - Final Performing Organization Address [facility] Co de Phone Number [employer] [address] [address], [employer] [address] [phone] * LACTATE DEHYDROGENASE LDH Routine (09/29/2024 10:22 AM EDT) Pathologist [facility] LD 159 120 - 250 U/L [employer] [facility] 09/29/2024 10:2 2 AM EDT 09/29/2024 10:23 AM EDT [employer] [facility] - 09/30/2024 7:37 AM EDT SPECIALIZED COLLECTION. PATIENT REFERRED TO ALTERNATE SITE. Debbie Polk PA-C LAB - BLOOD DRAW Final Resul t Performing Organization Address [facility] de Phone Number [employer] [address] [address], [employer] [address] [address] * HEPATIC FUNCTION PANEL Routine (09/29/2024 10:22 AM EDT) [facility] PROTEIN, TOTAL 6.3 6.1 - 8.1 g/dL [employer] [facility] ALBUMIN 3.9 3.6 - 5.1 g/dL [employer] [facility] GLOBULIN 2.4 1.9 - 3.7 g/dL (calc) [employer] [facility] ALBUMIN/GLOBULIN RATIO 1.6 1.0 - 2.5 (calc) [employer] [facility] BILIRUBIN, TOTAL 0.4 0.2 - 1.2 mg/dL [employer] [facility] BILIRUBIN, DIRECT 0.1 0.0 - 0.2 mg/dL [employer] [facility] BILIRUBIN, INDIRECT 0.3 0.2 - 1.2 mg/dL (calc) [employer] [facility] ALKALINE PHOSPHATASE 79 37 - 153 U/L [employer] [facility] AST 20 10 - 35 U/L [employer] [facility] ALT 12 6 - 29 U/L [employer] [facility] Blood Blood / Unknown 09/29/2024 1 0:22 AM EDT 09/29/2024 10:23 AM EDT [employer] - 09/30/2024 7:37 AM EDT SPECIALIZED COLLECTION. PATIENT REFERRED TO ALTERNATE SITE. us Debbie Polk PA-C LAB - BLOOD DRAW Final Resul t [employer] [address] [address], [facility] [address] [place] [address] * SCREENING MAMMOGRAM BILATERAL (09/15/2024 3:00 AM EDT) 09/15/2024 3:00 AM EDT Debbie Polk PA-C IMG MAMMO Final Result * (ABNORMAL) LIPID PANEL (01/27/2024 11:53 AM EDT) CHOLESTEROL, TOTAL 183 <200 mg/dL [facility] HDL CHOLESTEROL 55 > OR = 50 mg/dL [facility] TRIGLYCERIDES 142 <150 mg/dL [facility] LDL-CHOLESTEROL 104(H) 99 mg/dL (calc) [facility] Comment: Reference range: <100 Desirable range <100 mg/dL for primary prevention; <70 mg/dL for patients with CHD or diabetic patients with > or = 2 CHD risk factors. LDL-C is now calculated using the Farhan-Jose calculation, which is a validated novel method providing better accuracy than the Friedewald equation in the estimation of LDL-C. Farhan SS et al. LYN. 2013;310(19): 9225-8440 (http://education.Rockerbox/faq/GYV877) CHOL/HDLC RATIO 3.3 <5.0 (calc) [facility] NON-HDL CHOLESTEROL 128 <130 mg/dL (calc) [facility] Comment: For patients with diabetes plus 1 major ASCVD risk factor, treating to a non-HDL-C goal of <100 mg/dL (LDL-C of <70 mg/dL) is considered a therapeutic option. Blood Blood / Unknown 01/27/2024 1 1:53 AM EDT 01/27/2024 11:54 AM EDT Narrative [facility] - 01/29/2024 7:39 PM EDT FASTING:NO us Debbie Polk PA-C LAB - BLOOD DRAW Final Resul t [facility] [address] [address], [facility] [address] [place] [address] * DXA BONE DENSITY STUDY 1/> SITES AXIAL SKEL (05/15/2023 3:00 AM EST) 05/15/2023 3:00 AM EST us Debbie Polk PA-C IMG DXA Final Result * HISTORIC COLONOSCOPY (07/04/2022 3:00 AM EST) 07/04/2022 3:00 AM EST Debbie Polk PA-C PROCEDURES Edited Resul t - Final * (ABNORMAL) HEPATITIS A,B,C PANEL (12/09/2018 11:11 AM EDT) HEPATITIS B SURFACE ANTIGEN NEGATIVE NEGATIVE [facility] Comment: Over the counter supplements containing high doses of biotin may interfere with this assay. If interference is suspected, patients shoud be retested after refraining from biotin supplements for 72 hours. HEPATITIS B SURFACE ANTIBODY NEGATIVE NEGATIVE [facility] HEPATITIS C VIRUS DIAGNOSTIC NEGATIVE NEGATIVE [facility] HEPATITIS A ANTIBODY TOTAL POSITIVE(A) NEGATIVE [facility] Comment: Over the counter supplements containing high doses of biotin may interfere with this assay. If interference is suspected, patients shoud be retested after refraining from biotin supplements for 72 hours. HEPATITIS B CORE ANTIBODY NEGATIVE NEGATIVE [facility] Blood specimen (specimen) Blood / Unknown 12/09/2018 11:11 AM EDT 12/09/2018 11:15 AM EDT Narrative [facility] - 12/09/2018 4:05 PM EDT [employer] a member of [address] [address] [place] - Candice [place] [id number] ORD# [id number] Debbie Polk PA-C LAB - BLOOD DRAW Edited Resu lt - Final [facility] [address], from Last 3 Months or Most Recently Relevant to Health Maintenance Insurance [facility] Care Teams Dope Firer Relationship Specialty Start Date End Date Debbie Polk PA-C [address] [place] [address] PCP - General 02/12/13
[2024-11-25 18:24] LABS: MANUAL DIFF FLAG NO
[2024-11-25 18:26] LABS: Hematocrit 37.1 % (37.0-47.0); Hemoglobin 12.3 g/dl (12.0-16.0); Imm Gran Abs Auto 0.03 X10*3/uL (0.00-0.03); Imm Gran Pct Auto 0.4 % (0.0-0.4); Lymphocytes Absolute Auto 1.5 X10*3/uL (1.2-4.9); Mean Corpuscular HGB Conc 33.2 g/dl (31.0-35.0); Mean Corpuscular Hemoglobin 29.9 pg (27.0-33.0); Mean Corpuscular Volume 90.0 fL (80.0-98.0); NRBC Abs Auto 0.000 X10*3/uL (0.0-0.012); NRBC Pct Auto 0.0 /100WBC (0.0-0.2); Platelet Count 172 X10*3/uL (160-400); Red Blood Count 4.12 X10*6/uL (4.20-5.50); White Blood Count 8.2 X10*3/uL (4.8-10.8)
--- NOTE | 2024-11-25 18:41 | PC.NURSE ---
Addendum entered by Cathy Taylor RN 11/25/24 18:41: Patient is a 68 yo female with PMH of HLD, HTN managed by Lisinopril / HCTZ, metoprolol, amlodipine, edema on lasix 20mg, anxiety on lorazepam who presents to the ED with complaints of chest pain and back pain started today at 11:00AM, lasted for 2-3 hours. Got better after getting to Dr. Zepeda. I received an expect from [facility], and spoke to Dr. Zepeda who stated that she does have a history of PID with multiple vessel disease, catheterization in 2010. Patient alert and oriented. Daughter at the bedside. Placed on the playground monitor and NSR noted. Patient denies any CP at this time. Lungs clear bilat. Respiration even and non-labored. Abdomen soft, flat, non-tender with positive bowel sounds. Positive pedal pulses with no edema. Original Note: Medical History Headache Cervicalgia Insomnia Depression Arthritis HTN (hypertension)
[2024-11-25 18:45] LABS: Alanine Aminotransferase 13 U/L (0-31); Albumin Level 4.6 g/dL (3.5-5.0); Alkaline Phosphatase 92 U/L (39-117); Anion Gap 14 (12-20); Aspartate Amino Transferase 34 U/L (5-31); Blood Urea Nitrogen 17 mg/dL (9-16); Calcium 9.5 mg/dL (8.4-10.2); Carbon Dioxide 24 mmol/L (22-29); Chloride 107 mmol/L (96-108); Creatinine Clr Calc Pharmacy 59.8; Estimated Glomerular Filt Rate > 60; Magnesium 2.1 mg/dL (1.6-2.6); Potassium 4.0 mmol/L (3.3-5.1); Sodium 141 mmol/L (135-145); Total Protein 7.4 g/dL (6.5-8.0)
[2024-11-25 18:46] LABS: B Type Natriuretic Peptide 181 pg/mL (<100)
[2024-11-25 18:50] LABS: Troponin-I High Sensitivity 5.7 ng/L (<3.5-17.0)
--- NOTE | 2024-11-25 19:11 | MHC.EDTECH ---
EKG done by maico
[2024-11-25] MEDS: Metoprolol Succinate ER 25 MG TAB.ER.24H PO (19:40)
[2024-11-25 21:09] LABS: Troponin-I High Sensitivity 15.1 ng/L (<3.5-17.0)
[2024-11-25 23:04] LABS: Troponin-I High Sensitivity 16.8 ng/L (<3.5-17.0)
== END 2024-11-25 23:38 | disposition home or self-care (01) ==
PROVIDERS: Physician Assistant; Physician Assistant Medical; Emergency Provider Internal Medicine; PCP Physician Assistant
DX: R07.89 Other chest pain (principal); I10 Essential (primary) hypertension; M54.9 Dorsalgia, unspecified; I25.10 Atherosclerotic heart disease of native coronary artery without angina pectoris; Z79.899 Other long term (current) drug therapy
CPT/HCPCS: 36415; 71045; 80048; 80076; 83735; 83880; 84484; 85025; 93005; 99283; 99285

== ENCOUNTER → 2024-11-25 17:52 | Outpatient (BNV) | payer OTHER, SELFPAY | PROVIDERS: Emergency Provider Internal Medicine; PCP Physician Assistant; Visit Provider Internal Medicine Cardiovascular Disease | DX: R07.9 Chest pain, unspecified (principal) | CPT/HCPCS: 93010 ==

== ENCOUNTER → 2024-11-25 18:02 | Outpatient (BNV) | payer OTHER, SELFPAY | PROVIDERS: PCP Physician Assistant; Visit Provider Radiology Diagnostic Radiology | DX: R52 Pain, unspecified (principal) | CPT/HCPCS: 71045 ==

== ENCOUNTER 2025-01-20 11:08 | Outpatient (AMB) | payer OTHER, SELFPAY ==
--- NOTE | 2025-01-20 11:08 | A.OFFVIS_ITS ---
Vital Signs 01/20/25 11:11 Height 5 ft 2 in Weight 153 lb 4 oz BMI 28.0 BP 130/72 Blood Pressure Location Rt brachial Position Sitting Pulse 85 Pulse Source Pulse Oximeter Pulse Oximetry (%) 97 Oxygen Delivery Method Room Air Intake Visit Reasons: 6mon follow-up Intake Note: Follow up Cervicalgia and Headache Sales And Marketing Professional Required: Yes Sales And Marketing Professional Services: Sales And Marketing Professional Offered & Declined Sales And Marketing Professional Name: Daughter to interpret Accompanied by: Daughter Allergies No Known Allergies Allergy (Verified 01/20/25 11:09) Medication List - Last Reconciled 01/20/25 by Nadja Alcantara MD amitriptyline 10 mg PO BEDTIME amlodipine 2.5 mg PO DAILY ascorbic acid (vitamin C) 250 mg PO DAILY aspirin 81 mg PO DAILY atorvastatin 80 mg PO DAILY baclofen 20 mg (2 x 10 mg) PO BEDTIME diclofenac sodium 1% (Arthritis Pain (diclofenac)) 4 grams topical QID ferrous sulfate 325 mg PO DAILY fluoxetine 60 mg PO DAILY fluticasone furoate 50 mcg/actuation inhalation furosemide 20 mg PO DAILY gabapentin 300 mg PO DAILY hydrocortisone 2.5% 1 appl topical BID PRN hydroxyzine HCl 25 mg PO TID PRN lidocaine 4% (Lidocaine Pain Relief) patches topical lorazepam 1 mg PO BID melatonin mg PO metoprolol succinate ER 25 mg PO BID pantoprazole 40 mg PO DAILY plecanatide (Trulance) 3 mg PO DAILY sumatriptan succinate 25 mg PO Q2-4H PRN HPI Comments Details: 69y/o female comes here for follow up of headaches and dizziness.She decreased tylenol use to as needed . Her headaches and dizziness are better with baclofen and increasedNo evidence of intracranial hemorrhage, acute infarction, mass effect, or edema. 2. Moderate changes of small vessel ischemia. 3. There is bifrontal atrophy. fluids History from initial visit-It started about 4 - 6months ago. she describes the headaches are tingling in the parietal region and strong pressure . she saw her PCP at that time . MRI brain was normal as per patient.she says the headaches lasts the whole day. she has light sensitivity and nausea. she takes tylenol- helps for 2 hrs and recurs again.she was taking tylenol 1300mg q 2 hrs and has decreased to q 3 hrs. She was given sumatriptan but it makes her dizzy. she was recently in ER for hyponatremia . Her furosemide was stopped. Her sodium was 128 . she also had fluctuating BP as per ER notes. [facility] Medical History Headache Cervicalgia Insomnia Depression Arthritis HTN (hypertension) Physical Exam Vital Signs: Last Vital Signs Pulse 85 01/20/25 11:11 BP 130/72 01/20/25 11:11 Pulse Ox 97 01/20/25 11:11 Oxygen Delivery Method Room Air 01/20/25 11:11 BMI result Body Mass Index 28.0 Const General: cooperative and comfortable Nutritional Appearance: average body habitus Orientation/consciousness: patient oriented x3 Eyes Pupils: Equal, round and reactive pupils present Neuro Other: Neck - pain in the right splenius, occipitalis, semispinalis and trapezius. General: patient oriented x3, gait normal, tone normal, moves all extremities and no focal motor deficits Cranial nerves: Yes Facial sensation intact/muscles of mastication intact, Yes Equal, round and reactive pupils present, Yes Bilaterally intact EOM present, Yes Nystagmus not present, Yes Normal facial strength present, Yes Midline tongue present, Yes Symmetric palate elevation present and Yes Ability to bilaterally elevate shoulders present Cognition (Neuro): normal cognition Gait exam (Neuro): Normal gait present Motor exam (neuro): 5/5 motor strength present throughout and Normal motor muscle tone present throughout Coordination: [id number] test normal Assessment & Plan Assessment & Plan (1) Cervicalgia: Code(s): M54.2 - Cervicalgia Category: Medical (2) Headache: Code(s): R51.9 - Headache, unspecified Category: Medical Qualifiers: Headache type: cervicogenic headache Qualified Code(s): G44.86 - Cervicogenic headache Plan baclofen 10 mg 2 tabs qhs Magnesium 250mg qhs Tylenol as needed Neck ROM exercises Medications: Refilled baclofen 20 mg (2 x 10 mg) PO BEDTIME 60 tabs 0RF Coding Level of Care Code Est Pt Level 4 (38737) Diagnoses Cervicalgia M54.2 Cervicogenic headache G44.86 Headache type: cervicogenic headache
[2025-01-20 11:11] VITALS: BP 130/72; PULSE 85; O2SAT 97; BMI 28.0
--- OUTSIDE RECORDS SUMMARY | 2025-01-20 13:28 | XMS_ITS | Clinical Summary ---
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 V24) TAKE 1 TABLET BY MOUTH TWICE [...] IRON. 90 Tablet 3 11/04/19 25 Active loratadine (CLARITIN) 10 mg tabletIndicati ons:Non-season al allergic rhinitis, unspecified trigger TAKE 1 TABLET BY MOUTH ONCE DAILY NEEDED FOR ALLERGIES. 90 Tablet 3 11/28/19 25 Active lidocaine (SALONPAS, LIDOCAINE,) 4 % ptmd Place 1 Patch onto the skin 3 (three) times daily. 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 For constipation 90 Tablet 3 03/01/20 24 2024 Discontinued Active Problems Problem Noted [...] August 31, 2018 10:05 EDT Encounter info: [id number], [facility], One Time OP, 08/29/2018 - 08/29/2018 * [...] 3. No focal worrisome abnormality seen. WSN: [id number] Signature Line Dictated By: Carlos Shields MD [...] on November 18, 2016 9:50 Encounter info: [id number], [facility], One Time OP, 11/18/2016 - 11/18/2016 Contributor system: [employer] * Final Report * Echo Complete-Doppler, Colorflow, M-Mode Transthoracic Echocardiography Report (TTE) Patient Demographics Patient Name PLACIDO FULLER Date of Study 11/18/2016 Corporate Gender Female Facility Race Ethnicity or Date of 1955 Height: 62 inches Age 61 year(s) Weight: 145 pounds Accession Number [id number] BSA: 1.67 m2 Room Number BMI: 26.52 kg/m2 Referring Physician Nayely VALLEJO Interpreting Joseph Chacko MD Physician Information Technology Instructor Loyd Marquez [facility] Indications Peripheral edema. Clinical History Hypertension. CAD. [...] cm/s PV Peak Gradient: 2.5 mmHg E/Med E':6.02034 E/Lat E':7.953973 Cardiac Anatomy Left Ventricle/Interventricular Septum The left [...] on 08 June 2014 23:26 Encounter info: [id number], [facility], Disch Obv, 06/08/2014 - 06/10/2014 * [...] month followup it would be recommended. Examination 01227. Thank you for allowing me to participate [...] on 18 November 2014 11:51 Encounter info: [id number], [facility], Office Visit, 11/18/2014 - 11/25/2014 Contributor system: [employer] * Preliminary Report * Patient Letter (Unverified) PATIENT LETTER DATE:11/18/2014 [place] [address] Dear Diann Lewis was seen in cardiac clinic for follow-up with a precision honer. As you know, she is a 59-year-old [...] Transcribed: 11/18/2014 14:19:27 Transcribed by: ALLAN DocID: [id number] PRELIMINARY REPORT UNLESS MANUALLY/ELECTRONICALLY SIGNED CC:Debbie VALLEJO [address] [place], [address] History of tobacco use, quit 201103/30/2013 Hypertension, essential, benign 03/30/2013 Hyperlipemia, mixed 03/30/2013 H/O colonoscopy 09/201508/13/2007 Overview (02/01/2016): Result type: Histology Result date: 19 Sep 2015 13:06 Result status: Auth (Verified) Result title: Performed by: Jarrell Amos MD on 19 Sep 2015 13:06 Verified by: Jarrell Amos MD on 19 Sep 2015 13:06 Encounter info: [id number], [facility], Ana Terranceta, 09/19/2015 - 09/19/2015 Contributor system: [employer] * Final Report * Patient Name: PLACIDO [...] 1--2 pieces, 3, eoe. (VC)* Phone #: [phone], On-Call Pathologist: [id number] Gastritis Overview (01/26/2021): Result type: Histology Result date: 12 August 2006 8:00 Result status: Auth (Verified) Result title: Performed by: [email or web address] -UNKNOWN, PERSONNEL on 12 August 2006 8:00 Verified by: [email or web address] -UNKNOWN, PERSONNEL on 12 August 2006 8:00 Encounter info: [id number], [facility], Ana Terranceta, 08/12/2006 - 08/12/2006 Contributor system: [employer] * Final Report * Patient Name: PLACIDO FULLER Lab Accesssion #: [id number] Patient : 1955 (Age: 51) Collection Date: [...] immunohistochemistry and in- situ hybridization laboratories at [facility]. They may not have been cleared [...] Primary Pathologist: Karen Potts M.D. 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 Immunizations Immunization Administration Dates Next Due Flu, High Dose, 65y+, Fluzone High Dose 01/18/20 Flu, Preservative Free 02/03/2017 Influenza (FLUZONE), high-dose, trivalent, PF Moderna COVID-19 Vaccine, re d cap blue label, 12+ Primary Series 08/19/2020,07/21/2020 PFIZER COVID VACCINE, PURPLE CAP, 12+ 05/01/2021 PNEUMOCOCCAL CONJUGATE PCV 20 (Prevnar 20) 01/17 PNEUMOCOCCAL POLYSACCHARIDE PPV23 (Pneumovax 23) 01/13/2016 Td (adult),2 Lf tetanus toxo id (TDVAX), preservative free 02/03/1996 ZOSTER VACCINE, RECOMBINANT (SHINGRIX) 2 [...] 09/29/2024 9:55 AM EDT Plan of Treatment Upcoming Encounters Date Type Department Care Team (Late st Contact Info) Description 02/01/2025 1:00 PM EDT Office Visit [facility] [address] [place] [address] Debbie Polk PA-C [address] [place] [address] Health Maintenance Due Date Last Done Comments Medicare Annual Wellness Visit 1971 Imm-DTaP/Tdap/Td (1 - Tdap) 02/04/1996 02/03/1996 CT Colonography 1998 Fecal DNA 1998 Flexible Sigmoidoscopy 1998 FIT/gFOBT 07/09/2015 07/08/2014 (Decl ined), 05/11/2013 (Declined) Imm-Zoster, Recombinant (2 of 2) 08/07/2021 06/12/19 22 Tou-NGDBH-70 ( season) 2025 05/01/2021, 08/19/2020, 07/21/2020 Imm-Influenza (#1) 2025 01/17/2023, 0 07/14/2019, 02/03/2017, [...] Date/Time Associated Diagnosis Comments REFERRAL SCANNED DOCUMENT 11/30/2024 3:00 AM EDT REFERRAL SCANNED DOCUMENT 11/25/2024 3:00 AM EDT IMAGING SCANNED DOCUMENT 11/25/2024 3:00 AM EDT IMAGING SCANNED DOCUMENT 11/25/2024 3:00 AM EDT HGA1C W/EAG Routine 09/29/2024 10:22 AM EDT Coronary artery disease involving dry creek coronary artery of dry [place] heart with other form of angina pectoris ([facility] V24) Hyperlipemia, mixed Hypertension, essential, benign Normocytic anemia Mild vitamin D deficiency Elevated glucose SCREENING MAMMOGRAM BILATERAL Routine 09/15/2024 3:00 AM [...] Health Maintenance Results * REFERRAL SCANNED DOCUMENT (11/30/2024 3:00 AM EDT) Only the most recent of2 resultswithin the time period is included. 11/30/2024 3:00 AM EDT [facility] Provider Default SCAN REFERRAL Final Resu lt * IMAGING SCANNED DOCUMENT (11/25/2024 3:00 AM EDT) Only the most recent of2 resultswithin the time period is included. 11/25/2024 3:00 AM EDT Debbie Polk PA-C SCAN IMAGING Final Result * (ABNORMAL) HGA1C W/EAG Routine (09/29/2024 10:22 AM EDT) HEMOGLOBIN A1C 5.8(H) <5.7 % [employer] Comment: For someone without known diabetes, a [...] diabetes for children. EAG (MG/DL) 120 mg/dL [employer] EAG (MMOL/L) 6.6 mmol/L [employer] [place] [employer] Blood Blood / Unknown 09/29/2024 1 0:22 AM EDT 09/29/2024 10:23 AM EDT Narrative [employer] [facility] - 09/30/2024 7:37 AM EDT SPECIALIZED COLLECTION. PATIENT REFERRED TO ALTERNATE SITE. us Debbie Polk PA-C LAB - BLOOD DRAW Edited Resu lt - Final [employer] [address] [address], [employer] [address] [id number] * SCREENING MAMMOGRAM BILATERAL (09/15/2024 3:00 AM EDT) 09/15/2024 3:00 AM EDT Debbie Polk PA-C IMG MAMMO Final Result * (ABNORMAL) LIPID PANEL (01/27/2024 11:53 AM EDT) CHOLESTEROL, TOTAL 183 <200 mg/dL [employer] [facility] HDL CHOLESTEROL 55 > OR = 50 mg/dL [facility] [place] [employer] TRIGLYCERIDES 142 <150 mg/dL [facility] LDL-CHOLESTEROL 104(H) 99 mg/dL (calc) [employer] [place] [employer] Comment: Reference range: <100 Desirable range <100 mg/dL for primary prevention; <70 mg/dL for patients with CHD or diabetic patients with > or = 2 CHD risk factors. LDL-C is now calculated using the Vasyl calculation, which is a validated novel method providing better accuracy than the Friedewald equation in the estimation of LDL-C. Farhan LEMUS et al. LYN. 2013;310(19): 6747-0523 (http://education.[employer].COFCO/faq/QME824) CHOL/HDLC RATIO 3.3 <5.0 (calc) [employer] NON-HDL CHOLESTEROL 128 <130 mg/dL (calc) [employer] Comment: For patients with diabetes plus 1 major ASCVD risk factor, treating to a non-HDL-C goal of <100 mg/dL (LDL-C of <70 mg/dL) is considered a therapeutic option. Blood Blood / Unknown 01/27/2024 1 1:53 AM EDT 01/27/2024 11:54 AM EDT Narrative [employer] - 01/29/2024 7:39 PM EDT FASTING:NO us Debbie Polk PA-C LAB - BLOOD DRAW Final Resul t [employer] [address] [address], [employer] [address] [place] [phone] * DXA BONE DENSITY STUDY 1/> SITES AXIAL SKEL (05/15/2023 3:00 AM EST) 05/15/2023 3:00 AM EST us Debbie Polk PA-C IMG DXA Final Result * HISTORIC COLONOSCOPY (07/04/2022 3:00 AM EST) 07/04/2022 3:00 AM EST us Debbie Polk PA-C PROCEDURES Edited Resul t - Final * (ABNORMAL) HEPATITIS A,B,C PANEL (12/09/2018 11:11 AM EDT) HEPATITIS B SURFACE ANTIGEN NEGATIVE NEGATIVE [facility] Comment: Over the counter supplements containing high doses of biotin may interfere with this assay. If interference is suspected, patients shoud be retested after refraining from biotin supplements for 72 hours. HEPATITIS B SURFACE ANTIBODY NEGATIVE NEGATIVE [facility] HEPATITIS C VIRUS DIAGNOSTIC NEGATIVE NEGATIVE [facility] HEPATITIS A ANTIBODY TOTAL POSITIVE(A) NEGATIVE [facility] Comment: Over the counter supplements containing high doses of biotin may interfere with this assay. If interference is suspected, patients shoud be retested after refraining from biotin supplements for 72 hours. HEPATITIS B CORE ANTIBODY NEGATIVE NEGATIVE [facility] [employer] [facility] Blood specimen (specimen) Blood / Unknown 12/09/2018 11:11 AM EDT 12/09/2018 11:15 AM EDT Narrative [facility] - 12/09/2018 4:05 PM EDT [employer], [place] [address] [employer] - Candice Holden MD [place] [id number] ORD# [id number] Debbie Polk PA-C LAB - BLOOD DRAW Edited Resu lt - Final [facility] [place] Organization Address City/State/ZIP [place] [address], from Last 3 Months or Most Recently Relevant to Health Maintenance Insurance [facility] GENEVIEVE ALMAGUER [id number] Care Teams Hand Tool Filer Relationship Specialty Start Date End Date Debbie Polk PA-C [address] [place] [address] PCP - General 02/12/13
== END 2025-01-20 11:35 | disposition home or self-care (01) ==
LOC: HO.HSMS 11:08
PROVIDERS: PCP Physician Assistant; Visit Provider Psychiatry & Neurology Neurology
DX: M54.2 Cervicalgia (principal); G44.86 Cervicogenic headache
CPT/HCPCS: 99214

== ENCOUNTER → 2025-01-20 11:08 | Outpatient (BNVA) | payer OTHER, SELFPAY | PROVIDERS: PCP Physician Assistant; Visit Provider Psychiatry & Neurology Neurology | DX: M54.2 Cervicalgia (principal); G44.86 Cervicogenic headache | CPT/HCPCS: 99212 ==